=== PATIENT | female | born 1950 | race Caucasian/White ===

== ENCOUNTER → 2016-09-12 | Outpatient (CLI) | payer MEDICARE ==
[~2016-09-12] MED LIST: /ESCI20TA OR; ADVAIR INH; BABY81CH OR; BACT2CRE EX; CIPRO PO; DIPH2.5L OR; FLAG500T OR; GLUCTAB2 OR; HYDR25TA6 OR; LOPROX TOP; NASONEX; PLAV75TA2 OR; PREPARATION H TOP; PRIL20CA OR; SING10TA31 PO; VALS40TA OR; XANA1TAB OR; ZANT150T OR; ZOCO40TA OR; mucinex PO; xyzal PO
--- NOTE | 2016-09-12 10:19 | REPMRS ---
Patient History The patient states she had a clinical breast exam in 09/2016. Patient is postmenopausal and has history of other cancer at age 38. Family history of prostate cancer in brother at age 50 or over. Digital Woman Screen Mammo: September 12, 2016 - Exam #: [id number] Bilateral CC and MLO view(s) were taken. Technologist: Lashell Rutledge, Technologist Prior study comparison: May 25, 2015, digital woman screen mammo performed at [facility] to [facility]. May 07, 2014, digital woman screen mammo performed at [facility]. FINDINGS: There are scattered fibroglandular densities. There has been no change in the appearance of the mammogram from the prior studies. There is a mild amount of residual fibroglandular tissue which is fairly symmetric. There is no interval development of dominant mass, architectural distortion, or clustered microcalcification suggestive of malignancy. ASSESSMENT: BI-RADS/ACR category 1 mammogram. Negative. Recommendation Routine screening mammogram in 1 year (for women over age 40). This mammogram was interpreted with the aid of an FDA-approved computer-aided dectection system. Electronically Signed By: Wood Kwong MD 09/12/16 [id number]
== END ==
LOC: M WHC 08:21
PROVIDERS: ATTEND Nurse Practitioner Women's Health
DX: Z12.31 Encounter for screening mammogram for malignant neoplasm of breast (principal); Z78.0 Asymptomatic menopausal state
CPT/HCPCS: G0202; G0463

== ENCOUNTER → 2017-01-21 | Outpatient (REF) | payer MEDICARE ==
[2017-01-21 12:25] LABS: INR 1.15
[2017-01-21 12:39] LABS: ANION GAP 9 MEQ/L (8-16); BLOOD UREA NITROGEN 17 MG/DL (7-18); CALCIUM LEVEL 9.7 MG/DL (8.8-10.2); CARBON DIOXIDE LEVEL 27 MEQ/L (21-32); CHLORIDE LEVEL 105 MEQ/L (98-107); CREATININE FOR GFR 0.84 MG/DL (0.55-1.02); GLOMERULAR FILTRATION RATE > 60.0 (>45); GLUCOSE, FASTING 119 MG/DL (80-110); POTASSIUM SERUM 4.2 MEQ/L (3.5-5.1); SODIUM LEVEL 141 MEQ/L (136-145)
[2017-01-21 16:16] LABS: MEAN CORPUSCULAR HEMOGLOBIN 28.8 pg (27.0-33.0); MEAN CORPUSCULAR HGB CONC 32.1 g/dl (32.0-36.5); MEAN CORPUSCULAR VOLUME 89.6 fl (80.0-96.0); WHITE BLOOD COUNT 5.8 K/mm3 (4.0-10.0)
== END ==
LOC: M LABDRAWP 11:57
PROVIDERS: ATTEND Internal Medicine Cardiovascular Disease
DX: I48.0 Paroxysmal atrial fibrillation (principal)

== ENCOUNTER → 2017-01-21 | Outpatient (REF) | payer MEDICARE ==
[2017-01-21 12:36] LABS: ALBUMIN 3.6 GM/DL (3.2-5.2); ALBUMIN/GLOBULIN RATIO 1.33 (1.00-1.93); ALKALINE PHOSPHATASE 68 U/L (45-117); ALT/SGPT 24 U/L (12-78); ANION GAP 9 MEQ/L (8-16); AST/SGOT 14 U/L (15-37); BILIRUBIN,TOTAL 0.4 MG/DL (0.2-1.0); BLOOD UREA NITROGEN 17 MG/DL (7-18); CALCIUM LEVEL 9.4 MG/DL (8.8-10.2); CARBON DIOXIDE LEVEL 27 MEQ/L (21-32); CHLORIDE LEVEL 105 MEQ/L (98-107); CHOLESTEROL LEVEL 165 MG/DL (<200); CREATININE FOR GFR 0.86 MG/DL (0.55-1.02); GLOMERULAR FILTRATION RATE > 60.0 (>45); GLUCOSE, FASTING 121 MG/DL (80-110); POTASSIUM SERUM 4.2 MEQ/L (3.5-5.1); SODIUM LEVEL 141 MEQ/L (136-145); TOTAL PROTEIN 6.3 GM/DL (6.4-8.2); TRIGLYCERIDES LEVEL 154 MG/DL (<150)
[2017-01-21 12:51] LABS: MEAN CORPUSCULAR HEMOGLOBIN 29.2 pg (27.0-33.0); MEAN CORPUSCULAR HGB CONC 32.1 g/dl (32.0-36.5); MEAN CORPUSCULAR VOLUME 91.1 fl (80.0-96.0); RED CELL DISTRIBUTION WIDTH 13.9 % (11.5-14.5); WHITE BLOOD COUNT 5.6 K/mm3 (4.0-10.0)
== END ==
LOC: M SFHCPLAZ 09:09
PROVIDERS: ATTEND Nurse Practitioner Family
DX: I69.30 Unspecified sequelae of cerebral infarction (principal); E11.9 Type 2 diabetes mellitus without complications; E78.2 Mixed hyperlipidemia; I48.0 Paroxysmal atrial fibrillation

== ENCOUNTER → 2017-01-30 | Outpatient (REF) | payer MEDICARE | LOC: M SFHCPLAZ 11:11 | PROVIDERS: ATTEND Nurse Practitioner Family | DX: E11.9 Type 2 diabetes mellitus without complications (principal) ==

== ENCOUNTER → 2017-02-07 | Outpatient (REF) | payer MEDICARE ==
[2017-02-07 11:58] LABS: MEAN CORPUSCULAR HEMOGLOBIN 28.7 pg (27.0-33.0); MEAN CORPUSCULAR HGB CONC 32.4 g/dl (32.0-36.5); MEAN CORPUSCULAR VOLUME 88.6 fl (80.0-96.0); RED CELL DISTRIBUTION WIDTH 14.2 % (11.5-14.5); WHITE BLOOD COUNT 4.9 K/mm3 (4.0-10.0)
[2017-02-07 12:21] LABS: INR 2.81
== END ==
LOC: M LABDRAWP 11:40
PROVIDERS: ATTEND Internal Medicine Cardiovascular Disease
DX: Z79.01 Long term (current) use of anticoagulants (principal); Z95.2 Presence of prosthetic heart valve

== ENCOUNTER → 2017-02-21 | Outpatient (REF) | payer MEDICARE ==
[2017-02-21 13:59] LABS: MEAN CORPUSCULAR HEMOGLOBIN 29.1 pg (27.0-33.0); MEAN CORPUSCULAR HGB CONC 32.7 g/dl (32.0-36.5); MEAN CORPUSCULAR VOLUME 88.9 fl (80.0-96.0); WHITE BLOOD COUNT 5.3 K/mm3 (4.0-10.0)
[2017-02-21 14:09] LABS: INR 2.9
== END ==
LOC: M WUC 12:53
PROVIDERS: ATTEND Internal Medicine Cardiovascular Disease
DX: Z51.81 Encounter for therapeutic drug level monitoring (principal); Z79.01 Long term (current) use of anticoagulants; Z95.2 Presence of prosthetic heart valve

== ENCOUNTER → 2017-03-14 | Outpatient (REF) | payer MEDICARE ==
[~2017-03-14] MED LIST changes: +ALBU83IN INH; +COUM2.5T17 PO; +FISH1000 PO; +HYDR12.55 PO; +LEVOTAB10 PO; +METF500T4 PO; +METO1TAB32 PO; +PATA2.5S OP; +PEPC1TAB2 PO; +VALS1TAB49 PO; +WARF-18 PO
[2017-03-14 12:28] LABS: INR 2.56
== END ==
LOC: M LABDRAWP 11:41
PROVIDERS: ATTEND Internal Medicine Cardiovascular Disease
DX: Z79.01 Long term (current) use of anticoagulants (principal)

== ENCOUNTER 2017-04-05 17:27 | Emergency (ER) | payer MEDICARE ==
[~2017-04-05] VITALS: Ht 162.6 cm; Wt 99.5 kg
[~2017-04-05 17:27] MED LIST changes: -ALBU83IN INH; -COUM2.5T17 PO; -FISH1000 PO; -HYDR12.55 PO; -LEVOTAB10 PO; -METF500T4 PO; -METO1TAB32 PO; -PATA2.5S OP; -PEPC1TAB2 PO; -VALS1TAB49 PO; -WARF-18 PO
[2017-04-05] MEDS ORDERED: PEPC1TAB2 PO (17:59)
[2017-04-05] MEDS ORDERED: METO1TAB32 PO (17:59)
[2017-04-05] MEDS ORDERED: LEVOTAB10 PO (17:59)
[2017-04-05] MEDS ORDERED: HYDR12.55 PO (17:59)
[2017-04-05] MEDS ORDERED: VALS1TAB49 PO (17:59)
[2017-04-05] MEDS ORDERED: METF500T4 PO (17:59)
[2017-04-05] MEDS ORDERED: ALBU83IN INH (17:59)
[2017-04-05] MEDS ORDERED: WARF-18 PO (17:59)
[2017-04-05 18:59] LABS: BASO % 0.5 % (0.0-1.0); EOS # 0.1 K/mm3 (0.0-0.50); EOS % 2.8 % (0.0-3.0); LARGE UNSTAINED CELL # 0.2 K/mm3 (0.0-0.4); LYMPH # 0.9 K/mm3 (1.5-4.5); LYMPH % 14.4 % (24.0-44.0); MEAN CORPUSCULAR HEMOGLOBIN 29.7 pg (27.0-33.0); MEAN CORPUSCULAR HGB CONC 34.2 g/dl (32.0-36.5); MEAN CORPUSCULAR VOLUME 86.8 fl (80.0-96.0); MONO # 0.4 K/mm3 (0.0-0.8); NEUTROPHILS # 3.6 K/mm3 (1.8-7.7); NEUTROPHILS % 71.2 % (36.0-66.0); PLATELET COUNT, AUTOMATED 255 k/mm3 (150-450); RED CELL DISTRIBUTION WIDTH 14.7 % (11.5-14.5); WHITE BLOOD COUNT 5.1 K/mm3 (4.0-10.0)
[2017-04-05 19:12] LABS: INR 2.24
[2017-04-05 19:19] LABS: ANION GAP 10 MEQ/L (8-16); BLOOD UREA NITROGEN 12 MG/DL (7-18); CALCIUM LEVEL 9.3 MG/DL (8.8-10.2); CARBON DIOXIDE LEVEL 28 MEQ/L (21-32); CHLORIDE LEVEL 101 MEQ/L (98-107); CREATININE FOR GFR 0.63 MG/DL (0.55-1.02); GLOMERULAR FILTRATION RATE > 60.0 (>45); GLUCOSE, FASTING 111 MG/DL (80-110); POTASSIUM SERUM 3.6 MEQ/L (3.5-5.1); SODIUM LEVEL 139 MEQ/L (136-145)
--- NOTE | 2017-04-05 19:20 | REPUSA ---
CT of the head Clinical history: Headache. Protocol: Multiple axial CT images obtained with 5 mm slice thickness were obtained through the head without administration of contrast. Findings: The ventricles and sulci are symmetric but prominent in size bilaterally. There is chronic encephalomalacia in the right parietal lobe. There is no evidence of acute hemorrhage or infarct. The re is no midline shift, mass effect, or extra-axial fluid collection. The osseous structures are unre markable. The visualized paranasal sinuses and mastoid air cells are clear. Impression: No acute hemorrhage or infarct. Moderate age-related atrophy. Chronic infarct in the righ t parietal lobe.
[2017-04-05] MEDS ORDERED: COUM2.5T17 PO (19:42)
[2017-04-05] MEDS ORDERED: FISH1000 PO (19:42)
[2017-04-05] MEDS ORDERED: PATA2.5S OP (19:42)
--- NOTE | 2017-04-05 19:58 | REP ---
HISTORY: Chest pain. COMPARISON: 08/02/2015 Note is again made of global cardiomegaly with previous median sternotomy, status quo. Chronic fibrotic changes seen in the lung bases particularly on the left, status quo. There is mild thickening of the right minor fissure with a subtle increase in the interstitial markings throughout the lung kincaid. IMPRESSION: Cardiomegaly and mild interstitial edema is suspected. Signed by Sean Duval DO 04/06/2017 08:45 A
[2017-04-05] MEDS ORDERED: FUROSEMIDE 40 MG/4 ML VIAL (J1940) IV ONE (20:45)
[2017-04-05 21:25] VITALS: BP 164/72
--- NOTE | 2017-04-07 02:27 | ECGEPIP ---
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
== END 2017-04-05 21:26 | disposition short-term general hospital (02) ==
LOC: EDBD 17:27 → M ED 17:27 → EDSEX 17:27 → M ED 21:26
DX: I49.5 Sick sinus syndrome (principal); I50.9 Heart failure, unspecified; I45.10 Unspecified right bundle-branch block; I44.0 Atrioventricular block, first degree; I11.0 Hypertensive heart disease with heart failure; E11.9 Type 2 diabetes mellitus without complications; I48.91 Unspecified atrial fibrillation; Z86.73 Personal history of transient ischemic attack (TIA), and cerebral infarction without residual deficits; J30.1 Allergic rhinitis due to pollen; Z79.899 Other long term (current) drug therapy; Z79.82 Long term (current) use of aspirin; Z79.51 Long term (current) use of inhaled steroids; Z79.84 Long term (current) use of oral hypoglycemic drugs; Z79.01 Long term (current) use of anticoagulants
CPT/HCPCS: 70450; 71010; 80048; 82550; 82553; 83880; 84443; 84484; 85025; 85610; 85730; 93005; 93041; 94760; 99285; G0463

== ENCOUNTER → 2017-04-11 | Outpatient (REF) | payer MEDICARE ==
[~2017-04-11] MED LIST changes: +ALBU83IN INH; +COUM2.5T17 PO; +FISH1000 PO; +HYDR12.55 PO; +LEVOTAB10 PO; +METF500T4 PO; +METO1TAB32 PO; +PATA2.5S OP; +PEPC1TAB2 PO; +VALS1TAB49 PO; +WARF-18 PO
[2017-04-11 12:38] LABS: MEAN CORPUSCULAR HEMOGLOBIN 29.7 pg (27.0-33.0); MEAN CORPUSCULAR HGB CONC 34.2 g/dl (32.0-36.5); MEAN CORPUSCULAR VOLUME 86.7 fl (80.0-96.0); RED CELL DISTRIBUTION WIDTH 14.7 % (11.5-14.5); WHITE BLOOD COUNT 5.2 K/mm3 (4.0-10.0)
[2017-04-11 12:43] LABS: INR 1.43
== END ==
LOC: M LAB REF 11:28
PROVIDERS: ATTEND Internal Medicine Cardiovascular Disease
DX: Z51.81 Encounter for therapeutic drug level monitoring (principal); Z79.01 Long term (current) use of anticoagulants; Z95.2 Presence of prosthetic heart valve

== ENCOUNTER → 2017-04-19 | Outpatient (REF) | payer MEDICARE ==
[2017-04-19 13:51] LABS: MEAN CORPUSCULAR HEMOGLOBIN 29.2 pg (27.0-33.0); MEAN CORPUSCULAR HGB CONC 32.9 g/dl (32.0-36.5); MEAN CORPUSCULAR VOLUME 88.5 fl (80.0-96.0); RED CELL DISTRIBUTION WIDTH 14.5 % (11.5-14.5); WHITE BLOOD COUNT 5.2 K/mm3 (4.0-10.0)
[2017-04-19 13:54] LABS: INR 2.32
== END ==
LOC: M LAB REF 13:35
PROVIDERS: ATTEND Internal Medicine Cardiovascular Disease
DX: N95.2 Postmenopausal atrophic vaginitis (principal); Z51.81 Encounter for therapeutic drug level monitoring; Z79.01 Long term (current) use of anticoagulants
CPT/HCPCS: 85027; 85610; G0463

== ENCOUNTER → 2017-05-01 | Outpatient (REF) | payer MEDICARE ==
[2017-05-01 11:59] LABS: MEAN CORPUSCULAR HEMOGLOBIN 29.3 pg (27.0-33.0); MEAN CORPUSCULAR HGB CONC 33.5 g/dl (32.0-36.5); MEAN CORPUSCULAR VOLUME 87.6 fl (80.0-96.0); RED CELL DISTRIBUTION WIDTH 14.2 % (11.5-14.5); WHITE BLOOD COUNT 4.6 K/mm3 (4.0-10.0)
[2017-05-01 12:04] LABS: INR 3.45
== END ==
LOC: M LABDRAWP 11:48
PROVIDERS: ATTEND Internal Medicine Cardiovascular Disease
DX: Z79.01 Long term (current) use of anticoagulants (principal); Z95.2 Presence of prosthetic heart valve

== ENCOUNTER → 2017-05-15 | Outpatient (REF) | payer MEDICARE ==
[2017-05-15 12:35] LABS: MEAN CORPUSCULAR HEMOGLOBIN 29.4 pg (27.0-33.0); MEAN CORPUSCULAR HGB CONC 33.5 g/dl (32.0-36.5); MEAN CORPUSCULAR VOLUME 87.8 fl (80.0-96.0); RED CELL DISTRIBUTION WIDTH 14.3 % (11.5-14.5); WHITE BLOOD COUNT 4.5 K/mm3 (4.0-10.0)
== END ==
LOC: M LABDRWAD 11:36
PROVIDERS: ATTEND Internal Medicine Cardiovascular Disease
DX: Z79.01 Long term (current) use of anticoagulants (principal); Z95.0 Presence of cardiac pacemaker

== ENCOUNTER → 2017-05-27 | Outpatient (REF) | payer MEDICARE ==
[2017-05-27 12:23] LABS: MEAN CORPUSCULAR HEMOGLOBIN 29.3 pg (27.0-33.0); MEAN CORPUSCULAR HGB CONC 32.6 g/dl (32.0-36.5); MEAN CORPUSCULAR VOLUME 89.9 fl (80.0-96.0); RED CELL DISTRIBUTION WIDTH 14.6 % (11.5-14.5); WHITE BLOOD COUNT 4.9 K/mm3 (4.0-10.0)
[2017-05-27 12:26] LABS: INR 2.32
== END ==
LOC: M LABDRAWP 11:32
PROVIDERS: ATTEND Internal Medicine Cardiovascular Disease
DX: Z95.2 Presence of prosthetic heart valve (principal); Z79.01 Long term (current) use of anticoagulants

== ENCOUNTER → 2017-06-10 | Outpatient (REF) | payer MEDICARE ==
[2017-06-10 11:47] LABS: MEAN CORPUSCULAR HEMOGLOBIN 28.9 pg (27.0-33.0); MEAN CORPUSCULAR HGB CONC 32.7 g/dl (32.0-36.5); MEAN CORPUSCULAR VOLUME 88.3 fl (80.0-96.0); RED CELL DISTRIBUTION WIDTH 14.7 % (11.5-14.5); WHITE BLOOD COUNT 5.1 10^3/uL (4.0-10.0)
[2017-06-10 12:00] LABS: INR 2.38
== END ==
LOC: M LABDRAWP 11:27
PROVIDERS: ATTEND Internal Medicine Cardiovascular Disease
DX: Z51.81 Encounter for therapeutic drug level monitoring (principal); Z79.01 Long term (current) use of anticoagulants; Z95.2 Presence of prosthetic heart valve
CPT/HCPCS: 36415; 69210; 85027; 85610; G0463

== ENCOUNTER → 2017-06-13 | Outpatient (CLI) | payer MEDICARE ==
--- NOTE | 2017-06-13 10:31 | REP ---
Chest x-ray: Two views. History: Cough. Comparison study April 05, 2017. Findings: The patient is status post prior median sternotomy and aortic valve replacement. A bipolar pacemaker is seen in the right heart via the left subclavian vein region. The heart is enlarged unchanged from the comparison radiograph. There is some linear fibrosis versus chronic discoid atelectasis in the left perihilar region. This is unchanged. Lung kincaid are otherwise clear. The pleural angles are sharp. There are mild degenerative changes in the thoracic spine and aorta. Impression: Cardiomegaly with pacemaker. Patient status post aortic valve replacement. Fibroatelectatic changes left perihilar region. No acute abnormality seen. Signed by Eduardo Correa MD 06/13/2017 11:24 A
== END ==
LOC: M SMT 09:40
PROVIDERS: ATTEND Internal Medicine Pulmonary Disease
DX: I51.7 Cardiomegaly (principal); Z95.0 Presence of cardiac pacemaker; R05 Cough

== ENCOUNTER 2017-06-19 22:39 | Emergency (ER) | payer MEDICARE ==
[~2017-06-19] VITALS: Ht 160 cm; Wt 100.0 kg
[2017-06-19] MEDS ORDERED: methylPREDNISolone INJ 125 MG/2 ML VIAL (J2930) IV ONE (23:15)
[2017-06-19 23:34] LABS: ABG BASE EXCESS -1.2 (-2.0-2.0); ABG HCO3 23.2 MEQ/L (22.0-26.0); ABG PARTIAL PRESSURE CO2 38.2 mmHg (35.0-45.0); ABG PARTIAL PRESSURE O2 64.9 mmHg (75.0-100.0); ABG STANDARD HCO3 23.3 MEQ/L (22.0-26.0); ABG TOTAL CO2 24.4 MEQ/L (23.0-31.0); ABG pH (ARTERIAL) 7.402 UNITS (7.350-7.450)
[2017-06-19 23:34] LABS: BASO # 0.1 10^3/uL (0.0-0.2); BASO % 0.5 % (0.0-1.0); EOS # 0.2 10^3/uL (0.0-0.50); EOS % 1.4 % (0.0-3.0); IMMATURE GRANULOCYTE % 0.5 % (0-0); LYMPH # 1.8 10^3/uL (1.5-4.5); LYMPH % 13.6 % (24.0-44.0); MEAN CORPUSCULAR HEMOGLOBIN 28.9 pg (27.0-33.0); MEAN CORPUSCULAR HGB CONC 32.5 g/dl (32.0-36.5); MEAN CORPUSCULAR VOLUME 88.9 fl (80.0-96.0); MONO # 1.1 10^3/uL (0.0-0.8); MONO % 8.4 % (0.0-5.0); NEUTROPHILS # 9.8 10^3/uL (1.8-7.7); NEUTROPHILS % 75.6 % (36.0-66.0); PLATELET COUNT, AUTOMATED 366 10^3/uL (150-450); RED CELL DISTRIBUTION WIDTH 14.6 % (11.5-14.5)
[2017-06-19] MEDS: IPRATROPIUM 0.5MG/ALBUTEROL 2.5MG INH SOL UD 3ML (DUONEB)(J7620) NEB PRN ×2 (23:39→23:41)
[2017-06-19 23:41] LABS: INR 2.94
[2017-06-19] MEDS ORDERED: MORPHINE 2 MG/ML 1ML SYRINGE IV ONE (23:45)
[2017-06-19] MEDS ORDERED: ONDANSETRON 4MG/2ML VIAL (J2405) IV ONE (23:45)
[2017-06-19] MEDS ORDERED: FUROSEMIDE 40 MG/4 ML VIAL (J1940) IV ONE (23:45)
[2017-06-19 23:54] LABS: ANION GAP 10 MEQ/L (8-16); BLOOD UREA NITROGEN 20 MG/DL (7-18); CALCIUM LEVEL 9.7 MG/DL (8.8-10.2); CARBON DIOXIDE LEVEL 26 MEQ/L (21-32); CHLORIDE LEVEL 101 MEQ/L (98-107); CREATININE FOR GFR 0.83 MG/DL (0.55-1.02); GLOMERULAR FILTRATION RATE > 60.0 (>45); GLUCOSE, FASTING 230 MG/DL (80-110); POTASSIUM SERUM 3.7 MEQ/L (3.5-5.1); SODIUM LEVEL 137 MEQ/L (136-145)
[2017-06-20] MEDS ORDERED: METOPROLOL TART 50 MG TAB PO ONE
[2017-06-20] MEDS ORDERED: METOPROLOL 5 MG/5 ML VIAL IV SCH
[2017-06-20 00:03] VITALS: BP 153/95
[2017-06-20 03:02] VITALS: BP 118/71
--- NOTE | 2017-06-20 03:04 | ECGEPIP ---
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
--- NOTE | 2017-06-20 07:36 | REP ---
Portable chest, 11:33 p.m., single AP view, patient sitting: Comparison is 06/13/2017. There is interstitial coarsening compatible with vascular engorgement and interstitial infiltrates. There is a focal infiltrate inferiorly in the right lung and a focal infiltrate medially in the left upper lobe as changes. Discoid atelectasis versus scarring is present in the left mid lung, unchanged. Sternotomy wires and cardiomegaly are again identified, unchanged. Pacemaker is again identified, unchanged. There is a cardiac valve replacement. Half half half half Signed by Wood Springer MD 06/20/2017 07:27 A
--- NOTE | 2017-06-21 07:35 | ECGEPIP ---
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
== END 2017-06-20 03:09 | disposition short-term general hospital (02) ==
LOC: EDBD 22:39 → M ED 22:39
DX: I21.4 Non-ST elevation (NSTEMI) myocardial infarction (principal); I50.9 Heart failure, unspecified; I47.2 Ventricular tachycardia; I48.91 Unspecified atrial fibrillation; I11.0 Hypertensive heart disease with heart failure; J44.9 Chronic obstructive pulmonary disease, unspecified; G47.33 Obstructive sleep apnea (adult) (pediatric); F95.9 Tic disorder, unspecified; I25.2 Old myocardial infarction; J45.909 Unspecified asthma, uncomplicated; F41.9 Anxiety disorder, unspecified; E78.9 Disorder of lipoprotein metabolism, unspecified; Z79.01 Long term (current) use of anticoagulants; Z79.84 Long term (current) use of oral hypoglycemic drugs; Z79.899 Other long term (current) drug therapy; Z79.82 Long term (current) use of aspirin; Z86.73 Personal history of transient ischemic attack (TIA), and cerebral infarction without residual deficits; Z95.4 Presence of other heart-valve replacement
CPT/HCPCS: 36600; 51702; 71010; 80048; 82550; 82553; 82803; 83605; 83880; 84443; 84484; 85025; 85610; 87040; 93005; 93041; 94640; 96374; 96375; 99285; J1940; J2405; J2930

== ENCOUNTER → 2017-07-23 | Outpatient (REF) | payer MEDICARE ==
[2017-07-23 13:32] LABS: MEAN CORPUSCULAR HEMOGLOBIN 28.6 pg (27.0-33.0); MEAN CORPUSCULAR HGB CONC 31.7 g/dl (32.0-36.5); MEAN CORPUSCULAR VOLUME 90.1 fl (80.0-96.0); PLATELET COUNT, AUTOMATED 248 10^3/uL (150-450); RED CELL DISTRIBUTION WIDTH 14.5 % (11.5-14.5); WHITE BLOOD COUNT 5.3 10^3/uL (4.0-10.0)
[2017-07-23 13:49] LABS: INR 3.51
== END ==
LOC: M LABDRAWP 13:15
PROVIDERS: ATTEND Internal Medicine Cardiovascular Disease
DX: Z51.81 Encounter for therapeutic drug level monitoring (principal); Z79.01 Long term (current) use of anticoagulants; Z95.2 Presence of prosthetic heart valve

== ENCOUNTER → 2017-08-05 | Outpatient (REF) | payer MEDICARE ==
[2017-08-05 13:25] LABS: MEAN CORPUSCULAR HEMOGLOBIN 28.5 pg (27.0-33.0); MEAN CORPUSCULAR HGB CONC 31.4 g/dl (32.0-36.5); MEAN CORPUSCULAR VOLUME 90.7 fl (80.0-96.0); PLATELET COUNT, AUTOMATED 254 10^3/uL (150-450); RED CELL DISTRIBUTION WIDTH 14.6 % (11.5-14.5); WHITE BLOOD COUNT 5.6 10^3/uL (4.0-10.0)
[2017-08-05 13:39] LABS: INR 2.87
== END ==
LOC: M LABDRAWP 11:29 → M LAB REF 11:29
PROVIDERS: ATTEND Internal Medicine Cardiovascular Disease
DX: Z95.2 Presence of prosthetic heart valve (principal); Z79.01 Long term (current) use of anticoagulants

== ENCOUNTER → 2017-08-19 | Outpatient (REF) | payer MEDICARE ==
[2017-08-19 12:47] LABS: MEAN CORPUSCULAR HEMOGLOBIN 28.7 pg (27.0-33.0); MEAN CORPUSCULAR HGB CONC 31.5 g/dl (32.0-36.5); MEAN CORPUSCULAR VOLUME 91.1 fl (80.0-96.0); PLATELET COUNT, AUTOMATED 282 10^3/uL (150-450); RED CELL DISTRIBUTION WIDTH 14.9 % (11.5-14.5); WHITE BLOOD COUNT 7.4 10^3/uL (4.0-10.0)
[2017-08-19 13:09] LABS: INR 3.05
== END ==
LOC: M LABDRAWP 12:02
PROVIDERS: ATTEND Internal Medicine Cardiovascular Disease
DX: Z79.01 Long term (current) use of anticoagulants (principal); Z95.2 Presence of prosthetic heart valve

== ENCOUNTER → 2017-09-03 | Outpatient (REF) | payer MEDICARE ==
[2017-09-03 12:20] LABS: INR 2.75
== END ==
LOC: M LABDRAW1 11:48 → M LABDRAWP 11:49
PROVIDERS: ATTEND Internal Medicine Cardiovascular Disease
DX: I48.0 Paroxysmal atrial fibrillation (principal); Z51.81 Encounter for therapeutic drug level monitoring; Z79.01 Long term (current) use of anticoagulants

== ENCOUNTER → 2017-09-18 | Outpatient (CLI) | payer MEDICARE ==
[2017-09-18 13:19] LABS: INR 2.63; PROTHROMBIN TIME 29.2 SECONDS (12.4-14.5)
== END ==
LOC: M SMT 08:56
DX: I48.0 Paroxysmal atrial fibrillation (principal); Z79.01 Long term (current) use of anticoagulants
CPT/HCPCS: 85610

== ENCOUNTER → 2017-10-09 | Outpatient (CLI) | payer MEDICARE ==
[2017-10-09 11:25] LABS: PROTHROMBIN TIME 44.3 SECONDS (12.4-14.5)
== END ==
LOC: M SMT 09:38
DX: I48.0 Paroxysmal atrial fibrillation (principal); Z79.01 Long term (current) use of anticoagulants
CPT/HCPCS: 85610

== ENCOUNTER → 2017-10-16 | Outpatient (CLI) | payer MEDICARE ==
[2017-10-16 11:12] LABS: PROTHROMBIN TIME 29.8 SECONDS (12.4-14.5)
== END ==
LOC: M SMT 09:49
DX: I48.0 Paroxysmal atrial fibrillation (principal); Z51.81 Encounter for therapeutic drug level monitoring; Z79.01 Long term (current) use of anticoagulants
CPT/HCPCS: 85610

== ENCOUNTER → 2017-11-20 | Outpatient (CLI) | payer MEDICARE ==
[2017-11-20 12:58] LABS: HEMATOCRIT 39.4 % (36.0-47.0); HEMOGLOBIN 12.2 g/dl (12.0-16.0); MEAN CORPUSCULAR HEMOGLOBIN 27.2 pg (27.0-33.0); MEAN CORPUSCULAR VOLUME 87.8 fl (80.0-96.0); PLATELET COUNT, AUTOMATED 293 10^3/uL (150-450); RED BLOOD COUNT 4.49 10^6/uL (4.00-5.40); RED CELL DISTRIBUTION WIDTH 15.5 % (11.5-14.5); WHITE BLOOD COUNT 6.5 10^3/uL (4.0-10.0)
[2017-11-20 13:09] LABS: INR 2.07
== END ==
LOC: M SMT 10:02
DX: I48.0 Paroxysmal atrial fibrillation (principal); Z79.01 Long term (current) use of anticoagulants
CPT/HCPCS: 85610

== ENCOUNTER → 2018-01-28 | Outpatient (REF) | payer MEDICARE ==
[2018-01-28 12:44] LABS: ALBUMIN 3.7 GM/DL (3.2-5.2); ALBUMIN/GLOBULIN RATIO 1.28 (1.00-1.93); ALKALINE PHOSPHATASE 79 U/L (45-117); ALT/SGPT 16 U/L (12-78); ANION GAP 8 MEQ/L (8-16); AST/SGOT 13 U/L (7-37); BILIRUBIN,TOTAL 0.4 MG/DL (0.2-1.0); BLOOD UREA NITROGEN 22 MG/DL (7-18); CALCIUM LEVEL 8.7 MG/DL (8.8-10.2); CARBON DIOXIDE LEVEL 28 MEQ/L (21-32); CHLORIDE LEVEL 108 MEQ/L (98-107); CREATININE FOR GFR 0.77 MG/DL (0.55-1.30); FREE T4 1.07 NG/DL (0.76-1.46); GLOMERULAR FILTRATION RATE > 60.0 (>39); GLUCOSE, FASTING 119 MG/DL (70-100); POTASSIUM SERUM 4.2 MEQ/L (3.5-5.1); SODIUM LEVEL 144 MEQ/L (136-145); TOTAL PROTEIN 6.6 GM/DL (6.4-8.2)
[2018-01-28 12:58] LABS: ESTIMATED AVERAGE GLUCOSE 148 MG/DL (60-110); HEMOGLOBIN A1c 6.8 %
== END ==
LOC: M SFHCPLAZ 08:23
DX: E78.2 Mixed hyperlipidemia (principal); E11.9 Type 2 diabetes mellitus without complications
CPT/HCPCS: 84443

== ENCOUNTER → 2018-07-03 | Outpatient (REF) | payer MEDICARE ==
[2018-07-03 17:51] LABS: BASO % 0.6 % (0.0-1.0); EOS # 0.1 10^3/uL (0.0-0.50); EOS % 2.1 % (0.0-3.0); HEMATOCRIT 40.7 % (36.0-47.0); HEMOGLOBIN 12.7 g/dl (12.0-15.5); IMMATURE GRANULOCYTE % 0.3 % (0-3.0); LYMPH % 15.1 % (24.0-44.0); MEAN CORPUSCULAR HEMOGLOBIN 28.2 pg (27.0-33.0); MEAN CORPUSCULAR HGB CONC 31.2 g/dl (32.0-36.5); MEAN CORPUSCULAR VOLUME 90.2 fl (80.0-96.0); MONO # 0.7 10^3/uL (0.0-0.8); MONO % 11.4 % (0.0-5.0); NEUTROPHILS # 4.4 10^3/uL (1.8-7.7); NEUTROPHILS % 70.5 % (36.0-66.0); PLATELET COUNT, AUTOMATED 301 10^3/uL (150-450); RED BLOOD COUNT 4.51 10^6/uL (4.00-5.40); RED CELL DISTRIBUTION WIDTH 15.1 % (11.5-14.5); WHITE BLOOD COUNT 6.3 10^3/uL (4.0-10.0)
[2018-07-03 18:03] LABS: FERRITIN 16 NG/ML (8-252); FOLATE 17.9 NG/ML; TOTAL 25(OH) VITAMIN D 26.6 NG/ML (30.0-100.0)
== END ==
LOC: M SFHCPLAZ 14:53
DX: E55.9 Vitamin D deficiency, unspecified (principal); R53.83 Other fatigue; Z79.899 Other long term (current) drug therapy; Z23 Encounter for immunization
CPT/HCPCS: 82746

== ENCOUNTER → 2018-07-23 | Outpatient (REF) | payer MEDICARE ==
[2018-07-23 13:24] LABS: ALBUMIN 3.4 GM/DL (3.2-5.2); ALKALINE PHOSPHATASE 71 U/L (45-117); ALT/SGPT 22 U/L (12-78); ANION GAP 7 MEQ/L (8-16); AST/SGOT 16 U/L (7-37); BILIRUBIN,TOTAL 0.4 MG/DL (0.2-1.0); BLOOD UREA NITROGEN 24 MG/DL (7-18); CALCIUM LEVEL 8.7 MG/DL (8.8-10.2); CARBON DIOXIDE LEVEL 30 MEQ/L (21-32); CHLORIDE LEVEL 107 MEQ/L (98-107); CHOLESTEROL LEVEL 165 MG/DL (<200); CHOLESTEROL RISK RATIO 3.586 (<5); CREATININE FOR GFR 0.73 MG/DL (0.55-1.30); GLOMERULAR FILTRATION RATE > 60.0 (>39); GLUCOSE, FASTING 117 MG/DL (70-100); HDL CHOLESTEROL 46 MG/DL (>40); LDL CHOLESTEROL 94 MG/DL (<100); NON-HDL-C 119 MG/DL; POTASSIUM SERUM 3.8 MEQ/L (3.5-5.1); SODIUM LEVEL 144 MEQ/L (136-145); TOTAL PROTEIN 6.5 GM/DL (6.4-8.2); TRIGLYCERIDES LEVEL 126 MG/DL (<150)
[2018-07-23 13:34] LABS: ESTIMATED AVERAGE GLUCOSE 143 MG/DL (60-110); HEMOGLOBIN A1c 6.6 %
== END ==
LOC: M SFHCPLAZ 09:25
DX: E11.9 Type 2 diabetes mellitus without complications (principal); E78.2 Mixed hyperlipidemia
CPT/HCPCS: 80053

== ENCOUNTER → 2018-08-20 | Outpatient (CLI) | payer MEDICARE | LOC: M WHC 13:56 | DX: Z12.31 Encounter for screening mammogram for malignant neoplasm of breast (principal) | CPT/HCPCS: 77067 ==

== ENCOUNTER → 2018-12-05 | Outpatient (REF) | payer MEDICARE ==
[2018-12-05 17:38] LABS: BASO % 0.5 % (0.0-1.0); EOS # 0.1 10^3/uL (0.0-0.50); EOS % 1.6 % (0.0-3.0); HEMATOCRIT 39.5 % (36.0-47.0); HEMOGLOBIN 12.2 g/dl (12.0-15.5); LYMPH # 0.7 10^3/uL (1.5-4.5); LYMPH % 12.5 % (24.0-44.0); MEAN CORPUSCULAR HEMOGLOBIN 27.8 pg (27.0-33.0); MEAN CORPUSCULAR HGB CONC 30.9 g/dl (32.0-36.5); MONO # 0.5 10^3/uL (0.0-0.8); MONO % 8.6 % (0.0-5.0); NEUTROPHILS # 4.3 10^3/uL (1.8-7.7); NEUTROPHILS % 76.6 % (36.0-66.0); PLATELET COUNT, AUTOMATED 277 10^3/uL (150-450); RED BLOOD COUNT 4.39 10^6/uL (4.00-5.40); WHITE BLOOD COUNT 5.6 10^3/uL (4.0-10.0)
[2018-12-05 17:50] LABS: BLOOD UREA NITROGEN 19 MG/DL (7-18); CALCIUM LEVEL 8.4 MG/DL (8.8-10.2); CARBON DIOXIDE LEVEL 29 MEQ/L (21-32); CHLORIDE LEVEL 105 MEQ/L (98-107); CREATININE FOR GFR 0.77 MG/DL (0.55-1.30); FERRITIN 14 NG/ML (8-252); FREE T4 0.99 NG/DL (0.76-1.46); GLOMERULAR FILTRATION RATE > 60.0 (>39); GLUCOSE, FASTING 161 MG/DL (70-100); POTASSIUM SERUM 3.9 MEQ/L (3.5-5.1); SODIUM LEVEL 142 MEQ/L (136-145)
[2018-12-05 17:51] LABS: TOTAL 25(OH) VITAMIN D 24.2 NG/ML (30.0-100.0)
[2018-12-05 17:52] LABS: FOLATE 8.3 NG/ML; VITAMIN B12 LEVEL 424 PG/ML
== END ==
LOC: M SFHCPLAZ 13:57
PROVIDERS: ATTEND Nurse Practitioner Family
DX: E55.9 Vitamin D deficiency, unspecified (principal); F32.9 Major depressive disorder, single episode, unspecified; R53.83 Other fatigue

== ENCOUNTER 2018-12-23 01:47 | Observation (INO) | payer MEDICARE ==
[~2018-12-23] VITALS: Ht 160 cm; Wt 95.7 kg
[~2018-12-23 01:47] MED LIST changes: -/ESCI20TA OR; +LEXA1TAB2 OR; -PEPC1TAB2 PO; +PEPC40TA12 PO
[2018-12-23] MEDS ORDERED: CARV6.25 PO (02:19)
[2018-12-23] MEDS ORDERED: CLON0.5T8 PO (02:19)
[2018-12-23] MEDS ORDERED: FURO40TA2 PO (02:19)
[2018-12-23] MEDS ORDERED: LAC-LOT2 TOP (02:19)
[2018-12-23] MEDS ORDERED: ENTR1TAB PO (02:19)
[2018-12-23] MEDS ORDERED: FLUT50SP21 NARES (02:19)
[2018-12-23 02:34] LABS: BASO % 0.2 % (0.0-1.0); EOS # 0.1 10^3/uL (0.0-0.50); EOS % 1.6 % (0.0-3.0); HEMATOCRIT 37.4 % (36.0-47.0); HEMOGLOBIN 11.8 g/dl (12.0-15.5); LYMPH # 0.6 10^3/uL (1.5-4.5); LYMPH % 7.5 % (24.0-44.0); MEAN CORPUSCULAR HEMOGLOBIN 28.3 pg (27.0-33.0); MEAN CORPUSCULAR HGB CONC 31.6 g/dl (32.0-36.5); MEAN CORPUSCULAR VOLUME 89.7 fl (80.0-96.0); MONO # 0.6 10^3/uL (0.0-0.8); MONO % 7.4 % (0.0-5.0); NEUTROPHILS # 7.1 10^3/uL (1.8-7.7); NEUTROPHILS % 82.7 % (36.0-66.0); PLATELET COUNT, AUTOMATED 270 10^3/uL (150-450); RED BLOOD COUNT 4.17 10^6/uL (4.00-5.40); WHITE BLOOD COUNT 8.5 10^3/uL (4.0-10.0)
[2018-12-23 02:49] LABS: INR 1.89
[2018-12-23 03:00] LABS: ALBUMIN 3.6 GM/DL (3.2-5.2); ALT/SGPT 22 U/L (12-78); BILIRUBIN,DIRECT 0.1 MG/DL (0.0-0.2); BILIRUBIN,TOTAL 0.5 MG/DL (0.2-1.0); BLOOD UREA NITROGEN 26 MG/DL (7-18); CALCIUM LEVEL 9.1 MG/DL (8.8-10.2); CARBON DIOXIDE LEVEL 26 MEQ/L (21-32); CHLORIDE LEVEL 110 MEQ/L (98-107); CPK CREATINE PHOSPHOKINASE 55 U/L (26-192); CREATININE FOR GFR 0.88 MG/DL (0.55-1.30); GLOMERULAR FILTRATION RATE > 60.0 (>39); GLUCOSE, FASTING 151 MG/DL (70-100); LIPASE 248 U/L (73-393); POTASSIUM SERUM 3.8 MEQ/L (3.5-5.1); SODIUM LEVEL 143 MEQ/L (136-145); TOTAL PROTEIN 6.6 GM/DL (6.4-8.2); TROPONIN I 0.52 NG/ML (< 0.10)
[2018-12-23] MEDS ORDERED: ONDANSETRON 4MG/2ML VIAL (J2405) IV ONE (03:15)
[2018-12-23] MEDS ORDERED: ISOVUE-370 76% 100ML VIAL (Q9967) As Ordered ONE (03:16)
[2018-12-23] MEDS: MORPHINE 4 MG/ML 1ML VIAL/SYRINGE (J2270) IV PRN ×2 (03:37→16:59)
--- NOTE | 2018-12-23 04:39 | REPVR ---
EXAM: CT Angiography Chest With Contrast EXAM DATE/TIME: 12/23/2018 3:09 AM CLINICAL HISTORY: 68 years old, female; Pain; Chest pain; Type not specified; Additional info: Abd pain, chest pain TECHNIQUE: Imaging protocol: Axial computed tomographic angiography images of the chest with intravenous contrast using CT angiography protocol. Coronal and sagittal reformatted images were created and reviewed. 3D rendering: MIP reconstructed images were created and reviewed. Radiation optimization: All CT scans at this facility use at least one of these dose optimization techniques: automated exposure control; mA and/or kV adjustment per patient size (includes targeted exams where dose is matched to clinical indication); or iterative reconstruction. Contrast material: iso Contrast volume: 100 ml Contrast route: ac COMPARISON: CR PORTABLE CHEST X-RAY 12/23/2018 2:42 AM FINDINGS: Tubes, catheters and devices: Cardiac device position left upper chest with multiple intracardiac leads. Pulmonary arteries: Normal. No pulmonary emboli. Aorta: Aortic valve prosthesis with calcification thoracic aorta. Dilatation of ascending thoracic aorta 4.5 CM. Other arteries: Prominent calcification at the proximal superior mesenteric artery. Lungs: Diffuse interstitial thickening versus vascular congestion with groundglass opacities bilaterally. Left mid lung subsegmental atelectasis. Pleural space: Small pleural effusions bilaterally. Heart: Cardiomegaly. Right to left ventricular ratio 0.8. Questionable artifact or partial intraluminal linear filling defect within a segmental artery to the right upper lung series 401 images 78-80 limited by 3 MM slice thickness and extensive motion. Gallbladder and bile ducts: Cholelithiasis. Intraperitoneal space: Minor fluid expansion of the minor fissure anteriorly. Lymph nodes: Unremarkable. No enlarged lymph nodes. Bones/joints: Postoperative sternotomy. Degenerative change of the spine. Soft tissues: Unremarkable. IMPRESSION: 1. Questionable linear intraluminal filling defect versus artifact segmental artery right upper lobe anteriorly significantly limited by slice thickness and motion. 2. Cardiac enlargement. 3. Dilated ascending thoracic aorta with aortic valve prosthesis. 4. Diffuse groundglass opacities with interstitial thickening versus pulmonary vascular congestion. Electronically signed by: Angie Meneses On 12/23/2018 04:38:43 AM
--- NOTE | 2018-12-23 04:47 | REPVR ---
EXAM: CT Abdomen and Pelvis With Contrast EXAM DATE/TIME: 12/23/2018 3:09 AM CLINICAL HISTORY: 68 years old, female; Pain; Abdominal pain; Generalized; Additional info: Abd pain, chest pain TECHNIQUE: Imaging protocol: Axial computed tomography images of the abdomen and pelvis with intravenous contrast. Coronal and sagittal reformatted images were created and reviewed. Radiation optimization: All CT scans at this facility use at least one of these dose optimization techniques: automated exposure control; mA and/or kV adjustment per patient size (includes targeted exams where dose is matched to clinical indication); or iterative reconstruction. Contrast material: iso Contrast volume: 100 ml Contrast route: ac COMPARISON: CT ABD PELVIS W/O CONTRAST 11/19/2012 4:41 PM FINDINGS: Lower thorax: A small hiatal hernia. ABDOMEN: Liver: Borderline hepatomegaly with longitudinal diameter 19.5 CM. Gallbladder and bile ducts: Cholelithiasis. The gallbladder is elongated with hydropic transverse diameter 5.3 CM. Pancreas: Normal. No ductal dilation. Spleen: Normal. No splenomegaly. Adrenals: Normal. No mass. Kidneys and ureters: Normal. No hydronephrosis. Stomach and bowel: Diverticulosis distal colon. Appendix: No evidence of appendicitis. PELVIS: Bladder: Unremarkable as visualized. Reproductive: Prior hysterectomy. ABDOMEN and PELVIS: Intraperitoneal space: Normal. No free air. No significant fluid collection. Bones/joints: Degenerative change of the spine. Soft tissues: Small umbilical hernia containing fat. Vasculature: Calcification with atherosclerotic irregularity of abdominal aorta. Atherosclerotic plaque of the proximal superior mesenteric artery. Lymph nodes: Normal. No enlarged lymph nodes. IMPRESSION: 1. Elongated hydropic diameter of the gallbladder with cholelithiasis. 2. Distal colonic diverticulosis. 3. Upper normal or borderline hepatomegaly. Electronically signed by: Angie Meneses On 12/23/2018 04:47:14 AM
[2018-12-23 05:18] LABS: MB/CK RELATIVE INDEX 4.07 (< OR =4); TROPONIN I 0.51 NG/ML (< 0.10)
--- NOTE | 2018-12-23 07:00 | REPVR ---
EXAM: US Abdomen Limited, Right Upper Quadrant EXAM DATE/TIME: 12/23/2018 6:42 AM CLINICAL HISTORY: 68 years old, female; Pain; Abdominal pain; Acute; Additional info: Ruq abd pain TECHNIQUE: Imaging protocol: Real-time ultrasound of the abdomen with image documentation. Examination was focused on the right upper quadrant. COMPARISON: CT ABD/PEL W/IV CONTRAST ONLY 12/23/2018 3:14 AM FINDINGS: Liver: Homogeneous appearance of the liver. Gallbladder: Calculi within the gallbladder. Elongated and increased diameter of the gallbladder measuring 13.2 x 5.4 x 4.7 CM. No significant wall thickening. Common bile duct: Common bile duct diameter is measured at 1.3 CM. This is possibly a running is and is unable to be confirmed as ductal structure and could possibly reflect adjacent bowel (duodenum) versus gallbladder neck as there is no evidence of ductal dilatation on comparison CT on the same date. Pancreas: The distal pancreas is not well visualized due to overlapping bowel gas. Right kidney: The right kidney measures 11.7 x 5.2 x 5.0 CM. IMPRESSION: 1. Cholelithiasis with prominent diameter of the gallbladder. 2. Questionable erroneous bile duct diameter which may reflect bowel versus gallbladder neck. Electronically signed by: Angie Meneses On 12/23/2018 07:00:19 AM
--- NOTE | 2018-12-23 08:02 | REP ---
Portable chest, 02:48 a.m., single AP upright view: Comparison is 06/19/2017. There is chronic marked cardiomegaly and sternotomy wires, unchanged. There is a triple lead biventricular pacemaker as an interval change. Previously there was a dual-chamber pacemaker. Cardiac valve replacement, unchanged. The previous interstitial infiltrates have significantly improved. There is interstitial coarsening that has decreased. There is a small amount of fluid in the minor fissure. There is discoid atelectasis in the left mid lung. This is unchanged and, in fact , may represent a parenchymal scar. Impression: Interstitial coarsening that has improved. Chronic cardiomegaly and sternotomy wires. Cardiac valve replacement, unchanged. Pacemaker as described. Electronically Signed by Wood Springer MD 12/23/2018 07:53 A
[2018-12-23 09:13] LABS: MB/CK RELATIVE INDEX 4.32 (< OR =4); TROPONIN I 0.44 NG/ML (< 0.10)
[2018-12-23] MEDS ORDERED: SIMV40TA2 PO (10:22)
[2018-12-23] MEDS ORDERED: CARV12.5 PO (10:22)
[2018-12-23] MEDS ORDERED: MONT10TA2 PO (10:22)
[2018-12-23] MEDS ORDERED: LEXA1TAB2 PO (10:22)
[2018-12-23] MEDS ORDERED: LEVOTAB10 PO (10:22)
[2018-12-23] MEDS ORDERED: RANI15TA PO (10:22)
[2018-12-23] MEDS ORDERED: ASPI81TA26 PO (10:22)
[2018-12-23] MEDS ORDERED: FISH1000 PO (10:24)
[2018-12-23] MEDS ORDERED: ADVA115A INH (10:30)
[2018-12-23] MEDS ORDERED: FLON1SPR (10:32)
[2018-12-23] MEDS ORDERED: PROAAER10 INH (10:33)
[2018-12-23 11:00] VITALS: BP 140/88
[2018-12-23] MEDS ORDERED: FLUTICASONE PROP 0.05% NASAL SPRAY 16 GM (FLONASE) PRN (11:00)
[2018-12-23] MEDS ORDERED: ALBUTEROL 90 MCG/ACT 8GM HFA INHALER INH PRN (11:00)
[2018-12-23] MEDS ORDERED: DEXTROSE 50% 50 ML SYRINGE IV PRN (11:00)
[2018-12-23] MEDS ORDERED: GLUCAGON FOR INJ 1 MG VIAL (J1610) SC PRN (11:00)
[2018-12-23] MEDS ORDERED: clonazePAM 0.5 MG TAB PO PRN (11:00)
[2018-12-23] MEDS ORDERED: GLUCOSE 4 GM CHEW TABLET PO PRN (11:00)
[2018-12-23] MEDS: ADVAIR HFA 115/21MCG INHALER INH SCH ×2 (11:00→20:33)
[2018-12-23] MEDS ORDERED: ACETAMINOPHEN TAB 650MG DOSE (2X325MG) PO PRN (11:15)
--- NOTE | 2018-12-23 11:18 | HPEPDOC ---
General Date of Admission Dec 23, 2018 at 09:34 Chief Complaint The patient is a 68-year-old female admitted with a reason for visit of Nahun Dill n, Elevated Troponin. Source: Patient Exam Limitations: No limitations History of Present Illness Patient is a 68-year-old female who presents to the hospital with complains of abdominal pain. She reports that initially her symptoms started a few days ago after she had food with hot sauce that caused some epigastric pain. She also reports having alternating diarrhea and constipation for the last few days. She also reports a sensation of bloating/gaseous distention. Reports last bowel movement was yesterday morning. Reports she has been trying some Colace at home to help with constipation. Last night, she reports she had pain around the right lower quadrant of her abdomen, 10 over 10 in intensity, burning in nature, radiating towards the right flank and up along the right lateral aspect of her back. Denies any associated chest pain or shortness of breath. Denies any nausea or vomiting. Currently the pain has resolved after she received morphine in the ER. No specific aggravating or relieving factor with the pain. Denies any trouble with chest pain when she goes upstairs at home but does report some shortness of breath with going up stairs. She is able to carry groceries into her house without having any symptoms. The patient has a previous history of coronary artery disease/OR as well as has a defibrillator in place. She also reports a previous history of a Bovine aortic valve replacement. The patient reports she has been on Coumadindose was recently adjusted to 2.5 mg daily after her INR was elevated on a previous check. Before that, she was taking 2.5 mg daily for 5 days and 5 mg on Saturday and Saturday. Home Medications Scheduled Ammonium Lactate (Lac-Hydrin Five) 226 Gm Lotion, 1 DOSE TOP DAILY, (Reported) APPLY TO AFFECTED AREA(S) Aspirin (Aspirin EC) 81 Mg Tablet.dr, 81 MG PO DAILY, (Reported) Carvedilol (Carvedilol) 12.5 Mg Tablet, 12.5 MG PO BID, (Reported) Escitalopram Oxalate (Lexapro) 20 Mg Tablet, 20 MG PO DAILY, (Reported) Fluticasone Propion/Salmeterol (Advair Hfa 115-21 Mcg Inhaler) 12 Gm Hfa.aer.ad, 2 PUFF INH BID, (Reported) Furosemide (Furosemide) 40 Mg Tablet, 40 MG PO DAILY, (Reported) Levocetirizine Dihydrochloride (Levocetirizine Dihydrochloride) 5 Mg Tablet, 5 MG PO QHS, (Reported) Metformin HCl (Metformin HCl ER) 500 Mg Tab, 2,000 MG PO QPM, (Reported) @ 1700 Montelukast Sodium (Montelukast Sodium) 10 Mg Tablet, 10 MG PO QHS, (Reported) [place]-3 Fatty Acids/Fish Oil (Fish Oil 1,000 mg Capsule) 1 Each Capsule, 1,000 MG PO DAILY, (Reported) Ranitidine Hcl (Ranitidine HCl) 150 Mg Tablet, 1 TAB PO BID, (Reported) Sacubitril/Valsartan (Entresto 24 mg-26 mg Tablet) 1 Each Tablet, 1 TAB PO BID, (Reported) Simvastatin (Simvastatin) 40 Mg Tablet, 40 MG PO QHS, (Reported) Warfarin Sodium (Coumadin) 2.5 Mg Tab, 2.5 MG PO QPM, (Reported) Scheduled PRN Albuterol Sulfate (Proair Hfa) 8.5 Gm Hfa.aer.ad, 2 PUFF INH Q4H PRN for SHORTNESS OF BREATH, (Reported) Clonazepam (Clonazepam) 0.5 Mg Tablet, 0.5 MG PO Q8H PRN for ANXIETY, (Reported) Fluticasone Propionate (Flonase Allergy Relief) 9.9 Ml [place].susp, 2 SPRAYS NA DAILY PRN for NASAL CONGESTION, (Reported) Allergies Coded Allergies: HAY FEVER (Verified Allergy, Unknown, 12/23/18) Past Medical History Medical History Diverticulitis, depression, anxiety, hyperlipidemia, seasonal allergies, previous pneumonia, hiatal hernia/GERD, myocardial infarction in 2008, stroke in 2019, cardiac arrest in 2008, hypertension, obstructive sleep apnea on CPAP, osteoarthritis, basal cell cancer, multinodular goiter, early stage dementia, kidney stones, metabolic syndrome X, diabetes mellitus type 2, paroxysmal atrial fibrillation, sick sinus syndrome status post cardioversion and pacemaker followed by defibrillator placement, systolic congestive heart failure Surgical History Hysterectomy, bovine aortic valve replacement, cardiac catheterization, excision of basal cell lesions on face, colonoscopy, diverticulosis, internal hemorrhoids, cardioversion/[employer] dual PPM at [facility], pacemaker with defibrillator in November 2017, EGD with esophagitis, gastritis, hiatal herniaDrAgusto Woody, colonoscopy with polyp resectiontubular adenoma Family History Father at 91 years from heart disease, mother at 96 years and had a cancer of 5 and dementia, Sr. had NPH as well as leaking of shunt and anxiety disorder, other sister has no known medical problems. Youngest daughter has melanoma. Social History * Smoker: Denies Alcohol: Denies Drugs: denies Review of Systems Other systems Negative for 10 systems except as noted under history of present illness Physical Examination General Exam: Positive: Alert, Cooperative, No Acute Distress Eye Exam: Positive: PERRLA ENT Exam: Positive: Atraumatic, Mucous membr. moist/pink Chest Exam: Positive: Clear to auscultation, Normal air movement Heart Exam: Positive: Rate Normal, Regular Rhythm, Other (loud S2) Abdomen Exam: Positive: Normal bowel sounds, Soft, Other (very slight tenderness in right upper quadrant, no guarding or rigidity, no right lower quadrant tenderness at this time.) Extremity Exam: Positive: Normal pulses, Other (no edema) Neuro Exam: Positive: Other (awake, alert, and into 3, answering questions appropriately and moving all 4 extremities.) Psych Exam: Positive: Mental status NL Vital Signs Vital Signs Date Time Temp Pulse Resp B/P (MAP) Pulse Ox O2 Delivery O2 Flow Rate FiO2 12/23/18 10:32 76 12/23/18 10:02 94 12/23/18 10:00 22 134/83 (100) Room Air 12/23/18 07:17 2.0 12/23/18 01:48 98.2 Laboratory Data Labs 24H Laboratory Tests 2 12/23/18 02:25: Immature Granulocyte % (Auto) 0.6, White Blood Count 8.5, Red Blood Count 4.17, Hemoglobin 11.8L, Hematocrit 37.4, Mean Corpuscular Volume 89.7, Mean Corpuscular Hemoglobin 28.3, Mean Corpuscular Hemoglobin Concent 31.6L, Red Cell Distribution Width 14.9H, Platelet Count 270, Neutrophils (%) (Auto) 82.7H, Lymphocytes (%) (Auto) 7.5L, Monocytes (%) (Auto) 7.4H, Eosinophils (%) (Auto) 1.6, Basophils (%) (Auto) 0.2, Neutrophils # (Auto) 7.1, Lymphocytes # (Auto) 0.6L, Monocytes # (Auto) 0.6, Eosinophils # (Auto) 0.1, Basophils # (Auto) 0.0, Nucleated Red Blood Cells % (auto) 0.0, Prothrombin Time 22.0H, Prothromb Time International Ratio 1.89, Anion Gap 7L, Glomerular Filtration Rate > 60.0, Blood Urea Nitrogen 26H, Creatinine 0.88, Sodium Level 143, Potassium Level 3.8, Chloride Level 110H, Carbon Dioxide Level 26, Calcium Level 9.1, Aspartate Amino Transf (AST/SGOT) 10, Alanine Aminotransferase (ALT/SGPT) 22, Total Creatine Kinase 55, Alkaline Phosphatase 93, Total Bilirubin 0.5, Direct Bilirubin 0.1, Total Protein 6.6, Albumin 3.6, Creatine Kinase MB 2.0, Creatine Kinase MB Relative Index 4.00, Troponin I 0.52H, Albumin/Globulin Ratio 1.20, Lipase 248 12/23/18 04:29: Total Creatine Kinase 54, Creatine Kinase MB 2.0, Creatine Kinase MB Relative Index 4.07H, Troponin I 0.51H 12/23/18 08:31: Total Creatine Kinase 44, Creatine Kinase MB 2.0, Creatine Kinase MB Relative Index 4.32H, Troponin I 0.44H CBC/BMP Laboratory Tests 12/23/18 02:25 Red Blood Count 4.17, Mean Corpuscular Volume 89.7, Mean Corpuscular Hemoglobin 28.3, Mean Corpuscular Hemoglobin Concent 31.6 L, Red Cell Distribution Width 14.9 H, Neutrophils (%) (Auto) 82.7 H, Lymphocytes (%) (Auto) 7.5 L, Monocytes (%) (Auto) 7.4 H, Eosinophils (%) (Auto) 1.6, Basophils (%) (Auto) 0.2, Neutrophils # (Auto) 7.1, Lymphocytes # (Auto) 0.6 L, Monocytes # (Auto) 0.6, Eosinophils # (Auto) 0.1, Basophils # (Auto) 0.0, Calcium Level 9.1, Aspartate Amino Transf (AST/SGOT) 10, Alanine Aminotransferase (ALT/SGPT) 22, Total Creatine Kinase 55, Alkaline Phosphatase 93, Total Bilirubin 0.5, Direct Bilirubin 0.1, Total Protein 6.6, Albumin 3.6 Assessment/Plan Abdominal pain: -Unclear etiology -Patient reports alternating diarrhea and constipationcurrently reports feeling constipated -Continue Colace, added MiraLAX -No obvious cholecystitis or obstructing stone noted on CT abdomen pelvis and ultrasound abdomen. LFTs/alkaline phosphatase/bilirubin are normal. Recheck in a.m. -Simethicone for gaseous bloating -Acetaminophen prn pain - will try to avoid opiates as these may contribute to constipation. Unable to use NSAIDs as patient is already on warfarin and aspirin. Elevated troponin with EKG changes: -Consulted cardiology -case discussed with Dr. Fabian who will assess the patient later today. -We will check serial troponins and serial EKGs -Patient denies any chest pain - does not seem to have acute coronary syndrome at this time -On appropriate cardiac medications including aspirin, statin, beta dada, and Entresto -On review of labs here, patient has had chronic troponin elevation of 0.4 as far back as 2011 -I will defer to cardiology as regards any need for additional testing Transient hypoxia -Resolved by the time of my exampatient was on room air. -CT chest could not rule out pulmonary embolism secondary to movement artifact -Patient is on warfarin and therefore PE seems less likely, nonetheless, we will obtain a VQ scan to rule out same -Continue warfarin Diabetes mellitus type 2 -Metformin on hold as patient received contrast with CT chestmay resume in 48 hours -Sliding-scale insulin -Carbohydrate controlled diet Chronic systolic congestive heart failure -Ct Lasix as well as Entresto Coronary artery disease status post previous OR -Continue aspirin, statin, carvedilol Paroxysmal atrial fibrillation -Ct carvedilol -INR slightly subtherapeuticwarfarin 5 mg tonight and then 2.5 mg daily starti ng tomorrow -Advised patient to call Coumadin nurse tomorrow on discharge for further monitoring as outpatient Hypertension -Continue carvedilol, and entresto Morbid obesity with a BMI of 37.1 Hyperlipidemia -Continue statin Anxiety/depression -Continue home regimen with Klonopin prn, lexapro GI/DVT prophylaxis; -On H2 dada/PPI/warfarin CODE STATUS -Full code per my discussion with the patient Disposition: Admitted as observation status to telemetry for further evaluation of abdominal pain, elevated troponin and EKG changes. Anticipated length of stay less than 2 midnights. Anticipate eventual discharge home tomorrow if medically stable. Plan / VTE VTE Prophylaxis Ordered?: Yes VTE Exclusion Mechanical Proph: Other VTE Exclusion Pharmacological: Other MYLA KELLY MD Dec 23, 2018 11:18
[2018-12-23] MEDS: FUROSEMIDE 40 MG TAB PO SCH (11:30)
[2018-12-23] MEDS ORDERED: SLF 3 ML SYR IV PRN (11:30)
[2018-12-23] MEDS: SIMETHICONE 80 MG CHEW TAB PO SCH ×3 (11:30→20:15)
[2018-12-23] MEDS: DOCUSATE SODIUM 100 MG CAP PO SCH ×2 (11:31→20:15)
[2018-12-23] MEDS: ESCITALOPRAM OXALATE 10 MG TAB (LEXAPRO) PO SCH (11:31)
[2018-12-23] MEDS: CARVedilol 12.5 MG TAB PO SCH ×2 (11:31→20:15)
[2018-12-23] MEDS: FAMOTIDINE 20 MG TAB PO SCH ×2 (11:31→20:14)
[2018-12-23] MEDS: HumaLOG INSULIN (NovoLOG) PER UNIT SC SCH ×2 (11:32→17:18)
[2018-12-23] MEDS: ENTRESTO 24-26MG TABLET (SACUBITRIL/VALSARTAN) PO SCH ×2 (11:32→20:14)
[2018-12-23] MEDS: ASPIRIN 81 MG ENTERIC TAB PO SCH (11:32)
[2018-12-23] MEDS: SLF 3 ML SYR IV SCH ×2 (11:32→20:15)
[2018-12-23] MEDS: MIRALAX *UNIT DOSE* 17GM PACKET PO SCH (11:46)
[2018-12-23 16:00] VITALS: BP 168/91
[2018-12-23] MEDS ORDERED: PROMETHAZINE 25 MG TAB PO PRN (16:45)
[2018-12-23] MEDS ORDERED: WARFARIN SOD 5 MG TAB PO ONE (17:00)
[2018-12-23 18:12] LABS: APPEARANCE, URINE HAZY (CLEAR); BACTERIA, URINE AUTO NEGATIVE (NEGATIVE); BILIRUBIN, URINE AUTO NEGATIVE (NEGATIVE); BLOOD, URINE BLOOD NEGATIVE (NEGATIVE); COLOR, URINE YELLOW (YELLOW); GLUCOSE, URINE (UA) AUTO NEGATIVE (NEGATIVE); KETONE, URINE AUTO NEGATIVE (NEGATIVE); LEUKOCYTE ESTERASE, URINE AUTO NEGATIVE (NEGATIVE); MUCUS, URINE SMALL (NEGATIVE); NITRITE, URINE AUTO NEGATIVE (NEGATIVE); PROTEIN, URINE AUTO NEGATIVE (NEGATIVE); RBC, URINE AUTO 0 /HPF (0-3); SPECIFIC GRAVITY URINE AUTO 1.026 (1.002-1.035); SQUAMOUS EPITHELIAL CELL UR AU 1 /HPF (0-6); UROBILINOGEN, URINE AUTO 0.2 mg/dL (0.0-2.0); WBC, URINE AUTO 3 /HPF (0-3)
[2018-12-23 20:00] VITALS: BP 136/81
[2018-12-23] MEDS ORDERED: SIMVASTATIN 40 MG TAB PO SCH (21:00)
[2018-12-23] MEDS ORDERED: MONTELUKAST 10 MG TAB PO SCH (21:00)
--- NOTE | 2018-12-23 21:29 | ECGEPIP ---
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
--- NOTE | 2018-12-23 21:32 | ECGEPIP ---
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
--- NOTE | 2018-12-23 22:56 | CR ---
DATE OF CONSULTATION: 12/23/2018 PRIMARY CARE PROVIDER: Adelia Juarez NP PRIMARY TRAVELING SALES REPRESENTATIVE: Dr. Hednerson from [facility] in [place], [place]. REFERRING PROVIDER: Dr. Camilo Grijalva REASON FOR THE CONSULT: Abnormal serum troponin. A 68-year-old woman with a history of cardiomyopathy that seemed to be severe at one point and had an automatic implantable cardioverter defibrillator (AICD) implanted recently by Dr. Donald in [place], [place] at [facility]. 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 She had the valve replaced again in 2007. At that time, she was diagnosed with a transient ischemic attack (TIA)/CVA. She has a history of hypertension, hyperlipidemia. She has been doing fairly well, stable from a cardiac point of view. She has been dealing with gastrointestinal (GI) symptoms with constipation and loose stools. Yesterday, during the night, she developed severe abdominal pain and because she was not getting better, she decided to come to the emergency room (ER) for further evaluation. Upon arrival, she was found to have elevated blood pressure and further workup revealed abnormal serum troponin. Cardiology consult was called. The case was discussed earlier today with the ER provider and hospitalist. When I saw her this evening, she was sitting in a chair in her room in the progressive care unit (PCU), in no acute distress at rest, and she has one of her sisters at bedside. She stated she feels better. She has not been having any abdominal pain since receiving morphine and got rested for 1-2 hours in bed. She denies any chest pain, and she never had any chest pain. She denies any palpitations. She does have underlying shortness of breath with activities, and she thinks this has been stable. She was recently seen by her energy rater in [place], [place], and she was cleared, and she was told to continue the same medications. She denies any bleeding. She has not been having any more coughing than usual. She has a history of heartburn. She has minimal swelling of the ankles, mainly in the left lower extremity. She has no active swelling or redness of the joints. She has a past medical history positive for valvular heart disease, congenital aortic valve disease for which she had had surgery twice, in her late 30s and also in 2007. She also had ascending aortic aneurysm, which was probably repaired but she could not elaborate on that. She has cardiomyopathy that presumably was severe at one point secondary to her underlying valvular heart disease and for which she has an AICD/permanent pacemaker implantation, hypertension, diabetes mellitus, paroxysmal atrial fibrillation, arthritis/osteoarthritis, obstructive sleep apnea for which she has been using a continuous positive airway pressure (CPAP) machine, TIA/CVA. She is not clear about any history of myocardial infarction and also she is not clear whether she has had coronary artery bypass graft (CABG) when she had her aortic valve replacement. She does have a history of hiatal hernia/gastroesophageal reflux disease (GERD), dementia, kidney stones, and today, she was found to have cholelithiasis but no cholecystitis. She denies any history of chronic obstructive pulmonary disease (COPD)/emphysema. She does have a history of pneumonia, anxiety/depression. According to the chart, she does have a history of cardiac arrest in 2008. Past surgical history is positive for aortic valve replacement twice, AICD/permanent pacemaker implantation, partial hysterectomy. She had a Medtronic-type pacemaker and prior colonoscopy revealed polyps that were removed and was positive for tubular adenoma. Prior gastroscopy revealed gastritis and hiatal hernia, as well as esophagitis. She also has underlying internal hemorrhoids and diverticulosis. She had skin lesion removed in the past from her face, and it was positive for basal cell carcinoma. MEDICATIONS AT HOME: Aspirin 81 mg by mouth daily, carvedilol 12.5 mg by mouth twice a day, escitalopram/Lexapro 20 mg by mouth daily, ammonium lactate, fluticasone/salmeterol 115-21 mcg two puffs twice a day, Lasix 40 mg by mouth daily, levocetirizine 5 mg by mouth daily nightly, metformin 2 grams by mouth daily, Singulair 10 mg by mouth daily nightly, fish oil, ranitidine 150 mg by mouth daily, Entresto 24-26 one tablet by mouth twice a day, simvastatin 40 mg by mouth nightly, Coumadin 2.5 mg by mouth daily. She is also on clonazepam as needed 0.5 mg for anxiety, Flonase nasal spray as needed, albuterol sulfate/ProAir two puffs every 4 hours as needed for shortness of breath. FAMILY HISTORY: Positive for heart disease - her father but he ; he was about 90 years old. She has a granddaughter who was born with an intracardiac shunt. She has a daughter with a history of melanoma. SOCIAL HISTORY: The patient is a former smoker, and she denies any ethyl alcohol (EtOH) abuse. She used to be a [employer]. ALLERGIES: HAY FEVER. ADVANCED DIRECTIVES: The patient is a FULL CODE. On physical examination, the patient is alert and oriented, in no acute distress at rest, and her most recent vital signs revealed a blood pressure of 136/81 with a pulse of 88, respirations 20, and her maximum temperature is 97.5 degrees Fahrenheit with an oxygen saturation of 93% on 2 liters nasal cannula. Upon arrival, blood pressure was reported to be 182/98. Examination of the head: Atraumatic. Neck is supple and no jugular venous distention (JVD) appreciated. The lungs did not reveal any wheezing or crackles. The heart examination revealed irregular heart sounds without gallops. The point of maximum impulse (PMI) is displaced inferiorly and laterally. There is a systolic murmur grade 2 to 3 over 6 over the precordium, louder at the base of the heart with some radiation to the neck. Abdomen is soft. Extremities revealed trace ankle edema, mainly noted on the left lower leg and left ankle. Neurologic examination grossly was negative for focal deficit. LABORATORY: BMP done today revealed a sodium of 143, potassium 3.8, chloride 110, CO2 of 26, BUN 26, creatinine 0.8, GFR more than 60, fasting glucose 151, calcium 9.1. Liver enzymes revealed a total bilirubin of 0.5, direct bilirubin 0.1, AST 10, ALT 22, alkaline phosphatase 93, and total protein 6.6, albumin 3.6. First set of cardiac enzymes was 0.52, second was 0.51, the third was 0.44, and the fourth one was 0.49. PT on admission was 22.0 with an INR of 1.89. CBC revealed a WBC of 8.5, hemoglobin 11.8, hematocrit 37.4, and platelets 270,000. Urinalysis was essentially normal. Chest x-ray on admission revealed cardiomegaly and this was reported as chronic. Sternotomy wires noted. Findings consistent with prior aortic valve replacement. That was considered to be unchanged when compared to 06/19/2017. There was increased interstitial markings. CT angio looking for pulmonary embolism done today revealed questionable linear intraluminal filling defect versus artifact, cardiomegaly, dilated ascending aorta with aortic valve prosthesis, diffuse ground-glass opacity with interstitial thickening versus pulmonary vascular congestion. Abdominal and pelvic CT revealed a large gallbladder with cholelithiasis but no cholecystitis. Distal colonic diverticulosis was noted and borderline hepatomegaly. Ultrasound of the gallbladder revealed cholelithiasis with prominent gallbladder. Electrocardiogram done earlier today at 2:15:47 in the morning revealed an irregular rhythm that may be underlying atrial fibrillation with intermittent pacing, ventricular pacing. Repeat EKG done also today at 2:15:55 revealed again intermittent pacing with an underlying irregular rhythm and this time isolated premature ventricular contractions (PVCs) noted. with pacing beats seems to be right-sided, patient probably has a biventricular pacemaker. Third EKG also done today at about 6:42:38 revealed mainly ventricular pacing activity and isolated PVCs. A fourth EKG done today at 8:28:29 also revealed ventricular pacemaker activity. now is normal, there was no pacing activity at that time in lead 1. Another EKG done this afternoon at about 14:10:06 did not reveal any significant changes. Intermittent pacing activity noted as well as isolated PVCs. CURRENT MEDICATIONS: Warfarin, simvastatin 40 mg by mouth nightly, Singulair 10 mg by mouth nightly, Phenergan 25 mg by mouth every 6 hours as needed for nausea, simethicone 80 mg by mouth four times a day, insulin Lispro as directed, Entresto 24-26 one tablet by mouth twice a day, Lasix 40 mg by mouth daily, Advair Diskus 115/21 two puffs twice a day, Lexapro 20 mg by mouth daily, carvedilol 12.5 mg by mouth twice a day, aspirin 81 mg by mouth daily, docusate sodium 100 mg by mouth twice a day, famotidine 20 mg by mouth twice a day, Flonase nasal spray as directed, clonazepam 0.5 mg every 8 hours as needed for anxiety, albuterol sulfate two puffs every 4 hours as needed for shortness of breath, MiraLAX one packet daily, and also on Glucagon as well as glucose tablets, D50. Also on Tylenol 650 mg by mouth every 6 hours for pain or fever. IMPRESSION: 1. Abnormal serum troponin, probably related to her underlying cardiomyopathy. She does have a history. At the present time, no need for any further cardiac evaluation but will have an echocardiogram to assess her left ventricular systolic function and also her underlying valvular heart disease. There is a question that the abnormal serum troponin may be related to underlying pulmonary embolism, but her CT angiogram was nondiagnostic for pulmonary embolism. She is planning to have a V/Q scan. It is really unlikely because she has been on Coumadin and also on aspirin. 2. Cardiomyopathy with history of left ventricular systolic dysfunction and while she is here, will reassess her left ventricular ejection fraction (LVEF) with an echocardiogram. Will try to get more information from her primary energy rater, Dr. Henderson in [place], [place], from [facility]. 3. History of paroxysmal atrial fibrillation, on Coumadin and will keep the INR between 2.0 and 3.0. 4. Hypertension: She will be monitored. Blood pressure now seems to be normal. 5. Diabetes mellitus, on metformin - currently on hold. 6. AICD/permanent pacemaker: Probably biventricular (BiV) AICD in view of the findings on the EKG, implanted for prevention of sudden cardiac . She has a Medtronic-type pacemaker, and this is being monitored in [place], [place]. It was a pleasure to participate in the care of Mrs. Binta Chapa for her underlying cardiac condition. I will continue to monitor along with you while in the hospital. She appears to be stable. Upon discharge, she will continue to follow with her energy rater in [place], [place]. Edited 12/23/2018 [facility]
[2018-12-23 23:47] VITALS: BP 116/62
[2018-12-24 04:00] VITALS: BP 102/60
[2018-12-24 05:41] LABS: HEMATOCRIT 34.7 % (36.0-47.0); HEMOGLOBIN 10.7 g/dl (12.0-15.5); MEAN CORPUSCULAR HEMOGLOBIN 28.2 pg (27.0-33.0); MEAN CORPUSCULAR HGB CONC 30.8 g/dl (32.0-36.5); MEAN CORPUSCULAR VOLUME 91.6 fl (80.0-96.0); PLATELET COUNT, AUTOMATED 205 10^3/uL (150-450); RED BLOOD COUNT 3.79 10^6/uL (4.00-5.40); WHITE BLOOD COUNT 6.7 10^3/uL (4.0-10.0)
[2018-12-24] MEDS: SLF 3 ML SYR IV SCH ×2 (05:45→09:39)
[2018-12-24 05:51] LABS: INR 2.35; PROTHROMBIN TIME 26.2 SECONDS (12.1-14.4)
[2018-12-24 06:06] LABS: ALBUMIN 3.2 GM/DL (3.2-5.2); ALT/SGPT 21 U/L (12-78); BILIRUBIN,TOTAL 0.6 MG/DL (0.2-1.0); BLOOD UREA NITROGEN 25 MG/DL (7-18); CALCIUM LEVEL 8.5 MG/DL (8.8-10.2); CARBON DIOXIDE LEVEL 27 MEQ/L (21-32); CHLORIDE LEVEL 109 MEQ/L (98-107); CREATININE FOR GFR 0.78 MG/DL (0.55-1.30); GLOMERULAR FILTRATION RATE > 60.0 (>39); GLUCOSE, FASTING 135 MG/DL (70-100); MAGNESIUM LEVEL 2.3 MG/DL (1.8-2.4); POTASSIUM SERUM 3.8 MEQ/L (3.5-5.1); SODIUM LEVEL 141 MEQ/L (136-145); TOTAL PROTEIN 6.5 GM/DL (6.4-8.2)
[2018-12-24] MEDS: ADVAIR HFA 115/21MCG INHALER INH SCH (07:16)
[2018-12-24 08:00] VITALS: BP 112/62
[2018-12-24] MEDS: FUROSEMIDE 40 MG TAB PO SCH (09:37)
[2018-12-24] MEDS: ENTRESTO 24-26MG TABLET (SACUBITRIL/VALSARTAN) PO SCH (09:37)
[2018-12-24 09:38] VITALS: BP 112/62
[2018-12-24] MEDS: FAMOTIDINE 20 MG TAB PO SCH (09:38)
[2018-12-24] MEDS: CARVedilol 12.5 MG TAB PO SCH (09:38)
[2018-12-24] MEDS: ESCITALOPRAM OXALATE 10 MG TAB (LEXAPRO) PO SCH (09:38)
[2018-12-24] MEDS: MIRALAX *UNIT DOSE* 17GM PACKET PO SCH (09:38)
[2018-12-24] MEDS: DOCUSATE SODIUM 100 MG CAP PO SCH (09:38)
[2018-12-24] MEDS: SIMETHICONE 80 MG CHEW TAB PO SCH ×2 (09:38→12:22)
[2018-12-24] MEDS: ASPIRIN 81 MG ENTERIC TAB PO SCH (09:38)
[2018-12-24] MEDS: HumaLOG INSULIN (NovoLOG) PER UNIT SC SCH ×2 (09:39→12:23)
--- NOTE | 2018-12-24 10:47 | REP ---
Ventilation-perfusion lung scan: History: Transient hypoxia. Abnormal CT chest. Evaluate for pulmonary embolus. Comparison chest CT study December 23, 2018. Technique: 1.0 mCi technetium 99m DTPA aerosol is administered for the ventilation study and is followed by a 5.4 mCi dose of technetium-99m MAA for the perfusion study. Findings: There is some central bronchial deposition of tracer on the ventilation study consistent with some degree of COPD. Perfusion exam shows evidence of cardiac enlargement. There is a matched ventilation perfusion defect posteriorly and superiorly in the left lower lobe. No other perfusion defect is seen. Impression: Low probability scan for pulmonary embolism. Electronically Signed by Eduardo Correa MD 12/24/2018 08:04 P
[2018-12-24] MEDS ORDERED: SLF 3 ML SYR IV PRN (11:30)
[2018-12-24 12:00] VITALS: BP 109/80
--- NOTE | 2018-12-24 13:41 | DS.PDOC ---
Discharge Summary General Date of Admission Dec 23, 2018 at 09:34 Date of Discharge 12/24/18 Attending Physician: MURIEL GUERRERO MD Specialist/Consultants Involve: RODERICK GRAY MD Discharge Summary PROCEDURES PERFORMED DURING STAY: [None]. ADMITTING DIAGNOSES: 1. Abdominal pain 2. Elevated troponin 3. Transient hypoxia 4. DM type 2 5. chronic HFrEF 6. CAD 7. Afib 8. HTN 9. HLD DISCHARGE DIAGNOSES: 1. Abdominal pain 2. Elevated troponin 3. Transient hypoxia 4. DM type 2 5. chronic HFrEF 6. CAD 7. Afib 8. HTN 9. HLD COMPLICATIONS/CHIEF COMPLAINT: Abd Pain Elevated Troponin. HISTORY OF PRESENT ILLNESS: "Patient is a 68-year-old female who presents to the hospital with complains of abdominal pain. She reports that initially her symptoms started a few days ago after she had food with hot sauce that caused some epigastric pain. She also reports having alternating diarrhea and constipation for the last few days. She also reports a sensation of bloating/gaseous distention. Reports last bowel movement was yesterday morning. Reports she has been trying some Colace at home to help with constipation. Last night, she reports she had pain around the right lower quadrant of her abdomen, 10 over 10 in intensity, burning in nature, radiating towards the right flank and up along the right lateral aspect of her back. Denies any associated chest pain or shortness of breath. Denies any nausea or vomiting. Currently the pain has resolved after she received morphine in the ER. No specific aggravating or relieving factor with the pain. Denies any trouble with chest pain when she goes upstairs at home but does report some shortness of breath with going up stairs. She is able to carry groceries into her house without having any symptoms. The patient has a previous history of coronary artery disease/MT as well as has a defibrillator in place. She also reports a previous history of a Bovine aortic valve replacement. The patient reports she has been on Coumadindose was recently adjusted to 2.5 mg daily after her INR was elevated on a previous check. Before that, she was taking 2.5 mg daily for 5 days and 5 mg on Saturday and Saturday." HOSPITAL COURSE: She is 68-year-old female with cardiomyopathy, HFrEF with AICD placed in [place], DM, HTN, Afib presented to the ER with complaints of several days of epigastric pain along with bloating and gaseous distention after having hot sauce. CT abdomen showed cholelithiasis but no evidence of cholecystitis. Troponin was done which was elevated but patient does have elevated troponin at baseline likely secondary to cardiomyopathy. Patient was evaluated by cardiology who also review patient's echo, which does don't severely reduced ejection fraction as expected. Patient denies any type of chest pain and even abdominal symptoms have resolved at this time. Patient reported feeling well and ready to go home. 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 CT angios was also done to rule out PE but was nonconclusive due to positioning. Follow-up VQ scan showed low probability for PE, also less likely as patient has been on warfarin and within therapeutic INR window. DISCHARGE MEDICATIONS: Please see below. ALLERGIES: Please see below. PHYSICAL EXAMINATION ON DISCHARGE: VITAL SIGNS: Please see below. General: No acute distress, Alert Eyes: Normal sclera, EOMI, FLOWER HENT: Atraumatic, neck supple, moist mucous membranes Cardiovascular: Normal rate, normal rhythm. No murmurs appreciated. Pulmonary: Clear to auscultation b/l, no wheezing GI: Soft, nontender, nondistended Skin: Warm and dry Neuro: CN grossly intact. No focal deficits. Strengths equal b/l. Psych: oriented x 3 LABORATORY DATA: Please see below. IMAGING: Chest x-ray on admission revealed cardiomegaly and this was reported as chronic. Sternotomy wires noted. Findings consistent with prior aortic valve replacement. That was considered to be unchanged when compared to 06/19/2017. There was increased interstitial markings. CT angio looking for pulmonary embolism done today revealed questionable linear intraluminal filling defect versus artifact, cardiomegaly, dilated ascending aorta with aortic valve prosthesis, diffuse ground-glass opacity with interstitial thickening versus pulmonary vascular congestion. Abdominal and pelvic CT revealed a large gallbladder with cholelithiasis but no cholecystitis. Distal colonic diverticulosis was noted and borderline hepatomegaly. Ultrasound of the gallbladder revealed cholelithiasis with prominent gallbladder. V/Q- Low PE probability ACTIVITY: [As tolerated]. DIET: Diabetic diet DISCHARGE PLAN: f/u with PCP and cardiology within 1 week. DISPOSITION: Home. ITEMS TO FOLLOWUP ON ON OUTPATIENT: 1. Final ECHO report. DISCHARGE CONDITION: [Stable]. TIME SPENT ON DISCHARGE: Greater than 30 minutes. Vital Signs/I&Os Vital Signs Date Time Temp Pulse Resp B/P (MAP) Pulse Ox O2 Delivery O2 Flow Rate FiO2 12/24/18 12:00 97.9 72 18 109/80 (90) 93 12/23/18 20:00 2.0 12/23/18 10:00 Room Air I&O- Last 24 Hours up to 6 AM 12/24/18 06:00 Intake Total 360 ml Output Total 650 ml Balance -290 ml Laboratory Data Labs 24H Laboratory Tests 2 12/23/18 13:51: Troponin I 0.49H 12/23/18 17:10: Bedside Glucose (Misc Panel) 194H 12/23/18 17:45: Urine Appearance HAZY, Urine Color YELLOW, Urine pH 6.0, Urine Specific [place] 1.026, Urine Protein NEGATIVE, Urine Glucose (UA) NEGATIVE, Urine Ketones NEGATIVE, Urine Urobilinogen 0.2, Urine Bilirubin NEGATIVE, Urine Leukocyte Esterase NEGATIVE, Urine Blood NEGATIVE, Urine Nitrite NEGATIVE, Urine WBC (Auto) 3, Urine RBC (Auto) 0, Urine Hyaline Casts (Auto) 0, Urine Bacteria (Auto) NEGATIVE, Urine Squamous Epithelial Cells 1, Urine Mucus (Auto) SMALL, Urine Sperm (Auto) 12/23/18 20:10: Troponin I 0.52H 12/23/18 20:32: Bedside Glucose (Misc Panel) 168H 12/24/18 05:28: Nucleated Red Blood Cells % (auto) 0.0, Prothrombin Time 26.2H, Prothromb Time International Ratio 2.35, Anion Gap 5L, Glomerular Filtration Rate > 60.0, Lactic Acid Level 0.9, Blood Urea Nitrogen 25H, Creatinine 0.78, Sodium Level 141, Potassium Level 3.8, Chloride Level 109H, Carbon Dioxide Level 27, Calcium Level 8.5L, Aspartate Amino Transf (AST/SGOT) 13, Alanine Aminotransferase (ALT/SGPT) 21, Alkaline Phosphatase 88, Total Bilirubin 0.6, Total Protein 6.5, Albumin 3.2, Magnesium Level 2.3, Albumin/Globulin Ratio 0.97L 12/24/18 12:16: Bedside Glucose (Misc Panel) 149H CBC/BMP Laboratory Tests 12/24/18 05:28 Red Blood Count 3.79 L, Mean Corpuscular Volume 91.6, Mean Corpuscular Hemoglobin 28.2, Mean Corpuscular Hemoglobin Concent 30.8 L, Red Cell Distrib ution Width 15.4 H, Calcium Level 8.5 L, Aspartate Amino Transf (AST/SGOT) 13, Alanine Aminotransferase (ALT/SGPT) 21, Alkaline Phosphatase 88, Total Bilirubin 0.6, Total Protein 6.5, Albumin 3.2 FSBS Laboratory Tests Test 12/23/18 17:10 12/23/18 20:32 12/24/18 12:16 Range/Units Bedside Glucose (Misc Panel) 194 168 149 83-110 MG/DL Discharge Medications Scheduled Ammonium Lactate (Lac-Hydrin Five) 226 Gm Lotion, 1 DOSE TOP DAILY, (Reported) APPLY TO AFFECTED AREA(S) Aspirin (Aspirin EC) 81 Mg Tablet.dr, 81 MG PO DAILY, (Reported) Carvedilol (Carvedilol) 12.5 Mg Tablet, 12.5 MG PO BID, (Reported) Escitalopram Oxalate (Lexapro) 20 Mg Tablet, 20 MG PO DAILY, (Reported) Fluticasone Propion/Salmeterol (Advair Hfa 115-21 Mcg Inhaler) 12 Gm Hfa.aer.ad, 2 PUFF INH BID, (Reported) Furosemide (Furosemide) 40 Mg Tablet, 40 MG PO DAILY, (Reported) Levocetirizine Dihydrochloride (Levocetirizine Dihydrochloride) 5 Mg Tablet, 5 MG PO QHS, (Reported) Metformin HCl (Metformin HCl ER) 500 Mg Tab, 2,000 MG PO QPM, (Reported) @ 1700 Montelukast Sodium (Montelukast Sodium) 10 Mg Tablet, 10 MG PO QHS, (Reported) [place]-3 Fatty Acids/Fish Oil (Fish Oil 1,000 mg Capsule) 1 Each Capsule, 1,000 MG PO DAILY, (Reported) Ranitidine Hcl (Ranitidine HCl) 150 Mg Tablet, 1 TAB PO BID, (Reported) Sacubitril/Valsartan (Entresto 24 mg-26 mg Tablet) 1 Each Tablet, 1 TAB PO BID, (Reported) Simvastatin (Simvastatin) 40 Mg Tablet, 40 MG PO QHS, (Reported) Warfarin Sodium (Coumadin) 2.5 Mg Tab, 2.5 MG PO QPM, (Reported) Scheduled PRN Albuterol Sulfate (Proair Hfa) 8.5 Gm Hfa.aer.ad, 2 PUFF INH Q4H PRN for SHORTNESS OF BREATH, (Reported) Clonazepam (Clonazepam) 0.5 Mg Tablet, 0.5 MG PO Q8H PRN for ANXIETY, (Reported) Fluticasone Propionate (Flonase Allergy Relief) 9.9 Ml Joseph.susp, 2 SPRAYS NA DAILY PRN for NASAL CONGESTION, (Reported) Allergies Coded Allergies: HAY FEVER (Verified Allergy, Unknown, 12/23/18) MURIEL GUERRERO MD Dec 24, 2018 13:41
[2018-12-24] MEDS ORDERED: SLF 3 ML SYR IV SCH (14:00)
--- NOTE | 2018-12-24 14:19 | ECHO ---
DATE OF STUDY: 12/24/2018 AGE: 68 ROOM NUMBER: [id number]. REASON FOR THE ECHOCARDIOGRAM: Cardiomyopathy, shortness of breath. 2D MEASUREMENTS: IVS: 1.2 cm LV: 6.3 cm LVPW: 1.2 cm LA: 4.7 cm Aorta: 2.9 cm DOPPLER MEASUREMENTS: Peak velocity across the aortic valve: 1.8 m/s Mitral E: 1.1 Mitral A: 0.2 Maximum tricuspid valve velocity: 2.9 m/s 2D COMMENTS: 1. Technically limited study due to poor acoustic window secondary to body habitus. 2. Borderline increased left ventricular wall thickness with mildly enlarged left ventricle and a severely depressed global left ventricular systolic function. There appears to be global diffuse hypokinesis. The estimated left ventricular systolic ejection fraction is 25% to 30%. 3. Mildly enlarged left atrium. The right atrium and the right ventricle also appear to be mildly enlarged. The right ventricular wall was not well visualized. 4. The atrial septum appeared to be normal without evidence of defect or shunt. 5. Normal aortic root. 6. No pericardial effusion seen. 7. Bioprosthetic valve noted in the aortic valve position. Leaflet excursion appeared to be normal. Mildly calcified mitral anulus with normal mitral valve leaflet function. Normal tricuspid valve and pulmonic valve. The proximal pulmonary artery branches were not visualized. 8. The inferior vena cava was mildly enlarged. Central venous pressure is appropriately elevated. DOPPLER: It detects mild mitral regurgitation, mild tricuspid regurgitation, and mild to moderate pulmonic regurgitation. The calculated pulmonary artery systolic pressure varied between 40-50 mmHg. Restrictive mitral inflow pattern was noted. IMPRESSION: 1. Severe global left ventricular systolic dysfunction with mild eccentric left ventricular hypertrophy. 2. Bioprosthetic aortic valve with normal function. There is no significant gradient across the bioprosthetic aortic valve. 3. Mildly enlarged left atrium with mild mitral regurgitation. 4. Mild tricuspid regurgitation with moderate pulmonary hypertension. The right heart chambers appear to be mildly enlarged in limited views. 5. The inferior vena cava was mildly enlarged. Central venous pressure mildly elevated. 6. Mild pulmonic regurgitation.
[2018-12-24] MEDS ORDERED: WARFARIN SOD 2.5 MG TAB PO SCH (17:00)
--- NOTE | 2018-12-25 15:45 | ECGEPIP ---
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 Electronically Signed On 12-25-2018 15:44:47 EDT by Jose Arce
--- NOTE | 2018-12-26 06:36 | ECGEPIP ---
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
== END 2018-12-24 16:45 | disposition home or self-care (01) ==
LOC: M ED 01:47 → M ED INP 09:34 → M PCU 10:49
PROVIDERS: ADMIT Internal Medicine; ATTEND Internal Medicine
DX: R10.31 Right lower quadrant pain (principal); R79.89 Other specified abnormal findings of blood chemistry; R09.02 Hypoxemia; E11.9 Type 2 diabetes mellitus without complications; I50.23 Acute on chronic systolic (congestive) heart failure; I25.10 Atherosclerotic heart disease of native coronary artery without angina pectoris; I48.91 Unspecified atrial fibrillation; I11.0 Hypertensive heart disease with heart failure; E78.5 Hyperlipidemia, unspecified; I25.2 Old myocardial infarction; Z95.810 Presence of automatic (implantable) cardiac defibrillator; Z95.2 Presence of prosthetic heart valve; Z79.01 Long term (current) use of anticoagulants; I42.9 Cardiomyopathy, unspecified; Z79.82 Long term (current) use of aspirin; Z79.899 Other long term (current) drug therapy
CPT/HCPCS: 36415; 71045; 71275; 74177; 76705; 78582; 80053; 81001; 82248; 82550; 82553; 83605; 83690; 83735; 84484; 85025; 85027; 85610; 93005; 93041; 93306; 94640; 94760; 96374; 96375; 96376; 99285; A9540; A9567; G0378; J2270; J2405; Q9967

== ENCOUNTER → 2019-02-10 | Outpatient (REF) | payer MEDICARE ==
[~2019-02-10] MED LIST changes: +ADVA115A INH; +ASPI81TA26 PO; +CARV12.5 PO; +CARV6.25 PO; +CLON0.5T8 PO; +ENTR1TAB PO; +FLON1SPR; +FLUT50SP21 NARES; +FURO40TA2 PO; +LAC-LOT2 TOP; +LEXA1TAB2 PO; +MONT10TA2 PO; +PROAAER10 INH; +RANI15TA PO; +SIMV40TA2 PO
[2019-02-10 11:42] LABS: ALBUMIN 3.7 GM/DL (3.2-5.2); ALT/SGPT 23 U/L (12-78); BILIRUBIN,TOTAL 0.4 MG/DL (0.2-1.0); BLOOD UREA NITROGEN 24 MG/DL (7-18); CALCIUM LEVEL 9.1 MG/DL (8.8-10.2); CARBON DIOXIDE LEVEL 26 MEQ/L (21-32); CHLORIDE LEVEL 108 MEQ/L (98-107); CREATININE FOR GFR 0.74 MG/DL (0.55-1.30); GLOMERULAR FILTRATION RATE > 60.0 (>39); GLUCOSE, FASTING 124 MG/DL (70-100); POTASSIUM SERUM 3.9 MEQ/L (3.5-5.1); SODIUM LEVEL 142 MEQ/L (136-145); TOTAL PROTEIN 6.6 GM/DL (6.4-8.2)
== END ==
LOC: M SFHCPLAZ 09:04
PROVIDERS: ATTEND Nurse Practitioner Family
DX: E11.9 Type 2 diabetes mellitus without complications (principal)

== ENCOUNTER → 2019-05-20 | Outpatient (REF) | payer MEDICARE ==
[~2019-05-20] MED LIST changes: +FLUT15.820 NARES; -FLUT50SP21 NARES; +METF-791 PO; -METF500T4 PO
== END ==
LOC: M SFHCPLAZ 17:35
PROVIDERS: ATTEND Nurse Practitioner Family
DX: R19.7 Diarrhea, unspecified (principal)

== ENCOUNTER → 2019-06-23 | Outpatient (REF) | payer MEDICARE ==
[2019-06-23 13:11] LABS: ALBUMIN 3.8 GM/DL (3.2-5.2); ALT/SGPT 16 U/L (12-78); BILIRUBIN,TOTAL 0.5 MG/DL (0.2-1.0); BLOOD UREA NITROGEN 22 MG/DL (7-18); CALCIUM LEVEL 9.2 MG/DL (8.8-10.2); CARBON DIOXIDE LEVEL 27 MEQ/L (21-32); CHLORIDE LEVEL 107 MEQ/L (98-107); CHOLESTEROL LEVEL 161 MG/DL (<200); GLOMERULAR FILTRATION RATE > 60.0 (>39); GLUCOSE, FASTING 134 MG/DL (70-100); HDL CHOLESTEROL 50 MG/DL (>40); LDL CHOLESTEROL 87 MG/DL (<100); NON-HDL-C 111 MG/DL; POTASSIUM SERUM 4.1 MEQ/L (3.5-5.1); SODIUM LEVEL 141 MEQ/L (136-145); TOTAL 25(OH) VITAMIN D 48.1 NG/ML (30.0-100.0); TOTAL PROTEIN 6.6 GM/DL (6.4-8.2); TRIGLYCERIDES LEVEL 122 MG/DL (<150)
[2019-06-23 13:29] LABS: MAU/CREAT RATIO 57.6 MCG/MG (0.0-30.0)
[2019-06-23 13:35] LABS: HEMOGLOBIN A1c 7.2 %
== END ==
LOC: M SFHCPLAZ 08:24
PROVIDERS: ATTEND Nurse Practitioner Family
DX: E11.9 Type 2 diabetes mellitus without complications (principal); E78.2 Mixed hyperlipidemia; E55.9 Vitamin D deficiency, unspecified; Z79.899 Other long term (current) drug therapy

== ENCOUNTER → 2019-08-21 | Outpatient (REF) | payer MEDICARE ==
[~2019-08-21] MED LIST changes: +CLON0.5T2 PO; -CLON0.5T8 PO; -SIMV40TA2 PO; +SIMV40TA20 PO; -VALS1TAB49 PO; +VALS40TA9 PO
== END ==
LOC: M LAB REF 12:43
PROVIDERS: ATTEND Internal Medicine Pulmonary Disease
DX: J45.20 Mild intermittent asthma, uncomplicated (principal)

== ENCOUNTER → 2019-08-21 | Outpatient (CLI) | payer MEDICARE ==
--- NOTE | 2019-08-21 12:46 | REPPI ---
REASON FOR EXAM: Chest pain. COMPARISON: Multiple, the latest 12/23/2018, portable exam. There is global cardiomegaly. There is a dual-chamber bipolar pacemaker device with AICD status quo. There is evidence of interstitial fibrosis with chronically increased interstitial markings essentially unchanged when the technical difficulties between the examinations are taken into consideration. There is a prosthetic aortic valve, status quo. No acute patchy parenchymal opacities or pleural effusions have developed. There is no change in the osseous structures. IMPRESSION: Global cardiomegaly and chronic changes as described above. There is no evidence of acute cardiopulmonary disease. Electronically Signed by Sena Duval DO 08/21/2019 02:43 P
== END ==
LOC: M PLAIMG 10:02
PROVIDERS: ATTEND Internal Medicine Pulmonary Disease
DX: J45.20 Mild intermittent asthma, uncomplicated (principal); I51.7 Cardiomegaly

== ENCOUNTER → 2019-09-22 | Outpatient (CLI) | payer MEDICARE ==
[2019-09-22 20:06] LABS: HEMOGLOBIN A1c 7.7 %
[2019-09-22 20:28] LABS: ALBUMIN 3.6 GM/DL (3.2-5.2); ALT/SGPT 18 U/L (12-78); BILIRUBIN,TOTAL 0.4 MG/DL (0.2-1.0); BLOOD UREA NITROGEN 19 MG/DL (7-18); CALCIUM LEVEL 8.8 MG/DL (8.8-10.2); CARBON DIOXIDE LEVEL 28 MEQ/L (21-32); CHLORIDE LEVEL 108 MEQ/L (98-107); CREATININE FOR GFR 0.94 MG/DL (0.55-1.30); FREE T4 0.83 NG/DL (0.76-1.46); GLOMERULAR FILTRATION RATE > 60.0 (>39); GLUCOSE, FASTING 147 MG/DL (70-100); POTASSIUM SERUM 3.7 MEQ/L (3.5-5.1); SODIUM LEVEL 143 MEQ/L (136-145); TOTAL PROTEIN 6.3 GM/DL (6.4-8.2)
== END ==
LOC: M PLALAB 13:23
PROVIDERS: ATTEND Nurse Practitioner Family
DX: E11.29 Type 2 diabetes mellitus with other diabetic kidney complication (principal); F41.1 Generalized anxiety disorder

== ENCOUNTER → 2019-09-25 | Outpatient (CLI) | payer MEDICARE ==
--- NOTE | 2019-09-25 15:55 | REPMRS ---
Patient History The patient states she had a clinical breast exam in 08/2019. Patient is postmenopausal and has history of skin cancer at age 38. Family history of prostate cancer at age 50 or over in brother. No Hormone Replacement Therapy Digital Woman Screen Mammo: September 25, 2019 - Exam #: [id number] Bilateral CC and MLO view(s) were taken. Technologist: Lashell Rutledge, Technologist Prior study comparison: August 20, 2018, bilateral digital woman screen mammo performed at [facility]. September 12, 2016, digital woman screen mammo performed at [facility]. May 25, 2015, digital woman screen mammo performed at [facility]. FINDINGS: There are scattered fibroglandular densities. There is a pacemaker power plant projecting over the left axilla on the MLO view. There has been no change in the appearance of the mammogram from the prior studies. There is a mild amount of scattered fibroglandular density which is fairly symmetric. There is no interval development of dominant mass, architectural distortion, or grouped microcalcification suggestive of malignancy. 3-D tomosynthesis shows no additional findings. Assessment: BI-RADS/ACR category 2 mammogram. Benign Findings. Recommendation Routine screening mammogram of both breasts in 1 year (for women over age 40). This patient's Lifetime Breast Cancer Risk is estimated at 3.6 %. This mammogram was interpreted with the aid of an FDA-approved computer-aided dectection system. Electronically Signed By: Reggie Correa MD 09/25/19 [id number]
== END ==
LOC: M WHC 10:09
PROVIDERS: ATTEND Nurse Practitioner Family
DX: Z12.31 Encounter for screening mammogram for malignant neoplasm of breast (principal); M81.0 Age-related osteoporosis without current pathological fracture

== ENCOUNTER 2019-09-29 12:56 | Emergency (ER) | payer MEDICARE ==
[~2019-09-29] VITALS: Ht 157.5 cm; Wt 96.8 kg
[2019-09-29 15:29] LABS: BASO % 0.3 % (0.0-1.0); EOS # 0.1 10^3/uL (0.0-0.5); EOS % 1.1 % (0.0-3.0); HEMATOCRIT 36.6 % (36.0-47.0); HEMOGLOBIN 11.7 g/dl (12.0-15.5); LYMPH # 0.6 10^3/uL (1.5-5.0); MEAN CORPUSCULAR HEMOGLOBIN 28.6 pg (27.0-33.0); MEAN CORPUSCULAR VOLUME 89.5 fl (80.0-96.0); MONO # 0.5 10^3/uL (0.0-0.8); MONO % 7.4 % (0.0-5.0); NEUTROPHILS # 5.8 10^3/uL (1.5-8.5); NEUTROPHILS % 82.8 % (36.0-66.0); PLATELET COUNT, AUTOMATED 265 10^3/uL (150-450); RED BLOOD COUNT 4.09 10^6/uL (4.00-5.40)
[2019-09-29 15:49] LABS: ALBUMIN 3.5 GM/DL (3.2-5.2); ALT/SGPT 18 U/L (12-78); BILIRUBIN,DIRECT 0.2 MG/DL (0.0-0.2); BILIRUBIN,TOTAL 0.7 MG/DL (0.2-1.0); BLOOD UREA NITROGEN 14 MG/DL (7-18); CALCIUM LEVEL 8.8 MG/DL (8.8-10.2); CARBON DIOXIDE LEVEL 27 MEQ/L (21-32); CHLORIDE LEVEL 107 MEQ/L (98-107); CREATININE FOR GFR 0.69 MG/DL (0.55-1.30); GLOMERULAR FILTRATION RATE > 60.0 (>39); GLUCOSE, FASTING 144 MG/DL (70-100); LIPASE 128 U/L (73-393); POTASSIUM SERUM 3.9 MEQ/L (3.5-5.1); SODIUM LEVEL 141 MEQ/L (136-145); TOTAL PROTEIN 6.6 GM/DL (6.4-8.2)
[2019-09-29] MEDS ORDERED: ISOVUE-370 76% 100ML VIAL (Q9967) As Ordered ONE (18:01)
--- NOTE | 2019-09-29 19:05 | REPVR ---
PROCEDURE INFORMATION: Exam: CT Abdomen And Pelvis With Contrast Exam date and time: 09/29/2019 5:44 PM Age: 69 years old Clinical indication: Other: Dark stool; Abdominal pain; Additional info: Lower abd pain/dark stool TECHNIQUE: Imaging protocol: Computed tomography of the abdomen and pelvis with intravenous contrast. Radiation optimization: All CT scans at this facility use at least one of these dose optimization techniques: automated exposure control; mA and/or kV adjustment per patient size (includes targeted exams where dose is matched to clinical indication); or iterative reconstruction. Contrast material: ISOVUE 370; Contrast volume: 100 ml; Contrast route: IV; COMPARISON: CT ABD/PEL W/IV CONTRAST ONLY 12/23/2018 3:14 AM FINDINGS: Lungs: Clear appearing lung bases. Heart: There is moderate cardiomegaly and no pericardial effusion. Mediastinum: Small hiatal hernia. Liver: There is moderate fatty infiltration of the liver. Gallbladder and bile ducts: There are 3 calcified gallstones in the neck of the gallbladder measuring 1 cm each. There are 2 stones measuring 2 mm each at the distal end of the common bile duct. There is no evidence of biliary dilatation. Pancreas: Normal pancreas. Spleen: Normal appearing spleen. Adrenals: Normal adrenal glands. Kidneys and ureters: There is enhancement of both kidneys. Small cyst lower pole the right kidney. Stomach and bowel: There are diverticula of the left colon and sigmoid colon with no evidence of diverticulitis. The cecum is in the right abdomen and there is no evidence of inflammation in the region of the cecum. Normal appearing small bowel. Appendix: Normal appearing appendix. Intraperitoneal space: There is no evidence of pneumoperitoneum. There is no evidence of free fluid in the abdomen or the pelvis. Vasculature: There is opacification of the aorta with a tubular calcification in the central portion of the lower abdominal aorta and unchanged from 2013. There is opacification of the SMA. Lymph nodes: There is no evidence of lymphadenopathy. Bladder: Normal urinary bladder. Normal urinary bladder. Reproductive: In the the patient is status post hysterectomy. Bones/joints: Unremarkable. No acute fracture. Soft tissues: At the right gluteal fold there is a fluid collection measuring 3.6 cm x 2.2 cm and possibly an abscess common new since December. IMPRESSION: 1. 3 large calcified gallstones at the neck of the gallbladder. Two small calcified gallstones at the distal end of the common bile duct. 2. Atherosclerotic change of the aorta. 3. No evidence of bowel obstruction. 4. Diverticula of the left colon. 5. Probable subcutaneous abscess 3.6 cm x 2.2 cm right gluteal fold. Electronically signed by: Hiram Lo On 09/29/2019 19:04:31 PM
[2019-09-29] MEDS ORDERED: LIDOCAINE 2% MDV 20 ML VIAL SC ONE (19:30)
[2019-09-29 20:30] VITALS: BP 122/80
--- NOTE | 2019-09-30 14:55 | ED PDOC ---
Post-Departure Follow-Up dr calix and haresh bean faxed formal report of ct abd/p for fu Saurabh Walker MD Sep 30, 2019 14:55
== END 2019-09-29 20:41 | disposition home or self-care (01) ==
LOC: M ED 12:56
DX: L05.01 Pilonidal cyst with abscess (principal); E11.9 Type 2 diabetes mellitus without complications; I10 Essential (primary) hypertension; I70.0 Atherosclerosis of aorta; J45.909 Unspecified asthma, uncomplicated; K21.9 Gastro-esophageal reflux disease without esophagitis; K57.30 Diverticulosis of large intestine without perforation or abscess without bleeding; K76.0 Fatty (change of) liver, not elsewhere classified; K80.20 Calculus of gallbladder without cholecystitis without obstruction; N28.1 Cyst of kidney, acquired; Z79.82 Long term (current) use of aspirin; Z79.51 Long term (current) use of inhaled steroids; Z79.01 Long term (current) use of anticoagulants; Z79.84 Long term (current) use of oral hypoglycemic drugs; Z79.2 Long term (current) use of antibiotics; Z86.73 Personal history of transient ischemic attack (TIA), and cerebral infarction without residual deficits
CPT/HCPCS: 10080; 36415; 74177; 80048; 80076; 81001; 83690; 85025; 87070; 87077; 87186; 99284; Q9967

== ENCOUNTER → 2019-12-24 | Outpatient (REF) | payer MEDICARE ==
[~2019-12-24] MED LIST changes: -MONT10TA2 PO; +MONT10TA4 PO
[2019-12-24 17:44] LABS: ALBUMIN 3.7 GM/DL (3.2-5.2); ALT/SGPT 26 U/L (12-78); BILIRUBIN,TOTAL 0.4 MG/DL (0.2-1.0); BLOOD UREA NITROGEN 34 MG/DL (7-18); CALCIUM LEVEL 9.9 MG/DL (8.8-10.2); CARBON DIOXIDE LEVEL 30 MEQ/L (21-32); CHLORIDE LEVEL 106 MEQ/L (98-107); CREATININE FOR GFR 0.74 MG/DL (0.55-1.30); GLOMERULAR FILTRATION RATE > 60.0 (>39); GLUCOSE, FASTING 162 MG/DL (70-100); POTASSIUM SERUM 3.7 MEQ/L (3.5-5.1); SODIUM LEVEL 141 MEQ/L (136-145); TOTAL PROTEIN 6.7 GM/DL (6.4-8.2)
[2019-12-24 18:00] LABS: HEMOGLOBIN A1c 7.2 %
[2019-12-24 18:12] LABS: CREATININE, URINE 79.4 MG/DL; MALB URINE SIEMENS 25.9 MG/L; MAU/CREAT RATIO 32.6 MCG/MG (0.0-30.0)
== END ==
LOC: M PLALAB 13:16
PROVIDERS: ATTEND Nurse Practitioner Family
DX: E11.29 Type 2 diabetes mellitus with other diabetic kidney complication (principal); R80.9 Proteinuria, unspecified; R06.02 Shortness of breath

== ENCOUNTER → 2019-12-24 | Outpatient (CLI) | payer MEDICARE ==
[2019-12-24 17:40] LABS: HEMATOCRIT 39.8 % (36.0-47.0); MEAN CORPUSCULAR HGB CONC 30.2 g/dl (32.0-36.5); MEAN CORPUSCULAR VOLUME 89.4 fl (80.0-96.0); PLATELET COUNT, AUTOMATED 279 10^3/uL (150-450); RED BLOOD COUNT 4.45 10^6/uL (4.00-5.40); WHITE BLOOD COUNT 5.6 10^3/uL (4.0-10.0)
[2019-12-24 17:55] LABS: BLOOD UREA NITROGEN 34 MG/DL (7-18); CALCIUM LEVEL 9.9 MG/DL (8.8-10.2); CARBON DIOXIDE LEVEL 30 MEQ/L (21-32); CHLORIDE LEVEL 105 MEQ/L (98-107); CREATININE FOR GFR 0.72 MG/DL (0.55-1.30); GLOMERULAR FILTRATION RATE > 60.0 (>39); GLUCOSE, FASTING 163 MG/DL (70-100); NT-PRO BNP 812 PG/ML (<125); POTASSIUM SERUM 3.7 MEQ/L (3.5-5.1); SODIUM LEVEL 139 MEQ/L (136-145)
== END ==
LOC: M PLALAB 13:10
PROVIDERS: ATTEND Internal Medicine Cardiovascular Disease
DX: R06.02 Shortness of breath (principal)

== ENCOUNTER → 2020-03-08 | Outpatient (REF) | payer MEDICARE ==
[~2020-03-08] MED LIST changes: -METF-791 PO; +METF-838 PO
[2020-03-08 13:33] LABS: ALBUMIN 3.6 GM/DL (3.2-5.2); ALT/SGPT 21 U/L (12-78); BILIRUBIN,TOTAL 0.5 MG/DL (0.2-1.0); BLOOD UREA NITROGEN 18 MG/DL (7-18); CALCIUM LEVEL 9.6 MG/DL (8.8-10.2); CARBON DIOXIDE LEVEL 30 MEQ/L (21-32); CHLORIDE LEVEL 107 MEQ/L (98-107); CREATININE FOR GFR 0.74 MG/DL (0.55-1.30); GLOMERULAR FILTRATION RATE > 60.0 (>39); GLUCOSE, FASTING 110 MG/DL (70-100); POTASSIUM SERUM 3.9 MEQ/L (3.5-5.1); SODIUM LEVEL 140 MEQ/L (136-145); TOTAL PROTEIN 6.6 GM/DL (6.4-8.2)
[2020-03-08 14:10] LABS: MALB URINE SIEMENS 25.8 MG/L; MAU/CREAT RATIO 11.9 MCG/MG (0.0-30.0)
[2020-03-08 15:37] LABS: HEMOGLOBIN A1c 7.3 %
== END ==
LOC: M PLALAB 10:21
PROVIDERS: ATTEND Nurse Practitioner Family
DX: E11.29 Type 2 diabetes mellitus with other diabetic kidney complication (principal)

== ENCOUNTER → 2020-06-14 | Outpatient (REF) | payer MEDICARE | LOC: M SFHCPLAZ 17:31 | PROVIDERS: ATTEND Nurse Practitioner Family | DX: R30.0 Dysuria (principal); Z23 Encounter for immunization | CPT/HCPCS: 81002; 87086; 90682; G0008; G0463 ==

== ENCOUNTER → 2020-06-21 | Outpatient (REF) | payer MEDICARE ==
[2020-06-21 15:33] LABS: HEMOGLOBIN A1c 6.4 %
[2020-06-21 15:47] LABS: ALBUMIN 3.8 GM/DL (3.2-5.2); ALT/SGPT 23 U/L (12-78); BILIRUBIN,TOTAL 0.5 MG/DL (0.2-1.0); BLOOD UREA NITROGEN 22 MG/DL (7-18); CALCIUM LEVEL 9.7 MG/DL (8.8-10.2); CARBON DIOXIDE LEVEL 29 MEQ/L (21-32); CHLORIDE LEVEL 108 MEQ/L (98-107); CHOLESTEROL LEVEL 182 MG/DL (<200); CHOLESTEROL RISK RATIO 2.983 (<5); CREATININE FOR GFR 0.72 MG/DL (0.55-1.30); GLOMERULAR FILTRATION RATE > 60.0 (>39); GLUCOSE, FASTING 103 MG/DL (70-100); HDL CHOLESTEROL 61 MG/DL (>40); LDL CHOLESTEROL 102 MG/DL (<100); NON-HDL-C 121 MG/DL; POTASSIUM SERUM 3.9 MEQ/L (3.5-5.1); SODIUM LEVEL 141 MEQ/L (136-145); TOTAL PROTEIN 6.7 GM/DL (6.4-8.2); TRIGLYCERIDES LEVEL 94 MG/DL (<150)
[2020-06-21 15:54] LABS: TOTAL 25(OH) VITAMIN D 69.6 NG/ML (30.0-100.0)
[2020-06-21 15:56] LABS: MALB URINE SIEMENS 44.7 MG/L; MAU/CREAT RATIO 17.5 MCG/MG (0.0-30.0)
== END ==
LOC: M PLALAB 12:18
PROVIDERS: ATTEND Nurse Practitioner Family
DX: E78.2 Mixed hyperlipidemia (principal); E11.9 Type 2 diabetes mellitus without complications; E55.9 Vitamin D deficiency, unspecified

== ENCOUNTER → 2020-07-27 | Outpatient (CLI) | payer MEDICARE ==
[~2020-07-27] MED LIST changes: +D31000TA2 PO; +OMEP1CAP73 PO; +TUMS500C PO; +XARE10TA PO
== END ==
LOC: M LABSMTC 11:33
PROVIDERS: ATTEND Anesthesiology
DX: Z01.812 Encounter for preprocedural laboratory examination (principal); Z20.828 Contact with and (suspected) exposure to other viral communicable diseases
CPT/HCPCS: 99490; U0003

== ENCOUNTER 2020-08-01 06:09 | Day surgery (SDC) | payer MEDICARE ==
[~2020-08-01] VITALS: Ht 162.6 cm; Wt 84.1 kg
[~2020-08-01 06:09] MED LIST changes: +LIDOCAINE 1% MDV 20ML VIAL SQ PRN; +LR 1,000 ML IV ONE; +ceFAZolin SOD 2 GM in IV 1 EA IV ONE
[2020-08-01] MEDS ORDERED: LIDOCAINE 2% 100MG/5ML SDV (FOR ANES.) As Ordered ONE (07:21)
[2020-08-01] MEDS ORDERED: propofoL 200 MG/20 ML VIAL As Ordered ONE (07:21)
[2020-08-01] MEDS ORDERED: ONDANSETRON 4MG/2ML VIAL As Ordered ONE (07:21)
[2020-08-01] MEDS ORDERED: fentaNYL 100 MCG/2 ML INJECTION (J3010) As Ordered ONE (07:22)
[2020-08-01] MEDS ORDERED: MIDAZOLAM INJ 2MG/2ML VIAL (J2250 PER 1MG) As Ordered ONE (07:22)
[2020-08-01] MEDS ORDERED: ROCURONIUM BROMIDE 50 MG/5 ML VIAL As Ordered ONE (07:33)
[2020-08-01] MEDS ORDERED: ePHEDrine SULFATE 25 MG/5 ML(5MG/ML) SYRINGE As Ordered ONE ×2 (08:05→08:22)
[2020-08-01] MEDS ORDERED: SUGAMMADEX SODIUM 500 MG/5 ML VIAL (BRIDION) As Ordered ONE (08:21)
[2020-08-01] MEDS ORDERED: PHENYLephrine HCL 500 MCG/5 ML (100MCG/ML) SYRINGE (J2370) As Ordered ONE (08:21)
[2020-08-01] MEDS ORDERED: LACRILUBE (AKWA TEARS) OPHTH OINT 3.5 GM As Ordered ONE (08:33)
[2020-08-01] MEDS ORDERED: NORCO, ANEXSIA 5/325MG TABLET (HYDROcodone/ACETAMINOPHEN) PO PRN (09:00)
[2020-08-01] MEDS ORDERED: ONDANSETRON 4MG/2ML VIAL IV PRN (09:00)
[2020-08-01] MEDS ORDERED: oxyCODONE 5MG TAB PO PRN (09:00)
[2020-08-01] MEDS ORDERED: fentaNYL 100 MCG/2 ML INJECTION (J3010) IV PRN (09:00)
[2020-08-01] MEDS ORDERED: LR 1,000 ML IV SCH (09:00)
[2020-08-01 09:58] VITALS: BP 112/66
--- NOTE | 2020-08-02 07:11 | RO ---
DATE OF OPERATION: 08/01/2020 PREOPERATIVE DIAGNOSIS: Pilonidal cyst. POSTOPERATIVE DIAGNOSIS: Pilonidal cyst. PROCEDURE: Pilonidal cystectomy. SURGEON: Wood Barfield DO BLIND HANGER: None. ANESTHESIA: General. ESTIMATED BLOOD LOSS: 5 mL. COMPLICATIONS: None. INDICATIONS FOR PROCEDURE: The patient is a 70-year-old female with history of pilonidal cyst. The recommendation was to proceed with excision in the operating room. Risks and benefits of the procedure, not limited to, but including bleeding, infection, damage to surrounding structures, and need for further surgery were discussed in detail with the patient. Informed consent was obtained and the procedure was planned. DESCRIPTION OF PROCEDURE: The patient was brought back to operating room #2. After successful sedation, she was placed in the prone position. The presacral area was sterilely prepped and draped with Betadine. Next, a time-out was done to confirm the proper patient and proper procedure. Following that, an elliptical incision was made with a 15-blade scalpel. The incision was carried down through the subcutaneous tissues around the two sinus tract openings in the midline. The cyst then appeared to track laterally to the right side and inferiorly. I was able to dissect all around that area as well and removed the entire thing as one specimen. Once the specimen was removed, cautery was used to control hemostasis. The wound was then packed with 4x4 gauze and covered with tape, thus ending the procedure. The patient tolerated the procedure well and was sent to the recovery room in stable condition. JAQUELIN
== END 2020-08-01 10:40 | disposition home or self-care (01) ==
LOC: M SDC 06:09
PROVIDERS: ATTEND Surgery
DX: L05.91 Pilonidal cyst without abscess (principal); I11.0 Hypertensive heart disease with heart failure; I25.10 Atherosclerotic heart disease of native coronary artery without angina pectoris; I25.2 Old myocardial infarction; I50.9 Heart failure, unspecified; E78.00 Pure hypercholesterolemia, unspecified; F32.9 Major depressive disorder, single episode, unspecified; K21.9 Gastro-esophageal reflux disease without esophagitis; K57.32 Diverticulitis of large intestine without perforation or abscess without bleeding; R73.03 Prediabetes; F41.9 Anxiety disorder, unspecified; G47.33 Obstructive sleep apnea (adult) (pediatric); J45.909 Unspecified asthma, uncomplicated; R06.83 Snoring; Z79.84 Long term (current) use of oral hypoglycemic drugs; Z79.899 Other long term (current) drug therapy; Z86.73 Personal history of transient ischemic attack (TIA), and cerebral infarction without residual deficits; Z95.810 Presence of automatic (implantable) cardiac defibrillator; Z95.3 Presence of xenogenic heart valve
CPT/HCPCS: 11770; 88304; J0690; J2250; J2405; J3010

== ENCOUNTER → 2020-09-26 | Outpatient (CLI) | payer MEDICARE ==
[~2020-09-26] MED LIST changes: -LIDOCAINE 1% MDV 20ML VIAL SQ PRN; -LR 1,000 ML IV ONE; +MONT10TA10 PO; -MONT10TA4 PO; -ceFAZolin SOD 2 GM in IV 1 EA IV ONE
--- NOTE | 2020-09-26 12:04 | REPMRS ---
Patient History The patient states she has not had a clinical breast exam in over a year. Family history of prostate cancer at age 50 or over in brother. No Hormone Replacement Therapy 3D TOMOSYNTHESIS WAS PERFORMED. [facility] lifetime risk for breast cancer is 3.3%. Volpara breast density b. Digital Woman Screen Mammo: September 26, 2020 - Exam #: [id number] Bilateral CC and MLO view(s) were taken. Technologist: Karley Márquez, Technologist Prior study comparison: September 25, 2019, bilateral digital woman screen mammo performed at [facility]. August 20, 2018, bilateral digital woman screen mammo performed at [facility]. FINDINGS: There are scattered fibroglandular densities. There has been no change in the appearance of the mammogram from the prior studies. There is a mild amount of residual fibroglandular tissue which is fairly symmetric. There is no interval development of dominant mass, architectural distortion, or clustered microcalcification suggestive of malignancy. Assessment: BI-RADS/ACR category 1 mammogram. Negative Mammogram. Recommendation Routine screening mammogram in 1 year (for women over age 40). This mammogram was interpreted with the aid of an FDA-approved computer-aided dectection system. Electronically Signed By: Wood Kwong MD 09/26/20 [id number]
== END ==
LOC: M WHC 11:20
PROVIDERS: ATTEND Nurse Practitioner Family
DX: Z12.31 Encounter for screening mammogram for malignant neoplasm of breast (principal)

== ENCOUNTER → 2020-11-23 | Outpatient (CLI) | payer MEDICARE ==
--- NOTE | 2020-11-23 10:35 | REPPI ---
INDICATION: R06.02 SHORTNESS OF BREATH COMPARISON: 08/21/2019 TECHNIQUE: PA and lateral. FINDINGS: Mediastinum again demonstrates sternotomy, aortic valve repair, pacemaker and cardiomegaly. The lung kincaid demonstrate changes related to chronic pulmonary vascular congestion along with linear atelectasis in the bilateral mid lung zones. There is increased atelectasis in the left lower lobe along with a small pleural effusion. No pneumothorax. IMPRESSION: Cardiomegaly and findings consistent with acute on chronic pulmonary vascular congestion including atelectasis and small left pleural effusion. <Electronically signed by Max Steele > 11/23/20 [id number]
[2020-11-23 13:43] LABS: BLOOD UREA NITROGEN 34 MG/DL (7-18); CALCIUM LEVEL 9.8 MG/DL (8.8-10.2); CARBON DIOXIDE LEVEL 26 MEQ/L (21-32); CHLORIDE LEVEL 108 MEQ/L (98-107); CREATININE FOR GFR 0.78 MG/DL (0.55-1.30); GLOMERULAR FILTRATION RATE > 60.0 (>39); GLUCOSE, FASTING 169 MG/DL (70-100); NT-PRO BNP 5366 PG/ML (<125); POTASSIUM SERUM 3.4 MEQ/L (3.5-5.1); SODIUM LEVEL 141 MEQ/L (136-145)
== END ==
LOC: M PLAIMG 10:05
PROVIDERS: ATTEND Internal Medicine Cardiovascular Disease
DX: J98.11 Atelectasis (principal); J90 Pleural effusion, not elsewhere classified; I51.7 Cardiomegaly; R06.02 Shortness of breath; Z95.0 Presence of cardiac pacemaker
CPT/HCPCS: 36415; 71046; 80048; 83880; 93005; G0463

== ENCOUNTER → 2020-11-25 | Outpatient (REF) | payer MEDICARE ==
[2020-11-25 15:49] LABS: ALBUMIN 3.6 GM/DL (3.2-5.2); BLOOD UREA NITROGEN 20 MG/DL (7-18); CALCIUM LEVEL 8.8 MG/DL (8.8-10.2); CARBON DIOXIDE LEVEL 28 MEQ/L (21-32); CHLORIDE LEVEL 109 MEQ/L (98-107); CREATININE FOR GFR 0.68 MG/DL (0.55-1.30); GLOMERULAR FILTRATION RATE > 60.0 (>39); GLUCOSE, FASTING 138 MG/DL (70-100); POTASSIUM SERUM 3.2 MEQ/L (3.5-5.1); SODIUM LEVEL 144 MEQ/L (136-145)
== END ==
LOC: M SFHCPLAZ 14:55
PROVIDERS: ATTEND Physician Assistant
DX: I50.23 Acute on chronic systolic (congestive) heart failure (principal)

== ENCOUNTER → 2020-12-13 | Outpatient (REF) | payer MEDICARE ==
[2020-12-13 15:18] LABS: BLOOD UREA NITROGEN 31 MG/DL (7-18); CALCIUM LEVEL 10.3 MG/DL (8.8-10.2); CARBON DIOXIDE LEVEL 31 MEQ/L (21-32); CHLORIDE LEVEL 110 MEQ/L (98-107); CREATININE FOR GFR 0.65 MG/DL (0.55-1.30); GLOMERULAR FILTRATION RATE > 60.0 (>39); GLUCOSE, FASTING 148 MG/DL (70-100); MAGNESIUM LEVEL 1.7 MG/DL (1.8-2.4); POTASSIUM SERUM 3.5 MEQ/L (3.5-5.1); SODIUM LEVEL 144 MEQ/L (136-145)
== END ==
LOC: M PLALAB 13:46
DX: I42.0 Dilated cardiomyopathy (principal); I50.22 Chronic systolic (congestive) heart failure; I48.21 Permanent atrial fibrillation; I38 Endocarditis, valve unspecified; R06.02 Shortness of breath

== ENCOUNTER → 2021-01-25 | Outpatient (CLI) | payer MEDICARE ==
[2021-01-25 10:55] LABS: ALBUMIN 3.6 GM/DL (3.2-5.2); ALT/SGPT 30 U/L (12-78); BILIRUBIN,TOTAL 0.4 MG/DL (0.2-1.0); BLOOD UREA NITROGEN 24 MG/DL (7-18); CALCIUM LEVEL 9.4 MG/DL (8.8-10.2); CARBON DIOXIDE LEVEL 30 MEQ/L (21-32); CHLORIDE LEVEL 107 MEQ/L (98-107); CREATININE FOR GFR 0.75 MG/DL (0.55-1.30); GLOMERULAR FILTRATION RATE > 60.0 (>39); GLUCOSE, FASTING 97 MG/DL (70-100); POTASSIUM SERUM 3.2 MEQ/L (3.5-5.1); SODIUM LEVEL 143 MEQ/L (136-145); TOTAL PROTEIN 6.2 GM/DL (6.4-8.2)
[2021-01-25 11:02] LABS: TOTAL 25(OH) VITAMIN D 71.7 NG/ML (30.0-100.0)
[2021-01-25 11:26] LABS: HEMOGLOBIN A1c 6.6 %
== END ==
LOC: M PLALAB 08:31
PROVIDERS: ATTEND Nurse Practitioner Family
DX: E55.9 Vitamin D deficiency, unspecified (principal); E11.9 Type 2 diabetes mellitus without complications

== ENCOUNTER → 2021-02-02 | Outpatient (REF) | payer MEDICARE ==
[2021-02-02 14:18] LABS: BLOOD UREA NITROGEN 21 MG/DL (7-18); CARBON DIOXIDE LEVEL 30 MEQ/L (21-32); CHLORIDE LEVEL 106 MEQ/L (98-107); CREATININE FOR GFR 0.69 MG/DL (0.55-1.30); GLOMERULAR FILTRATION RATE > 60.0 (>39); GLUCOSE, FASTING 115 MG/DL (70-100); MAGNESIUM LEVEL 1.7 MG/DL (1.8-2.4); POTASSIUM SERUM 3.7 MEQ/L (3.5-5.1); SODIUM LEVEL 141 MEQ/L (136-145)
== END ==
LOC: M PLALAB 12:53
DX: E87.6 Hypokalemia (principal); E83.42 Hypomagnesemia

== ENCOUNTER → 2021-04-04 | Outpatient (REF) | payer MEDICARE | LOC: M SFHCPLAZ 18:00 | PROVIDERS: ATTEND Physician Assistant | DX: J40 Bronchitis, not specified as acute or chronic (principal) | CPT/HCPCS: 87426; U0003 ==

== ENCOUNTER → 2021-04-27 | Outpatient (CLI) | payer MEDICARE ==
[2021-04-27 12:13] LABS: BLOOD UREA NITROGEN 27 MG/DL (7-18); CALCIUM LEVEL 9.1 MG/DL (8.8-10.2); CARBON DIOXIDE LEVEL 29 MEQ/L (21-32); CHLORIDE LEVEL 106 MEQ/L (98-107); GLOMERULAR FILTRATION RATE > 60.0 (>39); GLUCOSE, FASTING 121 MG/DL (70-100); POTASSIUM SERUM 3.6 MEQ/L (3.5-5.1); SODIUM LEVEL 141 MEQ/L (136-145)
[2021-04-27 12:51] LABS: HEMOGLOBIN A1c 6.6 %
== END ==
LOC: M PLALAB 07:50
PROVIDERS: ATTEND Nurse Practitioner Family
DX: E11.9 Type 2 diabetes mellitus without complications (principal)

== ENCOUNTER → 2021-05-08 | Outpatient (CLI) | payer MEDICARE ==
[2021-05-08 15:03] LABS: BLOOD UREA NITROGEN 19 MG/DL (7-18); CALCIUM LEVEL 9.3 MG/DL (8.8-10.2); CARBON DIOXIDE LEVEL 26 MEQ/L (21-32); CHLORIDE LEVEL 109 MEQ/L (98-107); GLOMERULAR FILTRATION RATE > 60.0 (>39); GLUCOSE, FASTING 115 MG/DL (70-100); NT-PRO BNP 2500 PG/ML (<125); SODIUM LEVEL 141 MEQ/L (136-145)
== END ==
LOC: M PLALAB 10:08
PROVIDERS: ATTEND Internal Medicine Cardiovascular Disease
DX: I42.0 Dilated cardiomyopathy (principal); I50.22 Chronic systolic (congestive) heart failure

== ENCOUNTER → 2021-06-28 | Outpatient (CLI) | payer MEDICARE ==
[2021-06-28 10:24] LABS: BASO % 0.7 % (0.0-1.0); EOS # 0.1 10^3/uL (0.0-0.5); EOS % 1.7 % (0.0-3.0); HEMATOCRIT 31.4 % (36.0-47.0); HEMOGLOBIN 9.4 g/dl (12.0-15.5); LYMPH # 0.5 10^3/uL (1.5-5.0); LYMPH % 11.3 % (24.0-44.0); MEAN CORPUSCULAR HEMOGLOBIN 25.2 pg (27.0-33.0); MEAN CORPUSCULAR HGB CONC 29.9 g/dl (32.0-36.5); MEAN CORPUSCULAR VOLUME 84.2 fl (80.0-96.0); MONO # 0.4 10^3/uL (0.0-0.8); MONO % 8.9 % (2.0-8.0); NEUTROPHILS # 3.2 10^3/uL (1.5-8.5); NEUTROPHILS % 77.2 % (36.0-66.0); PLATELET COUNT, AUTOMATED 225 10^3/uL (150-450); RED BLOOD COUNT 3.73 10^6/uL (4.00-5.40); WHITE BLOOD COUNT 4.2 10^3/uL (4.0-10.0)
[2021-06-28 11:02] LABS: BLOOD UREA NITROGEN 20 MG/DL (7-18); CREATININE FOR GFR 0.82 MG/DL (0.55-1.30); GLUCOSE, FASTING 118 MG/DL (70-100)
[2021-06-28 11:03] LABS: ALBUMIN 3.4 GM/DL (3.2-5.2); ALT/SGPT 34 U/L (12-78); BILIRUBIN,TOTAL 0.4 MG/DL (0.2-1.0); CALCIUM LEVEL 9.5 MG/DL (8.8-10.2); CARBON DIOXIDE LEVEL 29 MEQ/L (21-32); CHLORIDE LEVEL 108 MEQ/L (98-107); CHOLESTEROL LEVEL 154 MG/DL (<200); CHOLESTEROL RISK RATIO 2.655 (<5); FERRITIN 11 NG/ML (8-252); FREE T4 0.96 NG/DL (0.76-1.46); GLOMERULAR FILTRATION RATE > 60.0 (>39); HDL CHOLESTEROL 58 MG/DL (>40); IRON (FE) 36 UG/DL (50-170); LDL CHOLESTEROL 81 MG/DL (<100); NON-HDL-C 96 MG/DL; PERCENT SATURATION 9.4 % (13.2-45.0); POTASSIUM SERUM 3.9 MEQ/L (3.5-5.1); SODIUM LEVEL 141 MEQ/L (136-145); TOTAL 25(OH) VITAMIN D 80.7 NG/ML (30.0-100.0); TOTAL IRON BINDING CAPACITY 384 UG/DL (250-450); TOTAL PROTEIN 6.1 GM/DL (6.4-8.2); TRIGLYCERIDES LEVEL 76 MG/DL (<150)
[2021-06-28 11:40] LABS: HEMOGLOBIN A1c 6.1 %
[2021-06-28 12:14] LABS: MAU/CREAT RATIO 73.9 MCG/MG (0.0-30.0)
== END ==
LOC: M PLALAB 08:16
PROVIDERS: ATTEND Nurse Practitioner Family
DX: L65.9 Nonscarring hair loss, unspecified (principal); E78.00 Pure hypercholesterolemia, unspecified

== ENCOUNTER → 2021-07-27 | Outpatient (CLI) | payer MEDICARE ==
[2021-07-27 14:27] LABS: BLOOD UREA NITROGEN 26 MG/DL (7-18); CALCIUM LEVEL 10.1 MG/DL (8.8-10.2); CARBON DIOXIDE LEVEL 28 MEQ/L (21-32); CHLORIDE LEVEL 110 MEQ/L (98-107); CREATININE FOR GFR 0.78 MG/DL (0.55-1.30); GLOMERULAR FILTRATION RATE > 60.0 (>39); GLUCOSE, FASTING 102 MG/DL (70-100); POTASSIUM SERUM 4.4 MEQ/L (3.5-5.1); SODIUM LEVEL 144 MEQ/L (136-145)
== END ==
LOC: M PLALAB 10:58
PROVIDERS: ATTEND Internal Medicine Cardiovascular Disease
DX: I10 Essential (primary) hypertension (principal)

== ENCOUNTER → 2021-08-02 | Outpatient (CLI) | payer MEDICARE ==
--- NOTE | 2021-08-02 12:35 | REP ---
INDICATION: PAIN IN RIGHT KNEE COMPARISON: None. TECHNIQUE: AP, lateral, bilateral oblique and sunrise views. FINDINGS: Anterolateral soft tissue swelling is noted. There is no evidence for acute fracture or dislocation. And no obvious effusion. Moderate tricompartmental degenerative changes are appreciated including elements of joint space narrowing along with chondrocalcinosis and subtle cortical spurring. IMPRESSION: Soft tissue swelling. No acute fracture/dislocation or effusion identified. <Electronically signed by Max Steele > 08/02/21 [id number]
== END ==
LOC: M PLAIMG 11:50
PROVIDERS: ATTEND Physician Assistant
DX: M17.11 Unilateral primary osteoarthritis, right knee (principal); M25.461 Effusion, right knee; M25.561 Pain in right knee
CPT/HCPCS: 73564; G0463

== ENCOUNTER → 2021-08-18 | Outpatient (REF) | payer MEDICARE ==
[~2021-08-18] MED LIST changes: -MONT10TA10 PO; +MONT10TA97 PO
== END ==
LOC: M SFHCPLAZ 19:08
PROVIDERS: ATTEND Nurse Practitioner Adult Health
DX: D50.9 Iron deficiency anemia, unspecified (principal)

== ENCOUNTER → 2021-09-13 | Outpatient (REF) | payer MEDICARE ==
[~2021-09-13] MED LIST changes: +MONT10TA10 PO; -MONT10TA97 PO
== END ==
LOC: M LAB REF 15:13
PROVIDERS: ATTEND Nurse Practitioner Family
DX: K92.9 Disease of digestive system, unspecified (principal)

== ENCOUNTER 2021-10-03 12:35 | Outpatient (CLI) | payer MEDICARE ==
[~2021-10-03] VITALS: Ht 160 cm; Wt 80.0 kg
[~2021-10-03 12:35] MED LIST changes: +IRON SUCROSE 25 MG in NS 25 ML IV ONE; +IRON SUCROSE 475 MG in NS 250 ML IV ONE; -MONT10TA10 PO; +MONT10TA97 PO
[2021-10-03 12:55] VITALS: BP 110/63
[2021-10-03 13:52] VITALS: BP 91/55
[2021-10-03 14:18] VITALS: BP 102/65
[2021-10-03 16:40] VITALS: BP 125/76
== END 2021-10-03 16:45 | disposition home or self-care (01) ==
LOC: M INFU 12:35
PROVIDERS: ATTEND Nurse Practitioner Adult Health
DX: D50.9 Iron deficiency anemia, unspecified (principal)
CPT/HCPCS: 96365; 96366; J1756

== ENCOUNTER → 2021-10-06 | Outpatient (REF) | payer MEDICARE ==
[~2021-10-06] MED LIST changes: -IRON SUCROSE 25 MG in NS 25 ML IV ONE; -IRON SUCROSE 475 MG in NS 250 ML IV ONE
== END ==
LOC: M SFHCPLAZ 12:42
PROVIDERS: ATTEND Physician Assistant
DX: R10.84 Generalized abdominal pain (principal)

== ENCOUNTER → 2021-10-26 | Outpatient (CLI) | payer MEDICARE ==
[~2021-10-26] MED LIST changes: -D31000TA2 PO; +VITA100093 PO
[2021-10-26 17:36] LABS: HEMATOCRIT 35.2 % (36.0-47.0); HEMOGLOBIN 10.5 g/dl (12.0-15.5); MEAN CORPUSCULAR HEMOGLOBIN 26.5 pg (27.0-33.0); MEAN CORPUSCULAR HGB CONC 29.8 g/dl (32.0-36.5); MEAN CORPUSCULAR VOLUME 88.9 fl (80.0-96.0); PLATELET COUNT, AUTOMATED 241 10^3/uL (150-450); RED BLOOD COUNT 3.96 10^6/uL (4.00-5.40); WHITE BLOOD COUNT 4.4 10^3/uL (4.0-10.0)
[2021-10-26 17:58] LABS: ALBUMIN 3.6 GM/DL (3.2-5.2); ALT/SGPT 23 U/L (12-78); BILIRUBIN,TOTAL 0.2 MG/DL (0.2-1.0); BLOOD UREA NITROGEN 30 MG/DL (7-18); CALCIUM LEVEL 9.6 MG/DL (8.8-10.2); CARBON DIOXIDE LEVEL 25 MEQ/L (21-32); CHLORIDE LEVEL 109 MEQ/L (98-107); CREATININE FOR GFR 0.81 MG/DL (0.55-1.30); GLOMERULAR FILTRATION RATE > 60.0 (>39); GLUCOSE, FASTING 157 MG/DL (70-100); IRON (FE) 38 UG/DL (50-170); PERCENT SATURATION 10.5 % (13.2-45.0); POTASSIUM SERUM 4.3 MEQ/L (3.5-5.1); SODIUM LEVEL 142 MEQ/L (136-145); TOTAL IRON BINDING CAPACITY 363 UG/DL (250-450); TOTAL PROTEIN 6.3 GM/DL (6.4-8.2)
[2021-10-26 18:50] LABS: HEMOGLOBIN A1c 6.5 %
== END ==
LOC: M PLALAB 16:05
PROVIDERS: ATTEND Nurse Practitioner Adult Health
DX: E11.29 Type 2 diabetes mellitus with other diabetic kidney complication (principal); D50.9 Iron deficiency anemia, unspecified

== ENCOUNTER → 2021-12-07 | Outpatient (CLI) | payer MEDICARE ==
[2021-12-07 14:37] LABS: HEMATOCRIT 37.1 % (36.0-47.0); HEMOGLOBIN 11.5 g/dl (12.0-15.5); MEAN CORPUSCULAR HEMOGLOBIN 27.4 pg (27.0-33.0); MEAN CORPUSCULAR VOLUME 88.5 fl (80.0-96.0); PLATELET COUNT, AUTOMATED 214 10^3/uL (150-450); RED BLOOD COUNT 4.19 10^6/uL (4.00-5.40); WHITE BLOOD COUNT 4.9 10^3/uL (4.0-10.0)
[2021-12-07 15:22] LABS: ALBUMIN 3.6 GM/DL (3.2-5.2); ALT/SGPT 26 U/L (12-78); BILIRUBIN,TOTAL 0.3 MG/DL (0.2-1.0); BLOOD UREA NITROGEN 30 MG/DL (7-18); CALCIUM LEVEL 9.5 MG/DL (8.8-10.2); CARBON DIOXIDE LEVEL 29 MEQ/L (21-32); CHLORIDE LEVEL 107 MEQ/L (98-107); CREATININE FOR GFR 0.87 MG/DL (0.55-1.30); FERRITIN 11 NG/ML (8-252); GLOMERULAR FILTRATION RATE > 60.0 (>39); GLUCOSE, FASTING 107 MG/DL (70-100); IRON (FE) 83 UG/DL (50-170); POTASSIUM SERUM 4.5 MEQ/L (3.5-5.1); SODIUM LEVEL 140 MEQ/L (136-145); TOTAL 25(OH) VITAMIN D 64.2 NG/ML (30.0-100.0); TOTAL PROTEIN 6.2 GM/DL (6.4-8.2)
[2021-12-07 17:28] LABS: HEMOGLOBIN A1c 6.6 %
== END ==
LOC: M PLALAB 10:22
PROVIDERS: ATTEND Nurse Practitioner Adult Health
DX: E11.29 Type 2 diabetes mellitus with other diabetic kidney complication (principal); D50.9 Iron deficiency anemia, unspecified; E55.9 Vitamin D deficiency, unspecified; Z79.899 Other long term (current) drug therapy

== ENCOUNTER → 2022-02-23 | Outpatient (CLI) | payer MEDICARE ==
[~2022-02-23] MED LIST changes: +ALBU2.5V10 INH; -ALBU83IN INH
[2022-02-23 10:25] LABS: HEMATOCRIT 38.4 % (36.0-47.0); MEAN CORPUSCULAR HEMOGLOBIN 27.7 pg (27.0-33.0); MEAN CORPUSCULAR HGB CONC 31.3 g/dl (32.0-36.5); MEAN CORPUSCULAR VOLUME 88.7 fl (80.0-96.0); PLATELET COUNT, AUTOMATED 218 10^3/uL (150-450); RED BLOOD COUNT 4.33 10^6/uL (4.00-5.40); WHITE BLOOD COUNT 4.7 10^3/uL (4.0-10.0)
[2022-02-23 10:46] LABS: CREATININE, URINE 58.4 MG/DL; HEMOGLOBIN A1c 6.6 %; MALB URINE SIEMENS 25.2 MG/L; MAU/CREAT RATIO 43.1 MCG/MG (0.0-30.0)
[2022-02-23 10:59] LABS: ALBUMIN 3.7 GM/DL (3.2-5.2); ALT/SGPT 18 U/L (12-78); BILIRUBIN,TOTAL 0.4 MG/DL (0.2-1.0); BLOOD UREA NITROGEN 29 MG/DL (7-18); CALCIUM LEVEL 9.1 MG/DL (8.8-10.2); CARBON DIOXIDE LEVEL 29 MEQ/L (21-32); CHLORIDE LEVEL 109 MEQ/L (98-107); CHOLESTEROL LEVEL 164 MG/DL (<200); CHOLESTEROL RISK RATIO 2.484 (<5); CREATININE FOR GFR 0.92 MG/DL (0.55-1.30); FERRITIN 10 NG/ML (8-252); GLOMERULAR FILTRATION RATE > 60.0 (>39); GLUCOSE, FASTING 113 MG/DL (70-100); HDL CHOLESTEROL 66 MG/DL (>40); IRON (FE) 58 UG/DL (50-170); LDL CHOLESTEROL 86 MG/DL (<100); NON-HDL-C 98 MG/DL; PERCENT SATURATION 14.7 % (13.2-45.0); POTASSIUM SERUM 3.9 MEQ/L (3.5-5.1); SODIUM LEVEL 142 MEQ/L (136-145); TOTAL IRON BINDING CAPACITY 395 UG/DL (250-450); TOTAL PROTEIN 6.6 GM/DL (6.4-8.2); TRIGLYCERIDES LEVEL 60 MG/DL (<150)
== END ==
LOC: M PLALAB 08:58
PROVIDERS: ATTEND Nurse Practitioner Adult Health
DX: D50.9 Iron deficiency anemia, unspecified (principal); E78.00 Pure hypercholesterolemia, unspecified

== ENCOUNTER → 2022-03-28 | Outpatient (REF) | payer MEDICARE | LOC: M LAB REF 16:06 | PROVIDERS: ATTEND Ophthalmology | DX: C44.1122 Basal cell carcinoma of skin of right lower eyelid, including canthus (principal) ==

== ENCOUNTER → 2022-06-07 | Outpatient (CLI) | payer MEDICARE ==
[2022-06-07 12:05] LABS: HEMATOCRIT 40.4 % (36.0-47.0); HEMOGLOBIN 12.5 g/dl (12.0-15.5); MEAN CORPUSCULAR HEMOGLOBIN 27.7 pg (27.0-33.0); MEAN CORPUSCULAR HGB CONC 30.9 g/dl (32.0-36.5); MEAN CORPUSCULAR VOLUME 89.6 fl (80.0-96.0); PLATELET COUNT, AUTOMATED 221 10^3/uL (150-450); RED BLOOD COUNT 4.51 10^6/uL (4.00-5.40); WHITE BLOOD COUNT 5.5 10^3/uL (4.0-10.0)
[2022-06-07 12:46] LABS: ALBUMIN 3.5 GM/DL (3.2-5.2); ALT/SGPT 17 U/L (12-78); BILIRUBIN,TOTAL 0.4 MG/DL (0.2-1.0); BLOOD UREA NITROGEN 23 MG/DL (7-18); CALCIUM LEVEL 9.3 MG/DL (8.8-10.2); CARBON DIOXIDE LEVEL 31 MEQ/L (21-32); CHLORIDE LEVEL 106 MEQ/L (98-107); CHOLESTEROL LEVEL 191 MG/DL (<200); CREATININE FOR GFR 0.96 MG/DL (0.55-1.30); FERRITIN 16 NG/ML (8-252); GLOMERULAR FILTRATION RATE > 60.0 (>39); GLUCOSE, FASTING 137 MG/DL (70-100); HDL CHOLESTEROL 67 MG/DL (>40); IRON (FE) 118 UG/DL (50-170); LDL CHOLESTEROL 104 MG/DL (<100); NON-HDL-C 124 MG/DL; PERCENT SATURATION 32.5 % (13.2-45.0); POTASSIUM SERUM 4.1 MEQ/L (3.5-5.1); SODIUM LEVEL 143 MEQ/L (136-145); TOTAL IRON BINDING CAPACITY 363 UG/DL (250-450); TOTAL PROTEIN 6.5 GM/DL (6.4-8.2); TRIGLYCERIDES LEVEL 100 MG/DL (<150)
[2022-06-07 12:50] LABS: MALB URINE SIEMENS 44.8 MG/L; MAU/CREAT RATIO 34.4 MCG/MG (0.0-30.0)
[2022-06-07 13:19] LABS: TOTAL 25(OH) VITAMIN D 63.4 NG/ML (30.0-100.0)
[2022-06-07 13:26] LABS: HEMOGLOBIN A1c 6.6 %
== END ==
LOC: M PLALAB 08:02
PROVIDERS: ATTEND Nurse Practitioner Adult Health
DX: E11.22 Type 2 diabetes mellitus with diabetic chronic kidney disease (principal)

== ENCOUNTER → 2022-06-26 | Outpatient (CLI) | payer MEDICARE | LOC: M WHC 10:23 | PROVIDERS: ATTEND Nurse Practitioner Adult Health | DX: Z12.31 Encounter for screening mammogram for malignant neoplasm of breast (principal) ==

== ENCOUNTER → 2022-07-30 | Outpatient (REF) | payer MEDICARE | LOC: M LAB REF 16:08 | PROVIDERS: ATTEND Physician Assistant | DX: H04.331 Acute lacrimal canaliculitis of right lacrimal passage (principal) ==

== ENCOUNTER → 2022-12-05 | Outpatient (CLI) | payer MEDICARE ==
[2022-12-05 11:04] LABS: HEMATOCRIT 38.5 % (36.0-47.0); HEMOGLOBIN 11.8 g/dl (12.0-15.5); MEAN CORPUSCULAR HEMOGLOBIN 27.8 pg (27.0-33.0); MEAN CORPUSCULAR HGB CONC 30.6 g/dl (32.0-36.5); MEAN CORPUSCULAR VOLUME 90.8 fl (80.0-96.0); PLATELET COUNT, AUTOMATED 218 10^3/uL (150-450); RED BLOOD COUNT 4.24 10^6/uL (4.00-5.40); WHITE BLOOD COUNT 4.8 10^3/uL (4.0-10.0)
[2022-12-05 11:10] LABS: IRON (FE) 61 UG/DL (50-170); TOTAL IRON BINDING CAPACITY 358 UG/DL (250-425)
[2022-12-05 11:12] LABS: ALBUMIN 3.8 G/DL (3.2-5.2); ALKALINE PHOSPHATASE 74 U/L (46-116); ALT/SGPT 11 U/L (7.0-40); AST/SGOT 13 U/L (<34); BILIRUBIN,TOTAL 0.5 MG/DL (0.3-1.2); BLOOD UREA NITROGEN 23 MG/DL (9-23); CALCIUM LEVEL 9.6 MG/DL (8.3-10.6); CARBON DIOXIDE LEVEL 31 MMOL/L (20-31); CHLORIDE LEVEL 104 MMOL/L (98-107); CHOLESTEROL LEVEL 190 MG/DL (<200); CREATININE FOR GFR 0.81 MG/DL (0.55-1.30); FERRITIN 9.9 NG/ML (7.3-270.7); GLOMERULAR FILTRATION RATE > 60.0 (>39); GLUCOSE, FASTING 133 MG/DL (74-106); HDL CHOLESTEROL 59.3 MG/DL (>40); LDL CHOLESTEROL 112.3 MG/DL (<100); NON-HDL-C 130.7 MG/DL; POTASSIUM SERUM 4.1 MMOL/L (3.5-5.1); SODIUM LEVEL 141 MMOL/L (136-145); TOTAL 25(OH) VITAMIN D 64.7 NG/ML (20.0-100.0); TOTAL PROTEIN 6.3 G/DL (5.7-8.2); TRIGLYCERIDES LEVEL 92 MG/DL (<150)
[2022-12-05 11:25] LABS: HEMOGLOBIN A1c 6.4 % (4.0-6.0)
[2022-12-05 11:28] LABS: CREATININE, URINE 157.7 MG/DL
[2022-12-05 11:29] LABS: MAU/CREAT RATIO 55.1 MCG/MG (0.0-30.0)
== END ==
LOC: M PLALAB 08:00
PROVIDERS: ATTEND Nurse Practitioner Adult Health
DX: D50.9 Iron deficiency anemia, unspecified (principal); E78.00 Pure hypercholesterolemia, unspecified

== ENCOUNTER → 2023-02-05 | Outpatient (CLI) | payer MEDICARE | LOC: M PLAIMG 11:08 | PROVIDERS: ATTEND Physician Assistant | DX: K59.01 Slow transit constipation (principal); R10.84 Generalized abdominal pain ==

== ENCOUNTER → 2023-02-08 | Outpatient (CLI) | payer MEDICARE | LOC: M WHC 10:00 | PROVIDERS: ATTEND Physician Assistant | DX: K80.20 Calculus of gallbladder without cholecystitis without obstruction (principal); R10.84 Generalized abdominal pain ==

== ENCOUNTER → 2023-02-13 | Outpatient (CLI) | payer MEDICARE ==
[2023-02-13 13:28] LABS: BASO % 0.3 % (0.0-1.0); EOS % 0.4 % (0.0-3.0); LYMPH # 0.5 10^3/uL (1.5-5.0); LYMPH % 6.7 % (24.0-44.0); MEAN CORPUSCULAR HGB CONC 29.7 g/dl (32.0-36.5); MEAN CORPUSCULAR VOLUME 90.7 fl (80.0-96.0); MONO # 0.6 10^3/uL (0.0-0.8); NEUTROPHILS # 6.2 10^3/uL (1.5-8.5); NEUTROPHILS % 84.3 % (36.0-66.0); PLATELET COUNT, AUTOMATED 221 10^3/uL (150-450); RED BLOOD COUNT 4.08 10^6/uL (4.00-5.40); WHITE BLOOD COUNT 7.3 10^3/uL (4.0-10.0)
[2023-02-13 13:54] LABS: LIPASE 49 U/L (12-53)
[2023-02-13 13:55] LABS: HEMOGLOBIN A1c 6.6 % (4.0-6.0)
[2023-02-13 13:56] LABS: ALBUMIN 3.7 G/DL (3.2-5.2); ALKALINE PHOSPHATASE 91 U/L (46-116); ALT/SGPT 33 U/L (7.0-40); AST/SGOT 18 U/L (<34); BILIRUBIN,TOTAL 0.5 MG/DL (0.3-1.2); BLOOD UREA NITROGEN 29 MG/DL (9-23); CARBON DIOXIDE LEVEL 28 MMOL/L (20-31); CHLORIDE LEVEL 106 MMOL/L (98-107); CREATININE FOR GFR 0.77 MG/DL (0.55-1.30); FREE T4 1.01 NG/DL (0.89-1.76); GLOMERULAR FILTRATION RATE > 60.0 (>39); GLUCOSE, FASTING 134 MG/DL (74-106); SODIUM LEVEL 141 MMOL/L (136-145); THYROID STIMULATING HORMONE 3.256 uIU/ML (0.55-4.78); TOTAL PROTEIN 6.2 G/DL (5.7-8.2)
[2023-02-13 13:58] LABS: FERRITIN 10.5 NG/ML (7.3-270.7); TOTAL 25(OH) VITAMIN D 47.9 NG/ML (20.0-100.0)
== END ==
LOC: M PLALAB 10:09
PROVIDERS: ATTEND Physician Assistant
DX: R10.84 Generalized abdominal pain (principal); E11.9 Type 2 diabetes mellitus without complications; E55.9 Vitamin D deficiency, unspecified; D50.9 Iron deficiency anemia, unspecified

== ENCOUNTER → 2023-03-21 | Outpatient (CLI) | payer MEDICARE | LOC: M PLAIMG 15:43 | PROVIDERS: ATTEND Physician Assistant | DX: M11.262 Other chondrocalcinosis, left knee (principal); M25.562 Pain in left knee ==

== ENCOUNTER 2023-04-10 11:25 | Day surgery (SDC) | payer MEDICARE ==
[~2023-04-10] VITALS: Ht 160 cm; Wt 86.2 kg
[~2023-04-10 11:25] MED LIST changes: +ALBU6.7H6 INH; +ASPI-226 PO; +FLUT50SP17; +JANU100T PO; +NS 1,000 ML IV ONE; +PANT40TA29 PO; +POTA-151 PO; +PRED10PA PO; +SPIR-10 PO; +VENL150C43 PO; +VITA200016 PO; +XARE20TA PO
[2023-04-10] MEDS ORDERED: propofoL 200 MG/20 ML VIAL As Ordered ONE (12:20)
[2023-04-10] MEDS ORDERED: LIDOCAINE 2% 100MG/5ML SDV (FOR ANES.) As Ordered ONE (12:20)
[2023-04-10 12:58] VITALS: TEMP 97.5
[2023-04-10 13:12] VITALS: BP 125/75; O2SAT 96
== END 2023-04-10 13:20 | disposition home or self-care (01) ==
LOC: M OPP 11:25
PROVIDERS: ATTEND Surgery
DX: Z86.010 Personal history of colon polyps (principal); K64.1 Second degree hemorrhoids; K57.30 Diverticulosis of large intestine without perforation or abscess without bleeding; Z79.01 Long term (current) use of anticoagulants; Z79.02 Long term (current) use of antithrombotics/antiplatelets; Z79.2 Long term (current) use of antibiotics; Z79.51 Long term (current) use of inhaled steroids; Z79.52 Long term (current) use of systemic steroids; Z79.82 Long term (current) use of aspirin; Z79.84 Long term (current) use of oral hypoglycemic drugs

== ENCOUNTER → 2023-05-10 | Outpatient (REF) | payer MEDICARE ==
[~2023-05-10] MED LIST changes: -NS 1,000 ML IV ONE
== END ==
LOC: M SFHCPLAZ 17:16
PROVIDERS: ATTEND Physician Assistant
DX: R05.1 Acute cough (principal)

== ENCOUNTER → 2023-07-04 | Outpatient (CLI) | payer MEDICARE | LOC: M WHC 13:38 | PROVIDERS: ATTEND Nurse Practitioner Family | DX: Z12.31 Encounter for screening mammogram for malignant neoplasm of breast (principal) ==

== ENCOUNTER → 2023-10-07 | Outpatient (CLI) | payer MEDICARE ==
[~2023-10-07] MED LIST changes: -FLUT50SP17; +FLUTISP
== END ==
LOC: M LAB 10:43
PROVIDERS: ATTEND Internal Medicine
DX: D64.9 Anemia, unspecified (principal)

== ENCOUNTER 2023-10-08 07:31 | Outpatient (CLI) | payer MEDICARE ==
[2023-10-08] VITALS (7 sets, daily range): BP systolic 99–111; BP diastolic 48–75; TEMP 97–98.1; O2SAT 96–100
[~2023-10-08] VITALS: Ht 160 cm; Wt 89.8 kg
[~2023-10-08 07:31] MED LIST changes: +ACETAMINOPHEN TAB 650MG DOSE (2X325MG) PO ONE; +NS 250 ML IV ONE; +diphenhydrAMINE 25MG CAP PO ONE
== END 2023-10-08 13:10 | disposition home or self-care (01) ==
LOC: M INFU 07:31
PROVIDERS: ATTEND Nurse Practitioner Family
DX: D64.9 Anemia, unspecified (principal)
CPT/HCPCS: 36430; 96360; 96361; P9016

== ENCOUNTER 2023-10-09 16:54 | Emergency (ER) | payer MEDICARE ==
[~2023-10-09] VITALS: Ht 160 cm; Wt 91.3 kg
[~2023-10-09 16:54] MED LIST changes: -ACETAMINOPHEN TAB 650MG DOSE (2X325MG) PO ONE; -NS 250 ML IV ONE; -diphenhydrAMINE 25MG CAP PO ONE
[2023-10-09 17:59] LABS: BASO % 0.4 % (0.0-1.0); EOS # 0.1 10^3/uL (0.0-0.5); EOS % 0.8 % (0.0-3.0); HEMATOCRIT 31.1 % (36.0-47.0); LYMPH # 0.5 10^3/uL (1.5-5.0); LYMPH % 4.9 % (24.0-44.0); MEAN CORPUSCULAR HEMOGLOBIN 22.7 pg (27.0-33.0); MEAN CORPUSCULAR HGB CONC 28.9 g/dl (32.0-36.5); MEAN CORPUSCULAR VOLUME 78.5 fl (80.0-96.0); MONO # 0.9 10^3/uL (0.0-0.8); MONO % 9.5 % (2.0-8.0); NEUTROPHILS # 8.3 10^3/uL (1.5-8.5); PLATELET COUNT, AUTOMATED 332 10^3/uL (150-450); RED BLOOD COUNT 3.96 10^6/uL (4.00-5.40); WHITE BLOOD COUNT 9.9 10^3/uL (4.0-10.0)
[2023-10-09 18:01] LABS: CK-MB VALUE MASS 1.4 NG/ML (<3.6)
[2023-10-09 18:03] LABS: CPK CREATINE PHOSPHOKINASE 42 U/L (34-145); MB/CK RELATIVE INDEX 3.33 (< OR =4)
[2023-10-09 18:04] LABS: THYROID STIMULATING HORMONE 3.956 uIU/ML (0.55-4.78)
[2023-10-09 18:05] LABS: FREE T4 1.31 NG/DL (0.89-1.76)
[2023-10-09 18:10] LABS: INR 2.1; PROTHROMBIN TIME 22.8 SECONDS (12.5-14.5)
[2023-10-09 18:15] LABS: ALBUMIN 3.5 G/DL (3.2-5.2); ALKALINE PHOSPHATASE 167 U/L (46-116); ALT/SGPT 282 U/L (7.0-40); AST/SGOT 144 U/L (<34); BILIRUBIN,DIRECT 0.7 MG/DL (<0.4); BILIRUBIN,TOTAL 1.4 MG/DL (0.3-1.2); CALCIUM LEVEL 8.8 MG/DL (8.3-10.6); CARBON DIOXIDE LEVEL 25 MMOL/L (20-31); CHLORIDE LEVEL 104 MMOL/L (98-107); CREATININE FOR GFR 0.85 MG/DL (0.55-1.30); GLOMERULAR FILTRATION RATE > 60.0 (>39); GLUCOSE, FASTING 236 MG/DL (74-106); MAGNESIUM LEVEL 1.8 MG/DL (1.8-2.4); PHOSPHORUS LEVEL 3.2 MG/DL (2.4-5.1); POTASSIUM SERUM 3.3 MMOL/L (3.5-5.1); SODIUM LEVEL 137 MMOL/L (136-145); TOTAL PROTEIN 6.1 G/DL (5.7-8.2)
[2023-10-09] MEDS ORDERED: POTASSIUM CHLORIDE 10MEQ SR TABLET PO ONE (18:20)
[2023-10-09 18:25] LABS: BLOOD UREA NITROGEN 25 MG/DL (9-23)
[2023-10-09 19:01] VITALS: BP 111/58; TEMP 97.8; O2SAT 98
[2023-10-09 19:07] LABS: RSV AMPLIFICATION NEGATIVE (NEGATIVE)
== END 2023-10-09 19:04 | disposition short-term general hospital (02) ==
LOC: M ED 16:54
DX: I49.01 Ventricular fibrillation (principal); E87.6 Hypokalemia; R79.89 Other specified abnormal findings of blood chemistry; I51.7 Cardiomegaly; E11.9 Type 2 diabetes mellitus without complications; I10 Essential (primary) hypertension; F32.A Depression, unspecified; G47.33 Obstructive sleep apnea (adult) (pediatric); Z86.73 Personal history of transient ischemic attack (TIA), and cerebral infarction without residual deficits; Z79.82 Long term (current) use of aspirin; Z79.02 Long term (current) use of antithrombotics/antiplatelets; Z79.84 Long term (current) use of oral hypoglycemic drugs; Z79.899 Other long term (current) drug therapy

== ENCOUNTER → 2023-10-18 | Outpatient (REF) | payer MEDICARE ==
[2023-10-18 13:37] LABS: CK-MB VALUE MASS 1.5 NG/ML (<3.6)
[2023-10-18 13:39] LABS: MB/CK RELATIVE INDEX 2.83 (< OR =4)
== END ==
LOC: M LAB REF 12:18
PROVIDERS: ATTEND Nurse Practitioner Family
DX: I11.0 Hypertensive heart disease with heart failure (principal); I50.22 Chronic systolic (congestive) heart failure

== ENCOUNTER 2023-10-19 16:17 | Inpatient (IN) | payer MEDICARE ==
[~2023-10-19] VITALS: Ht 160 cm; Wt 92.5 kg
[2023-10-19] MEDS: NS 500 ML IV ONE (16:40)
[2023-10-19 16:52] LABS: VENOUS BASE EXCESS -5.4 (-2.0-2.0); VENOUS O2 SATURATION 49.1 % (60.0-80.0); VENOUS PARTIAL PRESSURE CO2 38.5 mmHg (38.0-50.0); VENOUS PARTIAL PRESSURE O2 30.9 mmHg (30.0-50.0); VENOUS PH 7.333 UNITS (7.330-7.430); VENOUS STANDARD HCO3 19.3 MMOL/L; VENOUS TOTAL CO2 21.2 MMOL/L (24.0-28.0)
[2023-10-19 16:55] LABS: BASO % 0.1 % (0.0-1.0); HEMATOCRIT 25.7 % (36.0-47.0); HEMOGLOBIN 7.4 g/dl (12.0-15.5); LYMPH # 0.5 10^3/uL (1.5-5.0); LYMPH % 4.9 % (24.0-44.0); MEAN CORPUSCULAR HEMOGLOBIN 22.8 pg (27.0-33.0); MEAN CORPUSCULAR HGB CONC 28.8 g/dl (32.0-36.5); MEAN CORPUSCULAR VOLUME 79.1 fl (80.0-96.0); MONO # 1.1 10^3/uL (0.0-0.8); MONO % 10.1 % (2.0-8.0); PLATELET COUNT, AUTOMATED 241 10^3/uL (150-450); RED BLOOD COUNT 3.25 10^6/uL (4.00-5.40); WHITE BLOOD COUNT 10.7 10^3/uL (4.0-10.0)
[2023-10-19] MEDS ORDERED: cefTRIAXone SOD 2 GM in D5W MINI-BAG PLUS 50 ML IV ONE (16:55)
[2023-10-19 17:20] LABS: ETHYL ALCOHOL (ETHANOL) 0.007 % (0.000-0.010); INR 11.61
[2023-10-19 17:22] LABS: SALICYLATE LEVEL < 3.0 MG/DL (<30)
[2023-10-19 17:50] LABS: ALBUMIN 3.4 G/DL (3.2-5.2); ALKALINE PHOSPHATASE 125 U/L (46-116); ALT/SGPT 1205 U/L (7.0-40); AST/SGOT 1603 U/L (<34); BILIRUBIN,DIRECT 1.8 MG/DL (<0.4); BILIRUBIN,TOTAL 3.4 MG/DL (0.3-1.2); BLOOD UREA NITROGEN 50 MG/DL (9-23); CALCIUM LEVEL 9.7 MG/DL (8.3-10.6); CARBON DIOXIDE LEVEL 21 MMOL/L (20-31); CHLORIDE LEVEL 100 MMOL/L (98-107); CREATININE FOR GFR 1.26 MG/DL (0.55-1.30); GLOMERULAR FILTRATION RATE 44.1 (>39); GLUCOSE, FASTING 202 MG/DL (74-106); POTASSIUM SERUM 4.9 MMOL/L (3.5-5.1); SODIUM LEVEL 131 MMOL/L (136-145); THYROID STIMULATING HORMONE 2.681 uIU/ML (0.55-4.78); TOTAL PROTEIN 5.9 G/DL (5.7-8.2)
[2023-10-19] MEDS ORDERED: ISOVUE-370 76% 100ML VIAL As Ordered ONE (17:55)
[2023-10-19 18:05] LABS: PROTHROMBIN TIME 82.3 SECONDS (12.5-14.5)
[2023-10-19 18:12] LABS: AMPHETAMINES LEVEL URINE NEGATIVE (NEGATIVE); BARBITURATES URINE NEGATIVE (NEGATIVE); BENZODIAZEPINES URINE NEGATIVE (NEGATIVE); CANNABINOIDS URINE NEGATIVE (NEGATIVE); COCAINE METABOLITE URINE NEGATIVE (NEGATIVE); METHADONE URINE NEGATIVE (NEGATIVE); OPIATES URINE NEGATIVE (NEGATIVE); PHENCYCLIDINE URINE NEGATIVE (NEGATIVE)
[2023-10-19 18:22] LABS: INR 11.13
[2023-10-19 18:28] LABS: LIPASE 43 U/L (12-53)
[2023-10-19] MEDS: NS 2,780 ML in IV 1 EA IV ONE (18:33)
[2023-10-19] MEDS: PIPERACILLIN/TAZOBACTAM SOD 4.5 GM in D5W MINI-BAG PLUS 50 ML IV ONE (18:49)
[2023-10-19] MEDS: cefTRIAXone SOD 2 GM in D5W MINI-BAG PLUS 50 ML IV ONE (18:52)
[2023-10-19 19:00] LABS: HEPATITIS B CORE ANTIBODY IGM NEGATIVE (NEGATIVE); HEPATITIS C VIRUS ABY INDEX < 0.02 INDEX (<0.8)
[2023-10-19] MEDS: NOREPINEPHRINE 4MG IN D5 250ML 4 MG in IV 1 EA IV SCH (19:05)
[2023-10-19] MEDS ORDERED: HOME MED LIST COMPLETE! XX SCH (19:40)
[2023-10-19] MEDS ORDERED: NOREPINEPHRINE 4MG IN D5 250ML 4 MG in IV 1 EA IV SCH (19:50)
[2023-10-19] MEDS: VASOPRESSIN INJ 20 UNITS in NS 499 ML IV SCH (21:00)
[2023-10-19 21:20] LABS: VENOUS BASE EXCESS -6.6 (-2.0-2.0); VENOUS HCO3 17.4 MMOL/L (23.0-27.0); VENOUS O2 SATURATION 99.2 % (60.0-80.0); VENOUS PARTIAL PRESSURE CO2 28.6 mmHg (38.0-50.0); VENOUS PARTIAL PRESSURE O2 148.4 mmHg (30.0-50.0); VENOUS PH 7.402 UNITS (7.330-7.430); VENOUS TOTAL CO2 18.3 MMOL/L (24.0-28.0)
[2023-10-19] MEDS: NS 1,000 ML IV SCH (21:27)
[2023-10-19] MEDS: PHYTONADIONE INJection 10 MG in NS 50 ML IV ONE (21:29)
[2023-10-19 21:50] VITALS: BP 108/62; TEMP 98.5; O2SAT 99
[2023-10-19 22:07] VITALS: BP 115/64; TEMP 98.3; O2SAT 94
[2023-10-19 22:58] VITALS: BP 99/64; TEMP 98.2; O2SAT 98
[2023-10-20] MEDS ORDERED: PIPERACILLIN/TAZOBACTAM SOD 4.5 GM in D5W MINI-BAG PLUS 50 ML IV SCH
[2023-10-20] MEDS ORDERED: PANTOPRAZOLE 40MG VIAL IV SCH (09:00)
== END 2023-10-19 23:00 | disposition short-term general hospital (02) | DRG 871 ==
LOC: M ED 16:17 → EDBD 16:17 → M ED INP 19:47
PROVIDERS: ADMIT Internal Medicine Critical Care Medicine; ATTEND Internal Medicine
PROC: 30233N1 Transfusion of Nonautologous Red Blood Cells into Peripheral Vein, Percutaneous Approach (ICD-10-PCS; principal; 2023-10-19)
DX: A41.9 Sepsis, unspecified organism (principal); R57.0 Cardiogenic shock; K72.00 Acute and subacute hepatic failure without coma; I81 Portal vein thrombosis; R65.21 Severe sepsis with septic shock; I42.8 Other cardiomyopathies; K81.0 Acute cholecystitis; K80.42 Calculus of bile duct with acute cholecystitis without obstruction; D68.9 Coagulation defect, unspecified; D64.9 Anemia, unspecified; I27.20 Pulmonary hypertension, unspecified; I50.810 Right heart failure, unspecified; Z95.810 Presence of automatic (implantable) cardiac defibrillator; Z79.01 Long term (current) use of anticoagulants; Z79.82 Long term (current) use of aspirin; Z79.899 Other long term (current) drug therapy; Z95.2 Presence of prosthetic heart valve; Z86.73 Personal history of transient ischemic attack (TIA), and cerebral infarction without residual deficits

== ENCOUNTER 2023-10-27 17:29 | Inpatient (IN) | payer MEDICARE ==
[~2023-10-27] VITALS: Ht 160 cm; Wt 93.1 kg
[2023-10-27 18:13] LABS: VENOUS BASE EXCESS -4.5 (-2.0-2.0); VENOUS HCO3 20.2 MMOL/L (23.0-27.0); VENOUS O2 SATURATION 73.5 % (60.0-80.0); VENOUS PARTIAL PRESSURE CO2 35.7 mmHg (38.0-50.0); VENOUS STANDARD HCO3 20.3 MMOL/L; VENOUS TOTAL CO2 21.3 MMOL/L (24.0-28.0)
[2023-10-27 18:20] LABS: BASO % 0.4 % (0.0-1.0); EOS # 0.1 10^3/uL (0.0-0.5); HEMATOCRIT 32.4 % (36.0-47.0); HEMOGLOBIN 9.1 g/dl (12.0-15.5); LYMPH # 0.5 10^3/uL (1.5-5.0); LYMPH % 5.5 % (24.0-44.0); MEAN CORPUSCULAR HEMOGLOBIN 23.3 pg (27.0-33.0); MEAN CORPUSCULAR HGB CONC 28.1 g/dl (32.0-36.5); MEAN CORPUSCULAR VOLUME 82.9 fl (80.0-96.0); MONO % 12.3 % (2.0-8.0); NEUTROPHILS # 6.5 10^3/uL (1.5-8.5); NEUTROPHILS % 79.7 % (36.0-66.0); PLATELET COUNT, AUTOMATED 289 10^3/uL (150-450); RED BLOOD COUNT 3.91 10^6/uL (4.00-5.40); WHITE BLOOD COUNT 8.1 10^3/uL (4.0-10.0)
[2023-10-27 18:32] LABS: INR 2.51; PROTHROMBIN TIME 26.2 SECONDS (12.5-14.5)
[2023-10-27 18:33] LABS: PARTIAL THROMBOPLASTIN TIME 30.5 SECONDS (24.8-34.2)
[2023-10-27 18:41] LABS: ALBUMIN 3.2 G/DL (3.2-5.2); ALKALINE PHOSPHATASE 111 U/L (46-116); ALT/SGPT 419 U/L (7.0-40); AST/SGOT 45 U/L (<34); BILIRUBIN,DIRECT 0.8 MG/DL (<0.4); BILIRUBIN,TOTAL 1.4 MG/DL (0.3-1.2); BLOOD UREA NITROGEN 27 MG/DL (9-23); CALCIUM LEVEL 9.2 MG/DL (8.3-10.6); CARBON DIOXIDE LEVEL 22 MMOL/L (20-31); CHLORIDE LEVEL 106 MMOL/L (98-107); CK-MB VALUE MASS 2.5 NG/ML (<3.6); CREATININE FOR GFR 0.66 MG/DL (0.55-1.30); GLOMERULAR FILTRATION RATE > 60.0 (>39); GLUCOSE, FASTING 219 MG/DL (74-106); POTASSIUM SERUM 4.5 MMOL/L (3.5-5.1); SODIUM LEVEL 138 MMOL/L (136-145); TOTAL PROTEIN 5.8 G/DL (5.7-8.2)
[2023-10-27 18:43] LABS: THYROXINE (T4) 6.9 UG/DL (4.5-10.9)
[2023-10-27 18:47] LABS: CPK CREATINE PHOSPHOKINASE 39 U/L (34-145); MB/CK RELATIVE INDEX 6.41 (< OR =4)
[2023-10-27 18:55] LABS: RSV AMPLIFICATION NEGATIVE (NEGATIVE)
[2023-10-27] MEDS: FUROSEMIDE 100MG/10ML VIAL IV ONE (19:27)
[2023-10-27] MEDS ORDERED: ISOVUE-370 76% 100ML VIAL As Ordered ONE (19:50)
[2023-10-27 21:39] LABS: CK-MB VALUE MASS 2.4 NG/ML (<3.6)
[2023-10-27 21:42] LABS: MB/CK RELATIVE INDEX 4.7 (< OR =4)
[2023-10-27] MEDS ORDERED: ADVA230A INH (23:15)
[2023-10-27] MEDS ORDERED: HOME MED LIST COMPLETE! XX SCH (23:20)
[2023-10-28] VITALS (9 sets, daily range): BP systolic 96–137; BP diastolic 52–85; TEMP 96.7–97.8; O2SAT 93–99
[2023-10-28] MEDS ORDERED: GLUCOSE 4GM CHEW TABLET PO PRN
[2023-10-28] MEDS ORDERED: MAALOX 30 ML SUSP *UDC PO PRN
[2023-10-28] MEDS ORDERED: DEXTROSE 50% 50ML SYRINGE IV PRN
[2023-10-28] MEDS ORDERED: ACETAMINOPHEN TAB 650MG DOSE (2X325MG) PO PRN
[2023-10-28] MEDS ORDERED: GLUCAGON INJ 1MG VIAL SC PRN
[2023-10-28 05:59] LABS: HEMATOCRIT 30.3 % (36.0-47.0); HEMOGLOBIN 8.5 g/dl (12.0-15.5); MEAN CORPUSCULAR HEMOGLOBIN 23.5 pg (27.0-33.0); MEAN CORPUSCULAR HGB CONC 28.1 g/dl (32.0-36.5); MEAN CORPUSCULAR VOLUME 83.7 fl (80.0-96.0); PLATELET COUNT, AUTOMATED 282 10^3/uL (150-450); RED BLOOD COUNT 3.62 10^6/uL (4.00-5.40); WHITE BLOOD COUNT 6.5 10^3/uL (4.0-10.0)
[2023-10-28 06:21] LABS: ALBUMIN 3.1 G/DL (3.2-5.2); ALKALINE PHOSPHATASE 107 U/L (46-116); ALT/SGPT 372 U/L (7.0-40); AST/SGOT 35 U/L (<34); BILIRUBIN,TOTAL 1.4 MG/DL (0.3-1.2); BLOOD UREA NITROGEN 25 MG/DL (9-23); CALCIUM LEVEL 9.5 MG/DL (8.3-10.6); CARBON DIOXIDE LEVEL 27 MMOL/L (20-31); CHLORIDE LEVEL 105 MMOL/L (98-107); CREATININE FOR GFR 0.71 MG/DL (0.55-1.30); GLOMERULAR FILTRATION RATE > 60.0 (>39); GLUCOSE, FASTING 171 MG/DL (74-106); POTASSIUM SERUM 4.2 MMOL/L (3.5-5.1); SODIUM LEVEL 139 MMOL/L (136-145); TOTAL PROTEIN 5.6 G/DL (5.7-8.2)
[2023-10-28] MEDS: ALBUTEROL 90 MCG/ACT 8GM HFA INHALER INH SCH (07:45)
[2023-10-28] MEDS: ADVAIR HFA 230/21MCG INHALER INH SCH (07:45)
[2023-10-28] MEDS: FUROSEMIDE 40MG/4ML VIAL IV SCH (08:23)
[2023-10-28] MEDS: FLUTICASONE PROP 0.05% NASAL SPRAY 16 GM (FLONASE) SCH (08:23)
[2023-10-28] MEDS: INSULIN LISPRO (NovoLOG) PER UNIT SC SCH ×2 (08:24→21:00)
[2023-10-28] MEDS: ENTRESTO 24-26MG TABLET (SACUBITRIL/VALSARTAN) PO SCH (08:25)
[2023-10-28] MEDS: METOPROLOL SUCC *XL* 25MG TAB (TopROL *XL*) PO SCH (08:26)
[2023-10-28] MEDS: ASPIRIN 81MG ENTERIC TABLET PO SCH (08:26)
[2023-10-28] MEDS: SPIRONOLACTONE 12.5MG PER 1/2 TABLET PO SCH (08:29)
[2023-10-28] MEDS: VENLAFAXINE **XR** 75MG CAPSULE PO SCH (08:29)
[2023-10-28] MEDS: DOCUSATE SODIUM 100MG CAPSULE PO SCH (08:30)
[2023-10-28] MEDS: POTASSIUM CHLORIDE 10MEQ SR TABLET PO SCH (08:30)
[2023-10-28] MEDS: PANTOPRAZOLE 40MG TAB (PROTONIX) PO SCH (08:30)
[2023-10-28] MEDS: MOM 30ML SUSPENSION UDC PO PRN (16:49)
[2023-10-28] MEDS: RIVAROXABAN 20MG TAB (XARELTO) PO SCH (17:58)
[2023-10-28] MEDS: MONTELUKAST 10 MG TAB PO SCH (21:19)
[2023-10-28] MEDS: CETIRIZINE (ZyrTEC) 10 MG TAB PO SCH (21:19)
[2023-10-28] MEDS: clonazePAM 0.5 MG TAB PO PRN (21:27)
[2023-10-29] VITALS: BP 101/56; TEMP 97.8; O2SAT 96
[2023-10-29 03:36] VITALS: BP 96/52; TEMP 97.5; O2SAT 97
[2023-10-29 04:00] VITALS: BP 101/56; TEMP 97.8; O2SAT 96
[2023-10-29 05:44] LABS: HEMATOCRIT 29.3 % (36.0-47.0); HEMOGLOBIN 8.2 g/dl (12.0-15.5); MEAN CORPUSCULAR HEMOGLOBIN 23.6 pg (27.0-33.0); MEAN CORPUSCULAR VOLUME 84.2 fl (80.0-96.0); PLATELET COUNT, AUTOMATED 255 10^3/uL (150-450); RED BLOOD COUNT 3.48 10^6/uL (4.00-5.40); WHITE BLOOD COUNT 5.5 10^3/uL (4.0-10.0)
[2023-10-29 06:12] LABS: BLOOD UREA NITROGEN 25 MG/DL (9-23); CALCIUM LEVEL 8.8 MG/DL (8.3-10.6); CARBON DIOXIDE LEVEL 31 MMOL/L (20-31); CHLORIDE LEVEL 107 MMOL/L (98-107); CREATININE FOR GFR 0.74 MG/DL (0.55-1.30); GLOMERULAR FILTRATION RATE > 60.0 (>39); GLUCOSE, FASTING 182 MG/DL (74-106); POTASSIUM SERUM 3.6 MMOL/L (3.5-5.1); SODIUM LEVEL 143 MMOL/L (136-145)
[2023-10-29 07:18] VITALS: BP 109/75; TEMP 97.6; O2SAT 96
[2023-10-29] MEDS: FUROSEMIDE 20 MG TAB PO SCH (09:31)
[2023-10-29 09:32] VITALS: BP 109/75
[2023-10-29] MEDS ORDERED: FURO40TA2 PO (10:24)
== END 2023-10-29 13:01 | disposition home or self-care (01) | DRG 291 ==
LOC: M ED 17:29 → M ED INP 23:26 → M PCU 10-28 02:28
PROVIDERS: ADMIT Family Medicine; ATTEND Family Medicine
PROC: B246ZZZ Ultrasonography of Right and Left Heart (ICD-10-PCS; principal; 2023-10-28)
DX: I11.0 Hypertensive heart disease with heart failure (principal); I50.23 Acute on chronic systolic (congestive) heart failure; I24.89 Other forms of acute ischemic heart disease; I25.10 Atherosclerotic heart disease of native coronary artery without angina pectoris; E11.9 Type 2 diabetes mellitus without complications; K21.9 Gastro-esophageal reflux disease without esophagitis; D64.9 Anemia, unspecified; I27.20 Pulmonary hypertension, unspecified; I50.810 Right heart failure, unspecified; I25.2 Old myocardial infarction; I25.5 Ischemic cardiomyopathy; R74.01 Elevation of levels of liver transaminase levels; I48.91 Unspecified atrial fibrillation; G47.33 Obstructive sleep apnea (adult) (pediatric); E78.00 Pure hypercholesterolemia, unspecified; E66.9 Obesity, unspecified; I71.21 Aneurysm of the ascending aorta, without rupture; F41.9 Anxiety disorder, unspecified; Z95.810 Presence of automatic (implantable) cardiac defibrillator; Z95.3 Presence of xenogenic heart valve; Z79.82 Long term (current) use of aspirin; Z79.01 Long term (current) use of anticoagulants; Z68.36 Body mass index [BMI] 36.0-36.9, adult

== ENCOUNTER → 2023-11-15 | Outpatient (REF) | payer MEDICARE ==
[~2023-11-15] MED LIST changes: +ADVA230A INH
[2023-11-15 12:35] LABS: CK-MB VALUE MASS 2.8 NG/ML (<3.6); MB/CK RELATIVE INDEX 9.33 (< OR =4)
== END ==
LOC: M LAB REF 11:52
PROVIDERS: ATTEND Nurse Practitioner Family
DX: I11.0 Hypertensive heart disease with heart failure (principal); I50.22 Chronic systolic (congestive) heart failure; R79.89 Other specified abnormal findings of blood chemistry

== ENCOUNTER 2023-12-07 05:58 | Emergency (ER) | payer MEDICARE ==
[~2023-12-07] VITALS: Ht 160 cm; Wt 84.2 kg
[2023-12-07] MEDS: ONDANSETRON 4MG 2ML VIAL IV ONE (07:00)
[2023-12-07 07:10] LABS: HEMATOCRIT 28.2 % (36.0-47.0); MEAN CORPUSCULAR HEMOGLOBIN 23.1 pg (27.0-33.0); MEAN CORPUSCULAR VOLUME 81.3 fl (80.0-96.0); RED BLOOD COUNT 3.47 10^6/uL (4.00-5.40); WHITE BLOOD COUNT 9.2 10^3/uL (4.0-10.0)
[2023-12-07 07:11] LABS: BASO % 0.3 % (0.0-1.0); EOS # 0.1 10^3/uL (0.0-0.5); LYMPH # 0.4 10^3/uL (1.5-5.0); LYMPH % 3.8 % (24.0-44.0); MEAN CORPUSCULAR HGB CONC 28.4 g/dl (32.0-36.5); MONO # 0.8 10^3/uL (0.0-0.8); MONO % 8.1 % (2.0-8.0); NEUTROPHILS % 86.5 % (36.0-66.0); PLATELET COUNT, AUTOMATED 248 10^3/uL (150-450)
[2023-12-07] MEDS: MORPHINE 2 MG/ML 1ML VIAL IV ONE (07:12)
[2023-12-07 07:34] LABS: ALBUMIN 3.5 G/DL (3.2-5.2); BILIRUBIN,DIRECT 0.2 MG/DL (<0.4); BILIRUBIN,TOTAL 0.4 MG/DL (0.3-1.2)
[2023-12-07] MEDS: NS 1,000 ML IV ONE (08:51)
[2023-12-07] MEDS ORDERED: AMOX875T2 PO (10:16)
[2023-12-07] MEDS ORDERED: HYDR-3713 PO (10:16)
[2023-12-07 10:31] VITALS: BP 127/81; TEMP 98.7; O2SAT 97
== END 2023-12-07 10:31 | disposition home or self-care (01) ==
LOC: M ED 05:58
DX: K81.9 Cholecystitis, unspecified (principal); I11.0 Hypertensive heart disease with heart failure; E03.9 Hypothyroidism, unspecified; I50.22 Chronic systolic (congestive) heart failure; I25.2 Old myocardial infarction; F41.9 Anxiety disorder, unspecified; F32.A Depression, unspecified; Z79.1 Long term (current) use of non-steroidal anti-inflammatories (NSAID); Z79.51 Long term (current) use of inhaled steroids; Z79.2 Long term (current) use of antibiotics; Z79.899 Other long term (current) drug therapy
CPT/HCPCS: 76705; 80047; 80076; 83605; 83690; 85025; 87040; 96361; 96374; 96375; 99284; J2405

== ENCOUNTER → 2023-12-18 | Outpatient (REF) | payer MEDICARE ==
[~2023-12-18] MED LIST changes: +AMOX875T2 PO; +CHOL4PW PO; +HYDR-3713 PO
[2023-12-18 12:25] LABS: CK-MB VALUE MASS 4.2 NG/ML (<3.6)
[2023-12-18 12:26] LABS: MB/CK RELATIVE INDEX 13.12 (< OR =4)
== END ==
LOC: M LAB REF 11:24
PROVIDERS: ATTEND Internal Medicine
DX: I50.22 Chronic systolic (congestive) heart failure (principal)

== ENCOUNTER 2023-12-25 06:07 | Day surgery (SDC) | payer MEDICARE ==
[~2023-12-25] VITALS: Ht 160 cm; Wt 86.5 kg
[2023-12-25] MEDS ORDERED: ONDANSETRON 4MG 2ML VIAL As Ordered ONE (06:57)
[2023-12-25] MEDS ORDERED: ROCURONIUM BROMIDE 50MG/5ML VIAL As Ordered ONE (06:57)
[2023-12-25] MEDS ORDERED: propofoL 200 MG/20 ML VIAL As Ordered ONE (06:57)
[2023-12-25] MEDS ORDERED: LIDOCAINE 2% 100MG/5ML SDV (FOR ANES.) As Ordered ONE (06:57)
[2023-12-25] MEDS ORDERED: SUGAMMADEX SODIUM 500 MG/5 ML VIAL (BRIDION) As Ordered ONE (06:57)
[2023-12-25] MEDS ORDERED: KETOROLAC 60MG 2ML VIAL As Ordered ONE (06:57)
[2023-12-25] MEDS ORDERED: MIDAZOLAM INJ 2MG/2ML VIAL As Ordered ONE (07:03)
[2023-12-25] MEDS ORDERED: fentaNYL 250 MCG/5 ML INJECTION As Ordered ONE (07:03)
[2023-12-25] MEDS: LR 1,000 ML IV SCH (07:29)
[2023-12-25] MEDS ORDERED: GLUCOSE 4GM CHEW TABLET PO PRN (07:30)
[2023-12-25] MEDS ORDERED: GLUCAGON INJ 1MG VIAL SC PRN (07:30)
[2023-12-25] MEDS ORDERED: DEXTROSE 50% 50ML SYRINGE IV PRN (07:30)
[2023-12-25] MEDS: INSULIN LISPRO (NovoLOG) PER UNIT SC PRN ×2 (07:36→09:25)
[2023-12-25] MEDS ORDERED: ESMOLOL INJ 100MG/10ML VIAL As Ordered ONE (07:47)
[2023-12-25] MEDS ORDERED: PHENYLephrine 500MCG 5ML (100MCG/ML) SYRINGE As Ordered ONE (07:50)
[2023-12-25] MEDS: ceFAZolin SOD 2 GM in IV 1 EA IV ONE (07:56)
[2023-12-25] MEDS ORDERED: ACETAMINOPHEN 1000MG 100ML IV BAG As Ordered ONE (08:00)
[2023-12-25] MEDS ORDERED: LR 1,000 ML IV SCH (09:00)
[2023-12-25] MEDS ORDERED: fentaNYL 100 MCG/2 ML INJECTION IV PRN (09:00)
[2023-12-25] MEDS ORDERED: HYDROMORPHONE HCL 0.5 MG/ 0.5 ML SYRINGE IV PRN (09:00)
[2023-12-25] MEDS ORDERED: ONDANSETRON 4MG 2ML VIAL IV PRN (09:00)
[2023-12-25] MEDS: oxyCODONE 5MG TAB PO PRN (09:44)
[2023-12-25] MEDS ORDERED: NORCO, ANEXSIA 5/325MG TABLET (HYDROcodone/ACETAMINOPHEN) PO PRN (10:15)
[2023-12-25 11:35] VITALS: BP 112/60; TEMP 97.6; O2SAT 96
== END 2023-12-25 11:49 | disposition home or self-care (01) ==
LOC: M SDC 06:07
PROVIDERS: ATTEND Surgery
DX: K80.10 Calculus of gallbladder with chronic cholecystitis without obstruction (principal); I48.91 Unspecified atrial fibrillation; I25.10 Atherosclerotic heart disease of native coronary artery without angina pectoris; I11.0 Hypertensive heart disease with heart failure; I25.2 Old myocardial infarction; E11.9 Type 2 diabetes mellitus without complications; Z79.899 Other long term (current) drug therapy; I50.9 Heart failure, unspecified; F32.A Depression, unspecified; Z95.0 Presence of cardiac pacemaker; G47.30 Sleep apnea, unspecified; Z86.73 Personal history of transient ischemic attack (TIA), and cerebral infarction without residual deficits; Z95.2 Presence of prosthetic heart valve
CPT/HCPCS: 47562; 88304; J0131; J0665; J0690; J1100; J1805; J1815; J1885; J2250; J2371; J2405; J3010

== ENCOUNTER 2024-01-15 15:19 | Emergency (ER) | payer MEDICARE ==
[~2024-01-15] VITALS: Ht 160 cm; Wt 83.3 kg
[2024-01-15 16:39] LABS: BASO % 0.5 % (0.0-1.0); EOS # 0.1 10^3/uL (0.0-0.5); EOS % 1.4 % (0.0-3.0); HEMATOCRIT 26.3 % (36.0-47.0); HEMOGLOBIN 7.4 g/dl (12.0-15.5); LYMPH # 0.6 10^3/uL (1.5-5.0); LYMPH % 8.9 % (24.0-44.0); MEAN CORPUSCULAR HEMOGLOBIN 21.3 pg (27.0-33.0); MEAN CORPUSCULAR HGB CONC 28.1 g/dl (32.0-36.5); MEAN CORPUSCULAR VOLUME 75.6 fl (80.0-96.0); MONO # 0.8 10^3/uL (0.0-0.8); NEUTROPHILS # 4.9 10^3/uL (1.5-8.5); NEUTROPHILS % 76.9 % (36.0-66.0); PLATELET COUNT, AUTOMATED 371 10^3/uL (150-450); RED BLOOD COUNT 3.48 10^6/uL (4.00-5.40); WHITE BLOOD COUNT 6.4 10^3/uL (4.0-10.0)
[2024-01-15 16:51] LABS: INR 1.81; PROTHROMBIN TIME 20.3 SECONDS (12.5-14.5)
[2024-01-15 17:03] LABS: CK-MB VALUE MASS 2.2 NG/ML (<3.6)
[2024-01-15 17:06] LABS: CPK CREATINE PHOSPHOKINASE 31 U/L (34-145); MB/CK RELATIVE INDEX 7.09 (< OR =4)
[2024-01-15 17:07] LABS: ALKALINE PHOSPHATASE 111 U/L (46-116); ALT/SGPT 24 U/L (7.0-40); AST/SGOT 17 U/L (<34); BILIRUBIN,DIRECT 0.3 MG/DL (<0.4); BILIRUBIN,TOTAL 0.7 MG/DL (0.3-1.2); BLOOD UREA NITROGEN 29 MG/DL (9-23); CALCIUM LEVEL 9.2 MG/DL (8.3-10.6); CARBON DIOXIDE LEVEL 24 MMOL/L (20-31); CHLORIDE LEVEL 109 MMOL/L (98-107); CREATININE FOR GFR 0.62 MG/DL (0.55-1.30); GLOMERULAR FILTRATION RATE > 60.0 (>39); GLUCOSE, FASTING 216 MG/DL (74-106); SODIUM LEVEL 141 MMOL/L (136-145)
[2024-01-15 17:08] LABS: FREE T4 1.09 NG/DL (0.89-1.76)
[2024-01-15 18:20] LABS: CK-MB VALUE MASS 3.1 NG/ML (<3.6)
[2024-01-15 18:21] LABS: MB/CK RELATIVE INDEX 9.39 (< OR =4)
[2024-01-15] MEDS: PANTOPRAZOLE 40MG VIAL IV ONE (18:44)
[2024-01-15] MEDS: clonazePAM 0.5 MG TAB PO ONE (18:44)
[2024-01-15] MEDS: FUROSEMIDE 40MG/4ML VIAL IV ONE (18:44)
[2024-01-15 19:18] VITALS: BP 119/88; TEMP 96.4; O2SAT 98
[2024-01-15 19:38] VITALS: BP 126/81; TEMP 97.2; TEMP 97.6
[2024-01-15 20:30] VITALS: BP 118/71; TEMP 97.2; O2SAT 98
== END 2024-01-15 20:30 | disposition short-term general hospital (02) ==
LOC: M ED 15:19
DX: I21.4 Non-ST elevation (NSTEMI) myocardial infarction (principal); D64.9 Anemia, unspecified; I50.22 Chronic systolic (congestive) heart failure; I25.119 Atherosclerotic heart disease of native coronary artery with unspecified angina pectoris; I48.91 Unspecified atrial fibrillation; I11.0 Hypertensive heart disease with heart failure; Z79.51 Long term (current) use of inhaled steroids; Z79.2 Long term (current) use of antibiotics; Z79.1 Long term (current) use of non-steroidal anti-inflammatories (NSAID); Z79.899 Other long term (current) drug therapy
CPT/HCPCS: 36430; 71045; 80048; 80076; 82550; 82553; 83605; 83880; 84439; 84443; 84484; 85025; 85610; 86850; 86870; 86900; 86901; 86920; 87040; 93005; 93041; 94760; 96374; 99285; C9113; J1940; P9016

== ENCOUNTER 2024-02-19 10:50 | Emergency (ER) | payer MEDICARE ==
[~2024-02-19] VITALS: Ht 160 cm; Wt 82.2 kg
[2024-02-19 11:36] LABS: VENOUS BASE EXCESS -3.9 (-2.0-2.0); VENOUS HCO3 21.4 MMOL/L (23.0-27.0); VENOUS O2 SATURATION 38.6 % (60.0-80.0); VENOUS PARTIAL PRESSURE O2 28.2 mmHg (30.0-50.0); VENOUS PH 7.346 UNITS (7.330-7.430); VENOUS STANDARD HCO3 20.4 MMOL/L; VENOUS TOTAL CO2 22.6 MMOL/L (24.0-28.0)
[2024-02-19 11:47] LABS: BASO % 0.5 % (0.0-1.0); EOS # 0.1 10^3/uL (0.0-0.5); EOS % 1.1 % (0.0-3.0); HEMATOCRIT 23.8 % (36.0-47.0); LYMPH # 0.5 10^3/uL (1.5-5.0); LYMPH % 7.6 % (24.0-44.0); MEAN CORPUSCULAR HEMOGLOBIN 21.5 pg (27.0-33.0); MEAN CORPUSCULAR HGB CONC 27.7 g/dl (32.0-36.5); MEAN CORPUSCULAR VOLUME 77.5 fl (80.0-96.0); MONO # 0.8 10^3/uL (0.0-0.8); NEUTROPHILS # 5.1 10^3/uL (1.5-8.5); NEUTROPHILS % 78.5 % (36.0-66.0); PLATELET COUNT, AUTOMATED 297 10^3/uL (150-450); RED BLOOD COUNT 3.07 10^6/uL (4.00-5.40); WHITE BLOOD COUNT 6.5 10^3/uL (4.0-10.0)
[2024-02-19 11:57] LABS: HEMOGLOBIN 6.6 g/dl (12.0-15.5)
[2024-02-19 11:59] LABS: INR 4.17; PROTHROMBIN TIME 38.7 SECONDS (12.5-14.5)
[2024-02-19 12:05] LABS: LIPASE 50 U/L (12-53)
[2024-02-19 12:07] LABS: ALBUMIN 3.1 G/DL (3.2-5.2); ALKALINE PHOSPHATASE 133 U/L (46-116); ALT/SGPT 45 U/L (7.0-40); AST/SGOT 44 U/L (<34); BILIRUBIN,DIRECT 0.7 MG/DL (<0.4); BILIRUBIN,TOTAL 1.2 MG/DL (0.3-1.2); BLOOD UREA NITROGEN 26 MG/DL (9-23); CALCIUM LEVEL 9.1 MG/DL (8.3-10.6); CARBON DIOXIDE LEVEL 23 MMOL/L (20-31); CHLORIDE LEVEL 108 MMOL/L (98-107); CREATININE FOR GFR 0.73 MG/DL (0.55-1.30); GLOMERULAR FILTRATION RATE > 60.0 (>39); GLUCOSE, FASTING 293 MG/DL (74-106); POTASSIUM SERUM 3.5 MMOL/L (3.5-5.1); SODIUM LEVEL 142 MMOL/L (136-145); TOTAL PROTEIN 5.9 G/DL (5.7-8.2)
[2024-02-19] MEDS: PANTOPRAZOLE 40MG VIAL IV ONE (12:09)
[2024-02-19] MEDS ORDERED: ISOVUE-370 76% 100ML VIAL As Ordered ONE (12:40)
[2024-02-19] MEDS: NS 500 ML IV ONE ×2 (13:38)
[2024-02-19] MEDS: POTASSIUM CHLORIDE 10MEQ SR TABLET PO ONE (14:24)
[2024-02-19 14:40] VITALS: BP 126/69; TEMP 96.7; O2SAT 97
[2024-02-19 14:55] VITALS: BP 103/63; TEMP 97.4; O2SAT 97
[2024-02-19 15:40] VITALS: BP 110/79; TEMP 97.8; O2SAT 100
[2024-02-19 15:45] VITALS: BP 115/76; O2SAT 100
== END 2024-02-19 15:53 | disposition short-term general hospital (02) ==
LOC: M ED 10:50
DX: K92.2 Gastrointestinal hemorrhage, unspecified (principal); D64.9 Anemia, unspecified; I25.119 Atherosclerotic heart disease of native coronary artery with unspecified angina pectoris; I50.22 Chronic systolic (congestive) heart failure; E11.9 Type 2 diabetes mellitus without complications; Z79.51 Long term (current) use of inhaled steroids; Z79.2 Long term (current) use of antibiotics; Z79.899 Other long term (current) drug therapy
CPT/HCPCS: 36430; 71045; 74174; 80047; 80048; 80076; 82803; 83605; 83690; 85025; 85610; 86850; 86870; 86900; 86901; 86920; 87040; 93005; 93041; 94760; 96361; 96374; 99285; C9113; P9016; Q9967

== ENCOUNTER → 2024-03-09 | Outpatient (REF) | payer MEDICARE | LOC: M LAB REF 16:06 | PROVIDERS: ATTEND Physician Assistant Medical | DX: D50.0 Iron deficiency anemia secondary to blood loss (chronic) (principal); E56.9 Vitamin deficiency, unspecified ==

== ENCOUNTER → 2024-05-05 | Outpatient (REF) | payer MEDICARE ==
[2024-05-05 19:25] LABS: PERCENT SATURATION 6.4 % (13.2-45.0)
[2024-05-05 19:27] LABS: FERRITIN 26.9 NG/ML (7.3-270.7)
== END ==
LOC: M LAB REF 17:32
PROVIDERS: ATTEND Nurse Practitioner Family
DX: R74.01 Elevation of levels of liver transaminase levels (principal)

== ENCOUNTER 2024-06-04 07:41 | Outpatient (CLI) | payer MEDICARE ==
[~2024-06-04] VITALS: Ht 162.6 cm; Wt 84.5 kg
[~2024-06-04 07:41] MED LIST changes: +ALBUTEROL SULFATE 2.5MG/0.5ML INH NEB SOLN INH PRN; +EPINEPHrine INJ 1 MG/ML 1ML AMP IM PRN; +diphenhydrAMINE 50MG/ML VIAL IV PRN; +methylPREDNISolone 125MG 2ML VIAL IV PRN
[2024-06-04 08:15] VITALS: BP 91/57; O2SAT 97
[2024-06-04] MEDS ORDERED: NS 1,000 ML IV SCH (08:30)
[2024-06-04] MEDS: IRON SUCROSE 500 MG in NS 250 ML OVER 4 HRS IV ONE (08:44)
[2024-06-04 09:15] VITALS: BP 100/61; O2SAT 98
[2024-06-04 10:15] VITALS: BP 98/58; O2SAT 95
[2024-06-04 11:15] VITALS: BP 100/61; O2SAT 97
[2024-06-04 13:10] VITALS: BP 98/65; O2SAT 96
== END 2024-06-04 13:10 | disposition home or self-care (01) ==
LOC: M INFU 07:41
PROVIDERS: ATTEND Nurse Practitioner Family
DX: D64.9 Anemia, unspecified (principal)
CPT/HCPCS: 96365; 96366; J1756

== ENCOUNTER → 2024-06-19 | Outpatient (REF) | payer MEDICARE ==
[~2024-06-19] MED LIST changes: -ALBUTEROL SULFATE 2.5MG/0.5ML INH NEB SOLN INH PRN; -EPINEPHrine INJ 1 MG/ML 1ML AMP IM PRN; -diphenhydrAMINE 50MG/ML VIAL IV PRN; -methylPREDNISolone 125MG 2ML VIAL IV PRN
== END ==
LOC: M LAB REF 16:12
PROVIDERS: ATTEND Nurse Practitioner Family
DX: N39.0 Urinary tract infection, site not specified (principal)

== ENCOUNTER → 2024-07-14 | Outpatient (REF) | payer MEDICARE | LOC: M LAB REF 16:19 | PROVIDERS: ATTEND Nurse Practitioner Family | DX: R35.0 Frequency of micturition (principal); N39.0 Urinary tract infection, site not specified ==

== ENCOUNTER → 2024-10-02 | Outpatient (CLI) | payer MEDICARE ==
[2024-10-02 13:07] LABS: BASO % 0.4 % (0.0-1.0); EOS % 0.8 % (0.0-3.0); HEMATOCRIT 39.9 % (36.0-47.0); LYMPH # 0.7 10^3/uL (1.5-5.0); LYMPH % 14.1 % (24.0-44.0); MEAN CORPUSCULAR HEMOGLOBIN 31.5 pg (27.0-33.0); MEAN CORPUSCULAR HGB CONC 32.6 g/dl (32.0-36.5); MEAN CORPUSCULAR VOLUME 96.6 fl (80.0-96.0); MONO # 0.6 10^3/uL (0.0-0.8); MONO % 11.5 % (2.0-8.0); NEUTROPHILS # 3.7 10^3/uL (1.5-8.5); PLATELET COUNT, AUTOMATED 185 10^3/uL (150-450); RED BLOOD COUNT 4.13 10^6/uL (4.00-5.40); WHITE BLOOD COUNT 5.1 10^3/uL (4.0-10.0)
[2024-10-02 14:07] LABS: ALKALINE PHOSPHATASE 85 U/L (35-104); ALT/SGPT 23 U/L (7.0-40); AST/SGOT 42 U/L (<34); BILIRUBIN,TOTAL 0.4 MG/DL (0.3-1.2); BLOOD UREA NITROGEN 33 MG/DL (9-23); CALCIUM LEVEL 10.5 MG/DL (8.3-10.6); CARBON DIOXIDE LEVEL 23 MMOL/L (20-31); CHLORIDE LEVEL 102 MMOL/L (98-107); CREATININE FOR GFR 0.77 MG/DL (0.55-1.30); GLOMERULAR FILTRATION RATE > 60.0 (>39); GLUCOSE, FASTING 141 MG/DL (74-106); POTASSIUM SERUM 5.2 MMOL/L (3.5-5.1); SODIUM LEVEL 137 MMOL/L (136-145); TOTAL PROTEIN 7.7 G/DL (5.7-8.2)
== END ==
LOC: M RAD 12:36
PROVIDERS: ATTEND Physician Assistant Medical
DX: B34.9 Viral infection, unspecified (principal)

== ENCOUNTER → 2025-03-23 | Outpatient (REF) | payer MEDICARE ==
[2025-03-23 13:00] LABS: APPEARANCE, URINE CLOUDY (CLEAR); BACTERIA, URINE AUTO 1+ (NEGATIVE); BILIRUBIN, URINE AUTO NEGATIVE (NEGATIVE); BLOOD, URINE BLOOD 3+ (NEGATIVE); GLUCOSE, URINE (UA) AUTO NEGATIVE (NEGATIVE); KETONE, URINE AUTO NEGATIVE (NEGATIVE); LEUKOCYTE ESTERASE, URINE AUTO 3+ (NEGATIVE); MUCUS, URINE SMALL (NEGATIVE); NITRITE, URINE AUTO NEGATIVE (NEGATIVE); PROTEIN, URINE AUTO 2+ mg/dL (NEGATIVE); RBC, URINE AUTO TNTC /HPF (0-3); SPECIFIC GRAVITY URINE AUTO 1.011 (1.002-1.035); SQUAMOUS EPITHELIAL CELL UR AU 4 /HPF (0-6); UROBILINOGEN, URINE AUTO 0.2 mg/dL (0.0-2.0); WBC, URINE AUTO TNTC /HPF (0-3)
== END ==
LOC: M LAB REF 11:46
PROVIDERS: ATTEND Physician Assistant Medical
DX: N39.0 Urinary tract infection, site not specified (principal)

== ENCOUNTER → 2025-04-28 | Outpatient (REF) | payer MEDICARE | LOC: M LAB REF 16:19 | PROVIDERS: ATTEND Physician Assistant | DX: H04.332 Acute lacrimal canaliculitis of left lacrimal passage (principal) ==

== ENCOUNTER → 2025-05-05 | Outpatient (REF) | payer MEDICARE | LOC: M LAB REF 14:24 | PROVIDERS: ATTEND Physician Assistant | DX: H04.332 Acute lacrimal canaliculitis of left lacrimal passage (principal) ==

== ENCOUNTER → 2025-05-11 | Outpatient (REF) | payer MEDICARE | LOC: M LAB REF 15:58 | PROVIDERS: ATTEND Physician Assistant | DX: K52.0 Gastroenteritis and colitis due to radiation (principal) ==

== ENCOUNTER → 2025-06-23 | Outpatient (REF) | payer MEDICARE ==
[~2025-06-23] MED LIST changes: +METO1TAB7 PO; +VENTAER INH
[2025-06-23 19:53] LABS: TOTAL PROTEIN,RANDOM URINE 28.5 MG/DL (0.0-14.0)
== END ==
LOC: M LAB REF 17:01
PROVIDERS: ATTEND Internal Medicine Nephrology
DX: R80.9 Proteinuria, unspecified (principal)

== ENCOUNTER 2025-06-24 14:03 | Observation (INO) | payer MEDICARE ==
[~2025-06-24] VITALS: Ht 160 cm; Wt 92.4 kg
[~2025-06-24 14:03] MED LIST changes: -METO1TAB7 PO; -VENTAER INH
[2025-06-24 14:33] LABS: BASO # 0.0 10^3/uL (0.0-0.2); BASO % 0.5 % (0.0-1.0); EOS # 0.1 10^3/uL (0.0-0.5); EOS % 1.4 % (0.0-3.0); LYMPH # 0.5 10^3/uL (1.5-5.0); LYMPH % 6.6 % (24.0-44.0); MONO # 0.7 10^3/uL (0.0-0.8); MONO % 8.8 % (2.0-8.0); NEUTROPHILS # 6.3 10^3/uL (1.5-8.5); NEUTROPHILS % 82.3 % (36.0-66.0); PLATELET COUNT, AUTOMATED 221 10^3/uL (150-450)
[2025-06-24 15:01] LABS: CK-MB VALUE MASS 3.3 NG/ML (<3.6)
[2025-06-24 15:02] LABS: ALT/SGPT 26.0 U/L (7.0-40); AST/SGOT 20.0 U/L (<34); CALCIUM LEVEL 9.9 MG/DL (8.3-10.6); CARBON DIOXIDE LEVEL 22.0 MMOL/L (20-31); CHLORIDE LEVEL 106.0 MMOL/L (98-107); CPK CREATINE PHOSPHOKINASE 36.0 U/L (34-145); CREATININE FOR GFR 0.84 MG/DL (0.55-1.30); GLOMERULAR FILTRATION RATE 71.5 (>39); MAGNESIUM LEVEL 1.8 MG/DL (1.8-2.4); MB/CK RELATIVE INDEX 9.16 (< OR =4); POTASSIUM SERUM 4.0 MMOL/L (3.5-5.1); SODIUM LEVEL 142.0 MMOL/L (136-145)
[2025-06-24 15:04] LABS: INR 1.21
[2025-06-24 15:51] LABS: CK-MB VALUE MASS 3.6 NG/ML (<3.6)
[2025-06-24 15:52] LABS: CPK CREATINE PHOSPHOKINASE 35.0 U/L (34-145); MB/CK RELATIVE INDEX 10.28 (< OR =4)
[2025-06-24] MEDS ORDERED: ISOVUE-370 76% 100 ML VIAL As Ordered ONE (17:04)
[2025-06-24 17:58] LABS: CK-MB VALUE MASS 3.3 NG/ML (<3.6)
[2025-06-24 18:11] LABS: CPK CREATINE PHOSPHOKINASE 35.0 U/L (34-145); MB/CK RELATIVE INDEX 9.42 (< OR =4)
[2025-06-24] MEDS: MONTELUKAST 10 MG TAB PO SCH (21:00)
[2025-06-24] MEDS ORDERED: VENTAER INH (21:56)
[2025-06-24] MEDS ORDERED: METO1TAB7 PO (22:01)
[2025-06-24] MEDS ORDERED: HOME MED LIST COMPLETE! XX SCH (22:10)
[2025-06-25] VITALS (18 sets, daily range): BP systolic 107–129; BP diastolic 58–67; TEMP 97.2–98.4; O2SAT 91–97
[2025-06-25] MEDS ORDERED: MOM 30 ML SUSPENSION UDC PO PRN (01:15)
[2025-06-25] MEDS ORDERED: MAALOX 30 ML SUSP *UDC PO PRN (01:15)
[2025-06-25] MEDS ORDERED: ACETAMINOPHEN 325 MG TAB PO PRN (01:15)
[2025-06-25] MEDS: FUROSEMIDE 40 MG/4 ML VIAL IV ONE (02:49)
[2025-06-25] MEDS: VENLAFAXINE **XR** 75MG CAPSULE PO SCH (08:42)
[2025-06-25] MEDS: PANTOPRAZOLE 40MG TAB PO SCH (08:42)
[2025-06-25] MEDS: DOCUSATE SODIUM 100 MG CAPSULE PO SCH (08:43)
[2025-06-25] MEDS: ENTRESTO 24-26 MG TABLET (SACUBITRIL/VALSARTAN) PO SCH (11:27)
[2025-06-25] MEDS: FUROSEMIDE 40 MG/4 ML VIAL IV SCH (11:28)
[2025-06-25] MEDS: METOPROLOL SUCC. 50 MG *XL* TAB PO SCH (17:04)
[2025-06-25] MEDS: RIVAROXABAN 20MG TAB PO SCH (17:04)
[2025-06-25] MEDS ORDERED: FUROSEMIDE 40 MG/4 ML VIAL IV SCH (18:00)
[2025-06-25] MEDS: SIMVASTATIN 40 MG TAB PO SCH (19:21)
[2025-06-25] MEDS: clonazePAM 0.5 MG TAB PO PRN (19:21)
[2025-06-25] MEDS ORDERED: GLUCOSE 4 GM CHEW PO PRN (19:30)
[2025-06-25] MEDS ORDERED: GLUCAGON INJ 1 MG VIAL SC PRN (19:30)
[2025-06-25] MEDS ORDERED: DEXTROSE 50% 50 ML SYRINGE IV PRN (19:30)
[2025-06-25] MEDS ORDERED: FLUTICASONE PROPIONATE 0.05% NASAL SPRAY 16 GM PRN (19:35)
[2025-06-25] MEDS ORDERED: CALCIUM CARBONATE 500 MG CHEW U/D PO PRN (19:35)
[2025-06-25] MEDS: INSULIN LISPRO (NovoLOG) PER UNIT SC SCH (20:49)
[2025-06-26] VITALS (29 sets, daily range): BP systolic 108–138; BP diastolic 53–78; TEMP 97–97.6; O2SAT 92–96
[2025-06-26 05:57] LABS: CALCIUM LEVEL 10.3 MG/DL (8.3-10.6); CARBON DIOXIDE LEVEL 31.0 MMOL/L (20-31); CHLORIDE LEVEL 102.0 MMOL/L (98-107); CREATININE FOR GFR 0.9 MG/DL (0.55-1.30); GLOMERULAR FILTRATION RATE 65.8 (>39); MAGNESIUM LEVEL 2.1 MG/DL (1.8-2.4); POTASSIUM SERUM 3.7 MMOL/L (3.5-5.1); SODIUM LEVEL 144.0 MMOL/L (136-145)
[2025-06-26 06:39] LABS: ESTIMATED AVERAGE GLUCOSE 157.0 MG/DL (60-110)
[2025-06-26] MEDS: SPIRONOLACTONE 25 MG TAB PO SCH (08:31)
[2025-06-26] MEDS: INSULIN LISPRO (NovoLOG) PER UNIT SC SCH (08:32)
[2025-06-27] VITALS (12 sets, daily range): BP systolic 120–122; BP diastolic 67–70; TEMP 97–97.3; O2SAT 92–99
[2025-06-27] MEDS: FUROSEMIDE 40 MG TAB PO SCH (08:46)
[2025-06-27 08:50] LABS: PLATELET COUNT, AUTOMATED 235 10^3/uL (150-450)
[2025-06-27 09:26] LABS: CALCIUM LEVEL 10.2 MG/DL (8.3-10.6); CARBON DIOXIDE LEVEL 28.0 MMOL/L (20-31); CHLORIDE LEVEL 103.0 MMOL/L (98-107); CREATININE FOR GFR 0.88 MG/DL (0.55-1.30); GLOMERULAR FILTRATION RATE 67.6 (>39); POTASSIUM SERUM 3.8 MMOL/L (3.5-5.1); SODIUM LEVEL 143.0 MMOL/L (136-145)
== END 2025-06-27 11:50 | disposition home or self-care (01) ==
LOC: M ED 14:03 → EDBD 14:03 → M ED INP 14:04 → M PCU 06-25 10:30
PROVIDERS: ADMIT Student in an Organized Health Care Education/Training Program; ATTEND Student in an Organized Health Care Education/Training Program
DX: I50.23 Acute on chronic systolic (congestive) heart failure (principal); R79.89 Other specified abnormal findings of blood chemistry; E11.9 Type 2 diabetes mellitus without complications; I11.0 Hypertensive heart disease with heart failure; I25.10 Atherosclerotic heart disease of native coronary artery without angina pectoris; Z95.0 Presence of cardiac pacemaker; I48.91 Unspecified atrial fibrillation; E78.5 Hyperlipidemia, unspecified; I08.0 Rheumatic disorders of both mitral and aortic valves; R94.31 Abnormal electrocardiogram [ECG] [EKG]; F32.A Depression, unspecified; F41.1 Generalized anxiety disorder; G47.33 Obstructive sleep apnea (adult) (pediatric); K21.9 Gastro-esophageal reflux disease without esophagitis; R53.83 Other fatigue; R06.00 Dyspnea, unspecified; R63.8 Other symptoms and signs concerning food and fluid intake; D64.9 Anemia, unspecified; Z90.49 Acquired absence of other specified parts of digestive tract; Z95.2 Presence of prosthetic heart valve; Z79.899 Other long term (current) drug therapy; Z79.01 Long term (current) use of anticoagulants
CPT/HCPCS: 36415; 71045; 71275; 76775; 80047; 80048; 80076; 82550; 82553; 83036; 83690; 83735; 83880; 84145; 84443; 84484; 85025; 85027; 85610; 85730; 93005; 93041; 93306; 94660; 94760; 96374; 96376; 97161; 99285; G0378; J1815; J1938; Q9967

== ENCOUNTER 2025-08-10 09:58 | Emergency (ER) | payer MEDICARE ==
[~2025-08-10] VITALS: Ht 160 cm; Wt 88.6 kg
[~2025-08-10 09:58] MED LIST changes: +METO1TAB7 PO; +VENTAER INH
[2025-08-10 11:42] LABS: BASO # 0.0 10^3/uL (0.0-0.2); BASO % 0.6 % (0.0-1.0); EOS # 0.1 10^3/uL (0.0-0.5); EOS % 2.0 % (0.0-3.0); LYMPH # 0.4 10^3/uL (1.5-5.0); LYMPH % 7.0 % (24.0-44.0); MONO # 0.4 10^3/uL (0.0-0.8); MONO % 8.2 % (2.0-8.0); NEUTROPHILS # 4.1 10^3/uL (1.5-8.5); NEUTROPHILS % 82.0 % (36.0-66.0); PLATELET COUNT, AUTOMATED 213 10^3/uL (150-450)
[2025-08-10 12:08] LABS: CALCIUM LEVEL 9.3 MG/DL (8.3-10.6); CARBON DIOXIDE LEVEL 23.0 MMOL/L (20-31); CHLORIDE LEVEL 109.0 MMOL/L (98-107); CREATININE FOR GFR 0.86 MG/DL (0.55-1.30); GLOMERULAR FILTRATION RATE 69.5 (>39); POTASSIUM SERUM 3.6 MMOL/L (3.5-5.1); SODIUM LEVEL 144.0 MMOL/L (136-145)
[2025-08-10] MEDS: NS (Normal Saline) 0.9% 1,000 ML IV ONE (12:15)
[2025-08-10 12:49] VITALS: TEMP 97.2
[2025-08-10 13:15] VITALS: BP 128/60; O2SAT 95
== END 2025-08-10 13:53 | disposition home or self-care (01) ==
LOC: M ED 09:58
DX: R19.7 Diarrhea, unspecified (principal); Z86.73 Personal history of transient ischemic attack (TIA), and cerebral infarction without residual deficits; Z79.51 Long term (current) use of inhaled steroids; Z79.01 Long term (current) use of anticoagulants; Z79.899 Other long term (current) drug therapy